=== PATIENT | female | born 1955 | race Caucasian/White ===

== ENCOUNTER 2016-11-27 13:08 | Inpatient (IN) | payer OTHER, MEDICARE ==
[2016-11-27] VITALS (11 sets, daily range): BP systolic 141–197; BP diastolic 67–125; PULSE 57–77; RESP 18–24; TEMP 97.9–98.7; O2SAT 95–98
[~2016-11-27 13:08] MED LIST: AMLO10TA2 PO; GABA300C5 PO; HUMU70IN IJ; HYDR25TA5 PO; IBUP800T23 PO; LISI40TA PO; MELO-1 PO; METF850T PO; METO25TA3 PO; OMEP20CA2 PO; PRAV20TA2 PO; TRIA.1%T TOPICAL
--- NOTE | 2016-11-27 13:31 | PD ---
Physical Exam Time Seen by Provider: 13:29 Narrative 61 y/o with one week chest pain. Seen by dr. Norton and sent here because of an abnormal ekg according to the patient. Vital signs reviewed. Seen at triage desk. Awaiting bed placement. Data Data Last Documented VS Vital Signs Date Time Temp Pulse Resp B/P Pulse Ox O2 Delivery O2 Flow Rate FiO2 11/27/16 13:12 98.4 70 24 197/125 98 Room Air [facility] Medical Record Reviewed: Yes Supervised Visit with LUKASZ: No Jordin Campbell Nov 27, 2016 13:31
[2016-11-27] MEDS ORDERED: ASPIRIN 81 MG CHEW TAB PO STA (14:12)
--- NOTE | 2016-11-27 14:23 | PD ---
HPI Chief Complaint: Chest Pain Time Seen by Provider: 14:05 Travel History International Travel<30 days: No Contact w/Intl Traveler<30days: No Traveled to known affect area: No History of Present Illness HPI 61yo F with PMH of DM, HTN, GERD was sent by her PMD for abnormal EKG today. Pt states she had pressure like chest pain on 11/16, 11/17 and 11/18/16 and that it had resolved but decided to go to her PMD today to follow up on it. Pt was found to have abnormal EKG there and sent here for evaluation. States that it was constant, pressure like and associated with SOB, nausea and diaphoresis. Pt currently denies any chest pain. Denies any fever, n/v, abdominal pain, focal weakness or numbness. PFSH Past Medical History Blood Disorders: No Heart Rhythm Problems: No Cancer: No Cardiovascular Problems: No High Cholesterol: Yes Chest Pain: Yes Congestive Heart Failure: No Diabetes: Yes Patient Takes Glucophage: No Endocrine: Yes Gastrointestinal Disorders: Yes (GERD,REFLUX) Genitourinary: No Hepatitis: No Hiatal Hernia: No Hypertension: Yes Immune Disorder: No Musculoskeletal: No Neurologic: Yes (INVOLUNTARY MUSCLE MOVEMENT) Psychiatric: No Reproductive: No Respiratory: No Myocardial Infarction: No Thyroid Disease: No Tetanus Vaccination: Unknown Influenza Vaccination: No ?: Not Menopausal: Yes Past Surgical History AICD: No Joint Replacement: No Pacemaker: No Social History Alcohol Use: No Tobacco Use: No (QUIT NOVEMBER 2016) Substance Use: No Allergies-Medications (Allergen,Severity, Reaction): Coded Allergies: Keflex (Verified Allergy, Severe, RASH, 08/07/16) Reported Meds & Prescriptions Reported Meds & Active Scripts Active Humulin 70-30 Inj (Insulin NPH Isophane-Reg (Human) 70-30 Inj) 1,000 Unit/10 Ml Vial 60 Units IJ BID PRN 30 Days Amlodipine (Amlodipine Besylate) 10 Mg Tab 10 Mg PO DAILY Ibuprofen 800 Mg Tab 800 Mg PO TID Lisinopril 40 Mg Tab 40 Mg PO DAILY Triamcinolone Topical (Triamcinolone Acetonide) 0.1% Cream 1 Applic TOPICAL BID Reported Gabapentin 300 Mg Cap 300 Mg PO TID Hydrochlorothiazide 25 Mg Tab 25 Mg PO DAILY Metformin (Metformin HCl) 850 Mg Tab 850 Mg PO BIDPC With meals Metoprolol Tartrate 25 Mg Tab 25 Mg PO BID Omeprazole 20 Mg Cap 20 Mg PO DAILY Review of Systems Except as stated in HPI: all other systems reviewed are Neg Physical Exam Narrative GENERAL: 61yo F not in distress. SKIN: Focused skin assessment warm/dry. HEAD: Atraumatic. Normocephalic. EYES: Pupils equal and round. No scleral icterus. No injection or drainage. ENT: No nasal bleeding or discharge. Mucous membranes pink and moist. NECK: Trachea midline. No JVD. CARDIOVASCULAR: Regular rate and rhythm. No murmur appreciated. RESPIRATORY: No accessory muscle use. Clear to auscultation. Breath sounds equal bilaterally. GASTROINTESTINAL: Abdomen soft, non-tender, nondistended. No rebound tenderness or guarding. MUSCULOSKELETAL: No obvious deformities. No clubbing. No cyanosis. No edema. NEUROLOGICAL: Awake and alert. No obvious cranial nerve deficits. Motor grossly within normal limits. Normal speech. PSYCHIATRIC: Appropriate mood and affect; insight and judgment normal. Data Data Last Documented VS Vital Signs Date Time Temp Pulse Resp B/P Pulse Ox O2 Delivery O2 Flow Rate FiO2 11/27/16 14:03 59 21 169/79 98 Room Air 11/27/16 13:12 98.4 Orders Electrocardiogram (11/27/16 ) Troponin I (11/27/16 14:12) Ckmb (Isoenzyme) Profile (11/27/16 14:12) Complete Blood Count With Diff (11/27/16 14:12) Magnesium (Mg) (11/27/16 14:12) Prothrombin Time / Inr (Pt) (11/27/16 14:12) Act Partial Throm Time (Ptt) (11/27/16 14:12) Chest, Single Ap (11/27/16 14:12) Aspirin Chew (Aspirin Chew) (11/27/16 14:12) Basic Metabolic Panel (Bmp) (11/27/16 14:19) Cardiac Catheterization (11/27/16 ) Heparin-Ns/Pf Inj (Heparin-Ns/Pf Inj) (11/27/16 15:09) Midazolam Inj (Versed Inj) (11/27/16 15:09) Fentanyl Inj (Fentanyl Inj) (11/27/16 15:09) Heparin Inj (Heparin Inj) (11/27/16 15:10) Dextrose 50% In Ted (Syr) Inj (D50w (Syr (11/27/16 15:19) Vital Signs (Adult) Q4H (11/27/16 15:19) Crozer / Telemetry .CONTINUOUS (11/27/16 15:19) Sodium Chloride 0.9% Flush (Ns Flush) (11/27/16 15:30) Sodium Chloride 0.9% Flush (Ns Flush) (11/27/16 21:00) Acetaminophen (Tylenol) (11/27/16 15:30) Ondansetron Inj (Zofran Inj) (11/27/16 15:30) Naloxone Inj (Narcan Inj) (11/27/16 15:30) Docusate Sodium-Senna (Jennifer-Colace) (11/27/16 21:00) Magnesium Hydroxide Liq (Milk Of Magnesi (11/27/16 15:30) Sennosides (Senokot) (11/27/16 15:30) Bisacodyl Supp (Dulcolax Supp) (11/27/16 15:30) Lactulose Liq (Lactulose Liq) (11/27/16 15:30) Consult Cardiology (11/27/16 ) Admit Order (Ed Use Only) (11/27/16 15:19) Labs Laboratory Tests Test 11/27/16 14:15 White Blood Count 10.1 TH/MM3 Red Blood Count 4.33 MIL/MM3 Hemoglobin 13.1 GM/DL Hematocrit 38.8 % Mean Corpuscular Volume 89.8 FL Mean Corpuscular Hemoglobin 30.2 PG Mean Corpuscular Hemoglobin 33.7 % Concent Red Cell Distribution Width 13.1 % Platelet Count 420 TH/MM3 Mean Platelet Volume 8.7 FL Neutrophils (%) (Auto) 61.5 % Lymphocytes (%) (Auto) 28.5 % Monocytes (%) (Auto) 8.1 % Eosinophils (%) (Auto) 1.4 % Basophils (%) (Auto) 0.5 % Neutrophils # (Auto) 6.2 TH/MM3 Lymphocytes # (Auto) 2.9 TH/MM3 Monocytes # (Auto) 0.8 TH/MM3 Eosinophils # (Auto) 0.1 TH/MM3 Basophils # (Auto) 0.0 TH/MM3 CBC Comment DIFF FINAL Differential Comment Prothrombin Time 11.5 SEC Prothromb Time International 1.0 RATIO Ratio Activated Partial 30.3 SEC Thromboplast Time Sodium Level 138 MEQ/L Potassium Level 4.0 MEQ/L Chloride Level 103 MEQ/L Carbon Dioxide Level 26.0 MEQ/L Anion Gap 9 MEQ/L Blood Urea Nitrogen 19 MG/DL Creatinine 0.88 MG/DL Estimat Glomerular Filtration 66 ML/MIN Rate Random Glucose 70 MG/DL Calcium Level 9.3 MG/DL Magnesium Level 1.8 MG/DL Total Creatine Kinase 93 U/L Troponin I 0.96 NG/ML [facility] Medical Decision Making Medical Screen Exam Complete: Yes Emergency Medical Condition: Yes Interpretation(s) EKG: Sinus bradycardia at 55bpm. Q wave III, aVF. 1mm ST segment elevation II , III, aVF. Differential Diagnosis ACS vs. pneumonia vs. Narrative Course 61yo F presents to the ED after abnormal EKG at her PMD's office today. States her chest pain was about a week ago from 11/16-11/18/16. Pt decides to follow up with her PMD today. EKG showed Q wave III, aVF as well as TWI inversion and 1mm ST elevation in III, aVF. Pt currently denies any chest pain. Triage wrote chest pain radiating down bilateral arms so I clarified with pt and she has intermittent heaviness in bilateral arms for 2 years. States that she was told it was probably neuropathy. States she currently does not have that. Discussed with Dr. Allan immediately after reviewing the EKG, thinks she had a recent NC. Dr. Allan came to evaluate the patient in the ED. States he will bring her to cardiac cath now but it is not a STEMI and heparin is not needed at this time. CXR negative. Labs reviewed, no leukocytosis. Troponin elevated at 0.96. Pt is already physically in the cardiac laborer tin can. Discussed with Dr. Palmira Stern and admitted to her service. Critical Care Narrative Aggregate critical care time was 35 minutes. Time to perform other separately billable procedures was not included in the critical care time. My time did not include minutes spent treating any other patients simultaneously or on activities that did not directly contribute to the patient's treatment. The services I provided to this patient were to treat and/or prevent clinically significant deterioration that could result in: cardiovascular collapse or . I provided critical care services requiring my management, as noted below: Chart data review, documentation time, medication orders and management, vital sign assessments/reviewing monitor data, ordering and reviewing lab tests, ordering and interpreting/reviewing x-rays and diagnostic studies, care of the patient and discussion of the patient with the admitting physicians. Diagnosis Primary Impression: Chest pain Qualified Code: R07.9 - Chest pain, unspecified type Admitting Information Admitting Physician Requests: Admit Bárbara Holbrook DO Nov 27, 2016 14:23 Bárbara Holbrook DO Nov 27, 2016 14:23
--- NOTE | 2016-11-27 14:52 | RADRPT ---
EXAM DATE/TIME: 11/27/2016 14:39 [place] COMPARISON: No previous studies available for comparison. INDICATIONS : Chest pain MEDICAL HISTORY : None. SURGICAL HISTORY : None. ENCOUNTER: Initial ACUITY: 1 day PAIN SCORE: 4/10 LOCATION: chest FINDINGS: A single view of the chest demonstrates the lungs to be symmetrically aerated without evidence of mas s, infiltrate or effusion. The cardiomediastinal contours are unremarkable. Osseous structures are intact. CONCLUSION: Normal examination. Lake Williamson MD on November 27, 2016 at 14:50 Board Certified Radiologist. This report was verified electronically.
[2016-11-27 15:06] LABS: AUTOMATED NEUTROPHIL # 6.2 TH/MM3 (1.8-7.7); BASOPHIL % 0.5 % (0.0-2.0); EOSINOPHIL # 0.1 TH/MM3 (0-0.4); EOSINOPHIL % 1.4 % (0.0-4.0); HEMATOCRIT 38.8 % (35.0-46.0); HEMO FLAGS DIFF FINAL; LYMPH % 28.5 % (9.0-44.0); LYMPHOCYTE # 2.9 TH/MM3 (1.0-4.8); MEAN CELL VOLUME 89.8 FL (80.0-100.0); MEAN CORPUSCULAR HEMOGLOBIN 30.2 PG (27.0-34.0); MEAN CORPUSCULAR HGB CONC 33.7 % (32.0-36.0); MONO % 8.1 % (0.0-8.0); NEUT % 61.5 % (16.0-70.0); PLATELET COUNT 420 TH/MM3 (150-450); RED BLOOD COUNT 4.33 MIL/MM3 (4.00-5.30); RED CELL DISTRIBUTION WIDTH 13.1 % (11.6-17.2); WHITE BLOOD COUNT 10.1 TH/MM3 (4.0-11.0)
[2016-11-27 15:08] LABS: APTT (PATIENT) 30.3 SEC (24.3-30.1); PROTHROMBIN TIME - PATIENT 11.5 SEC (9.8-11.6)
[2016-11-27] MEDS ORDERED: IOHEXOL 350 MG/ML 100 ML BTL (for Cath Lab) OTHER ONE (15:08)
[2016-11-27] MEDS ORDERED: HEPARIN-NS/PF INJ 500 ML ONE ×2 (15:09→15:22)
[2016-11-27] MEDS ORDERED: MIDAZOLAM HCL 2 MG/2 ML VIAL ONE (15:09)
[2016-11-27] MEDS ORDERED: HEPARIN SODIUM - IV 10,000 UNITS/10 ML VIAL ONE (15:10)
[2016-11-27 15:19] LABS: MAGNESIUM 1.8 MG/DL (1.5-2.5)
[2016-11-27] MEDS ORDERED: DEXTROSE 50% IN WATER 50 ML SYRINGE ONE (15:19)
[2016-11-27] MEDS ORDERED: ONDANSETRON HCL 4 MG/2 ML VIAL IVP PRN (15:30)
[2016-11-27] MEDS ORDERED: BISACODYL 10 MG SUPP RECTAL PRN (15:30)
[2016-11-27] MEDS ORDERED: NALOXONE HCL 0.4 MG/ML AMP IV PRN (15:30)
[2016-11-27] MEDS ORDERED: SENNOSIDES 8.6 MG TAB PO PRN (15:30)
[2016-11-27] MEDS ORDERED: MAGNESIUM HYDROXIDE SUSP 30 ML CUP PO PRN (15:30)
[2016-11-27] MEDS ORDERED: ACETAMINOPHEN 325 MG TAB PO PRN (15:30)
[2016-11-27] MEDS ORDERED: SODIUM CHLORIDE 0.9% FLUSH 10 ML FLUSH IV FLUSH PRN (15:30)
[2016-11-27] MEDS ORDERED: LACTULOSE SYRUP 20 GM/30 ML CUP PO PRN (15:30)
--- NOTE | 2016-11-27 16:32 | CATHPROC ---
[facility] HIS Report Study Information Study Number Admission Scheduled Start Study Start [id number] Nov 27 2016 1:08PM 11/27/2016 Nov 27 2016 3:08PM [facility] Cardiac Catheterization Admit Source Facility Department Other [facility] - Mold Shop Supervisor Physician and Clinical Staff Initial Robert Thomas Meal Packer Willow Martin,RN Other cathlab, cathlab Recorder Curtis Salazar RCIS(BS) Scrub Jeny MccordRT(R) Procedures Performed Procedure Location (Site) Vessel Name Coronary Angiograms LCA Left Coronary L Heart Cath Equipment Time Product Manufacturing Professional Description Size Mfg Part Number Used/Scraped TRANSDUCER, TRUWAVE [id number] 15:10 PRASAD MARTIN * Used W/STOCKCOCK *[id number]- INTRODUCER SET, 15:44 [employer] FR 5 SC-NT-U-SST Used MICROPUNCTURE, STIFFENED *[id number] [id number] *[id number] [id number] *[id number] 15:10 [employer] INDUSTRIES PACK, CCL CUSTOM * Used *[id number] 15:10 Beisen WIRE, 3MMJ .035 180CM 180CM Used *[id number] 15:10 [employer] MANIFOLD, 4 PORT * Used *[id number] 15:10 [employer] BLANKET,WARM AIR CCL * Used *[id number] 15:45 TER[employer]ozun [employer] MEDICAL SHEATH, FR5 TERUMO (10CM) FR 5 Used *[id number] History: Allergies Allergy Reaction Keflex RASH History: Risk Factors Family History of Hypertension Dyslipidemia Previous TN Previous Heart Failure Premature CAD Yes Yes Yes No No Prior Valve Prior PCI Prior CABG Surgery No No No Cerebrovascular Peripheral Artery Chronic Lung On Dialysis Diabetes Diabetes Therapy Disease Disease Disease No No No No Yes Oral History: Symptoms/Diagnosis Selection Items Angina-unstable History: Stress Tests Stress or Imaging Studies Performed No History: Other Disease Selection Items HTN History: Other Current Smoker Method Packs a Day Years Used Pack Years Yes Cigarettes 1 45 45 Labs Hgb (g/dl) 11.60-17.00 Not Drawn Glucose (mg/dl) Creatinine (mg/dl) 74.00-106.00 0.50-1.30 70 Not Drawn Troponin I (ng/ml) CPK-MB (ng/ML) 0.02-0.05 0.50-3.60 0.96 Not Drawn Medication Medication Total Dose (Bolus/Oral) Medication Total Dosage/Unit 1% XYLOCAINE 20 mL FENTANYL 25 mcg VERSED 0.5 mg Medications (Bolus/Oral) Medication Time Given Dosage/Unit Administered By Reason VERSED 11/27/2016 3:37:57 PM 0.5 mg Willow Martin 0.5 mg VERSED given in lab by Willow Martin, RN in Left Antecubital via Peripheral IV. Ordered by Robert Allan. FENTANYL 11/27/2016 3:38:05 PM 25 mcg Deo Martina 25 mcg FENTANYL given in lab by Willow Martin, GIANCARLO in Left Antecubital via Peripheral IV. Ordered by Robert Allan. 1% XYLOCAINE 11/27/2016 3:39:02 PM 20 mL Robert Allan 20 mL 1% XYLOCAINE given in lab by Robert Allan in Right Groin via Subcutaneous. Medication (Drip) Medication Time Given Dosage/Unit Concentration/Unit Diluent (ml) Solutio n IV Solutions 11/27/2016 3:08:27 PM 0 mL (IV) 500 NaCl .9 Patient arrived on IV Solutions given by cathlab, cathgabriel in Left Antecubital via Peripheral IV. Pump /Drip Flow = 20 ml/hr using NaCl .9. Ordered by Robert Allan. Initial Case Assessment Cardiovascular HR Rhythm NIBP Chest Pain 58 sinus 153/64 0 Edema Present Skin color Skin None Normal Warm Dry Circulatory - Right Pulses Dorsalis Pedis Femoral 3 3 Scale (0,1,2,3,4,d) Circulatory - Left Pulses Dorsalis Pedis Femoral 3 3 Scale (0,1,2,3,4,d) Neurological State Oriented to time-place- Alert Moves all extremities person Respiration - General Respiration Rate SpO2 (%) (B/min) 15 98 Final Case Assessment Cardiovascular HR Rhythm NIBP Chest Pain 64 sinus 146/79 0 Edema Present Skin color Skin None Normal Warm Dry Circulatory - Right Pulses Dorsalis Pedis Femoral 3 3 Scale (0,1,2,3,4,d) Circulatory - Left Pulses Dorsalis Pedis Femoral 3 3 Scale (0,1,2,3,4,d) Neurological State Oriented to time-place- Alert Moves all extremities person Respiration - General Respiration Rate SpO2 (%) (B/min) 15 98 Chronological Log Time Study Chronological Log 15:08:15 Patient arrived via Bed. Labs are pending- MD aware. 15:08:16 Patient Name, D.O.B, / Armband Verified By R.N. 15:08:17 Consent signed by the physician and the patient and verified by the Mold Shop Supervisor staff. 15:08:17 Pre-op and post- op instructions given; patient acknowledges understanding of instructions. 15:08:18 Verbal Stimulation=2 Physical Stimulation=2 Airway=2 Respiration=2 TOTAL=8. (0=absent, 1=li mited, 2=present) 15:08:18 Presedation assessment performed by Mold Shop Supervisor RN. 15:08:19 Immediate Presedation assesment performed by physician. 15:08:20 Patient has been NPO for More than 6Hrs. 15:08:22 Skin Breakdown- none per patient 15:08:25 Patient Warmer Placed on the Table. 15:08:26 Catie Prominences Protected 15:08:27 A # 20 IV was noted in the Antecubital (left). Grade = 0 Patient arrived on IV Solutions given by cathlab, cathlab in Left Antecubital via Peripheral IV . Pump/Drip Flow = 20 15:08:27 ml/hr using NaCl .9. Ordered by Robert Allan. 15:08:28 History and physical on the chart or being dictated. Vitals capture started with the following parameters, Patient=Adult, Interval=5 min, Initial Pr ygjldm=339 mmHg, 15:11:06 Deflation Rate=5 mmHg 15:12:23 Reference ECG taken 15:13:34 HR=60 bpm, RGGX=082/64 mmhg, SpO2=96.0 %, Resp=12 B/min, Pain=0, Peggy=10, Casas=2 Assessment: Initial Case, HR=58 BPM, Rhythm=sinus, XRTH=770/64 mmhg, Chest Pain=0, Edema=None, Color=Normal, Skin = Warm, Dry Right Pulses: Braden Ped=3, Femoral=3 15:16:09 Left Pulses: Braden Ped=3, Femoral=3 Neurological: State=Alert, Ox3, FAGAN Respiration: Resp=15 B/min, SpO2=98 % 15:16:50 HR=57 bpm, FERP=868/71 mmhg, SpO2=96.0 %, Resp=15 B/min, Pain=0, Peggy=10, Casas=2 15:18:35 MD arrived. 15:21:51 HR=61 bpm, QBLJ=672/68 mmhg, SpO2=93.0 %, Resp=18 B/min, Pain=0, Peggy=10, Casas=2 15:26:50 HR=60 bpm, ZPCI=879/69 mmhg, SpO2=94.0 %, Resp=13 B/min, Pain=0, Peggy=10, Casas=2 15:28:14 Bilateral groins prepped with 2% chlorhexidine, and with a 3 min. waiting time. 15:28:20 Contrast Scanned 15:28:21 Immediate Presedation assesment performed by physician. 15:31:49 HR=70 bpm, IYIL=519/74 mmhg, SpO2=92.0 %, Resp=15 B/min, Pain=0, Peggy=10, Casas=2 15:35:32 Pressure channel 1 zeroed. 15:36:49 HR=61 bpm, AOOX=709/74 mmhg, SpO2=91.0 %, Resp=12 B/min, Pain=0, Peggy=10, Casas=2 Time Out. Correct patient, correct procedure,correct physician, ,power injector not loaded with contrast with surgical 15:37:36 team present. Time Out Concurred by MD, individual staff in procedure 15:37:49 Case Start 15:37:50 Verbal Stimulation=2 Physical Stimulation=2 Airway=2 Respiration=2 TOTAL=8. (0=absent, 1=li mited, 2=present) 0.5 mg VERSED given in lab by Willow Martin, RN in Left Antecubital via Peripheral IV. Orde red by Jerrell, 15:37:57 Robert. 25 mcg FENTANYL given in lab by Willow Martin, GIANCARLO in Left Antecubital via Peripheral IV. Or dered by Jerrell, 15:38:05 Robert. 15:39:02 20 mL 1% XYLOCAINE given in lab by Robert Allan in Right Groin via Subcutaneous. 15:41:48 HR=63 bpm, GJNV=147/79 mmhg, SpO2=94.0 %, Resp=15 B/min, Pain=0, Peggy=10, Casas=2 15:43:52 Access site was Right Femoral Artery. 15:44:04 A SHEATH, FR5 TERUMO (10CM) FR 5 was advanced into the Fem Art (right) using the Percutaneo us technique. 15:46:13 An injection in the Fem Art (right) was made through the SHEATH, FR5 TERUMO (10CM) FR 5. 15:46:21 A JR 4.0 INFINITI CATHETER FR 5 was advanced over a wire. contrast was used for injections. 15:46:55 HR=59 bpm, MSAK=212/73 mmhg, SpO2=94.0 %, Resp=14 B/min, Pain=0, Peggy=10, Casas=2 Recorded Pressure: LV, HR=57, Condition=Condition 1 15:48:54 (Left Ventricle) LV 143/-3/16 Recorded Pressure: LV, Ao, HR=61, Condition=Condition 1 15:49:13 (Left Ventricle) LV 154/-3/16, (Aorta) Ao 154/63/97 Recorded Pressure: Ao, HR=60, Condition=Condition 1 15:49:32 (Aorta) Ao 151/61/94 15:51:54 HR=59 bpm, CNEE=995/75 mmhg, SpO2=95.0 %, Resp=11 B/min, Pain=0, Peggy=10, Casas=2 15:56:51 HR=62 bpm, PYFZ=774/75 mmhg, SpO2=92.0 %, Resp=19 B/min, Pain=0, Peggy=10, Casas=2 After removing the current catheter a JL 4.0 INFINITI CATHETER FR 5 was advanced over a WIRE, 3 MMJ .035 180CM 15:57:25 180CM. 16:00:34 The LCA was injected and visualized at various angles. contrast used. 16:01:50 HR=67 bpm, AMWZ=950/79 mmhg, SpO2=93.0 %, Resp=16 B/min, Pain=0, Peggy=10, Casas=2 16:04:53 Catheter was removed 16:05:23 Case End Assessment: Final Case, HR=64 BPM, Rhythm=sinus, HIZM=759/79 mmhg, Chest Pain=0, Edema=None, Color=Normal, Skin = Warm, Dry Right Pulses: Braden Ped=3, Femoral=3 16:06:00 Left Pulses: Braden Ped=3, Femoral=3 Neurological: State=Alert, Ox3, FAGAN Respiration: Resp=15 B/min, SpO2=98 % 16:06:51 HR=63 bpm, WNVD=059/79 mmhg, SpO2=96.0 %, Resp=17 B/min, Pain=0, Peggy=10, Casas=2 16:08:25 Cine recording checked. 16:09:28 Catheter(s) removed without difficulty 16:11:54 HR=63 bpm, DAOE=678/80 mmhg, SpO2=95.0 %, Resp=14 B/min, Pain=0, Peggy=10, Casas=2 16:16:57 HR=60 bpm, DDMW=850/78 mmhg, SpO2=96.0 %, Resp=12 B/min, Pain=0, Peggy=10, Casas=2 16:21:58 HR=60 bpm, NFXQ=618/73 mmhg, SpO2=97.0 %, Resp=16 B/min, Pain=0, Peggy=10, Casas=2 16:26:53 HR=70 bpm, HFSU=186/88 mmhg, SpO2=97.0 %, Resp=19 B/min, Pain=0, Peggy=10, Casas=2 16:28:36 Sterile dressing applied to site 16:28:41 Bedside Report will be given. 16:28:43 Contrast Scanned 16:28:45 Verbal Stimulation=2 Physical Stimulation=2 Airway=2 Respiration=2 TOTAL=8. (0=absent, 1=l imited, 2=present) 16:28:52 A Left Heart Cath was performed. 16:28:59 Vitals capture stopped. 16:29:00 Patient moved to [facility] End Study - Contrast Media Used In Study Contrast Total Opened (mL) Total Used (mL) Total Wasted (mL) Omnipaque 80 80 0 End Study - Radiation Exposure Fluoro Time (minutes) 7.3 End Study - Sheaths Sheaths Pulled By Sheath Hold Time (min) Jeny Mccord 20 End Study - Patient Disposition Complications Transferred To Interventional Outcome No Mold Shop Supervisor Holding No attempt made
[2016-11-27] MEDS ORDERED: hydrALAZINE HCL 20 MG/ML VIAL IV PUSH PRN (16:45)
[2016-11-27] MEDS ORDERED: CLOPIDOGREL 300 MG TAB PO ONE (16:45)
[2016-11-27] MEDS ORDERED: oxyCODONE/ACETAMINOPHEN 5 MG/325 MG TAB PO PRN ×2 (16:45)
--- NOTE | 2016-11-27 16:58 | HHI.HP ---
[facility] Sven Valera MD Admission Diagnosis Recent [place] Diagnoses: Chief Complaint: abdnomal EKG Travel History International Travel<30 Days: No Contact w/Intl Traveler <30 Da: No Traveled to Known Affected Are: No History of Present Illness 61 y/o F with PMHx of HTN, T2DM insulin dependent, peripheral neuropathy, and tobacco dependence stopped November 16, 2016 who presented with abnormal EKG. Patient stated that one week ago she had chest pain described as a tightness with severe nausea vomiting from 11/16-11/18. She stated that she did not seek medical attention because she thought was a new medication that she was on. Patient stated on that day she also stop smoking. She smoked a half to 1 pack per day for 45 years. Patient saw her primary care physician today in regards to that episode. She stated that he did EKG and sent her to the emergency department. On the EKG she was found to have Q wave III, aVF as well as TWI inversion and 1mm ST elevation in III, aVF. Licensed Optical Dispenser Dr. Allan consulted and patient was taken to the [facility]. Patient was found to have a 99 % occlusion RCA. Review of Systems Constitutional: DENIES: Diaphoretic episodes, Fatigue, Fever, Weight gain, Weight loss, Chills, Dizziness, Change in appetite, Night Sweats Endocrine: DENIES: Abnorml menstrual pattern, Heat/cold intolerance, Polydipsia , Polyuria, Polyphagia Eyes: DENIES: Blurred vision, Diplopia, Eye inflammation, Eye pain, Vision loss , Photosensitivity, Double Vision Ears, nose, mouth, throat: DENIES: Tinnitus, Hearing loss, Vertigo, Nasal discharge, Oral lesions, Throat pain, Hoarseness, Ear Pain, Running Nose, Epistaxis, Sinus Pain, Toothache, Odynophagia Respiratory: DENIES: Apneas, Cough, Snoring, Wheezing, Hemoptysis, Sputum production, Shortness of breath Cardiovascular: DENIES: Chest pain, Palpitations, Syncope, Dyspnea on Exertion , PND, Lower Extremity Edema, Orthopnea, Claudication Gastrointestinal: DENIES: Abdominal pain, Black stools, Bloody stools, Constipation, Diarrhea, Nausea, Vomiting, Difficulty Swallowing, Anorexia Genitourinary: DENIES: Abnormal vaginal bleeding, Dysmenorrhea, Dyspareunia, Sexual dysfunction, Urinary frequency, Urinary incontinence, Urgency, Hematuria , Dysuria, Nocturia, Vaginal discharge Musculoskeletal: DENIES: Joint pain, Muscle aches, Stiffness, Joint Swelling, Back pain, Neck pain Integumentary: DENIES: Abnormal pigmentation, Pruritus, Rash, Nail changes, Breast masses, Breast skin changes, Nipple discharge Hematologic/lymphatic: DENIES: Bruising, Lymphadenopathy Immunologic/allergic: DENIES: Eczema, Urticaria Neurologic: DENIES: Abnormal gait, Headache, Localized weakness, Paresthesias, Seizures, Speech Problems, Tremor, Poor Balance Psychiatric: DENIES: Anxiety, Confusion, Mood changes, Depression, Hallucinations, Agitation, Suicidal Ideation, Homicidal Ideation, Delusions Past Family Social History Past Medical History Hypertension, type 2 diabetes insulin-dependent, peripheral neuropathy, anxiety , cerebritis, history of back spasms, GERD Past Surgical History Wrist surgery Reported Medications Humulin 70-30 Inj (Insulin NPH Isophane-Reg (Human) 70-30 Inj) 1,000 Unit/10 Ml Vial 60 Units IJ BID PRN 30 Days Amlodipine (Amlodipine Besylate) 10 Mg Tab 10 Mg PO DAILY Ibuprofen 800 Mg Tab 800 Mg PO TID Lisinopril 40 Mg Tab 40 Mg PO DAILY Triamcinolone Topical (Triamcinolone Acetonide) 0.1% Cream 1 Applic TOPICAL BID Gabapentin 300 Mg Cap 300 Mg PO TID Hydrochlorothiazide 25 Mg Tab 25 Mg PO DAILY Metformin (Metformin HCl) 850 Mg Tab 850 Mg PO BIDPC With meals Metoprolol Tartrate 25 Mg Tab 25 Mg PO BID Omeprazole 20 Mg Cap 20 Mg PO DAILY Allergies: Coded Allergies: Keflex (Verified Allergy, Severe, RASH, 08/07/16) Active Ordered Medications Current Medications Aspirin 324 mg 324 mg NOW STAT PO Last administered on 11/27/16 14:30; Start 11/27/16 at 14:12; Stop 11/27/16 at 14:14; Status DC Heparin Sodium/ Sodium Chloride (Heparin-NS/Pf Inj) 500 ml @ As Directed STK- MED ONCE .ROUTE Last administered on 11/27/16 15:09; Start 11/27/16 at 15:09; Stop 11/27/16 at 15:10; Status DC Midazolam HCl (Versed Inj) 2 mg STK-MED ONCE .ROUTE Last administered on 15:09; Start 11/27/16 at 15:09; Stop 11/27/16 at 15:10; Status DC Fentanyl Citrate (fentaNYL INJ) 100 mcg STK-MED ONCE .ROUTE Last administered on 11/27/16 15:09; Start 11/27/16 at 15:09; Stop 11/27/16 at 15:10; Status DC Heparin Sodium (Porcine) (Heparin Inj) 10,000 units STK-MED ONCE .ROUTE ; Start 11/27/16 at 15:10; Stop 11/27/16 at 15:11; Status DC Dextrose (D50w (Syr) Inj) 50 ml STK-MED ONCE .ROUTE Last administered on 15:19; Start 11/27/16 at 15:19; Stop 11/27/16 at 15:20; Status DC Sodium Chloride (NS Flush) 2 ml UNSCH PRN IV FLUSH FLUSH AFTER USING IV ACCESS ; Start 11/27/16 at 15:30; Status UNV Sodium Chloride (NS Flush) 2 ml BID IV FLUSH ; Start 11/27/16 at 21:00; Status UNV Acetaminophen (Tylenol) 650 mg Q4H PRN PO TEMP > 100.4; Start 11/27/16 at 15:30 Ondansetron HCl (Zofran Inj) 4 mg Q6H PRN IVP NAUSEA OR VOMITING; Start at 15:30; Status UNV Naloxone HCl (Narcan Inj) 0.4 mg UNSCH PRN IV SEE LABEL COMMENTS; Start at 15:30; Status UNV Senna/Docusate Sodium (Jennifer-Colace) 1 tab BID PO ; Start 11/27/16 at 21:00 Magnesium Hydroxide (Milk Of Magnesia Liq) 30 ml Q12H PRN PO MILD - MODERATE CONSTIPATION; Start 11/27/16 at 15:30; Status UNV Sennosides (Senokot) 17.2 mg Q12H PRN PO MODERATE - SEVERE CONSTIPATION; Start 11/27/16 at 15:30; Status UNV Bisacodyl (Dulcolax Supp) 10 mg DAILY PRN RECTAL SEVERE CONSITIPATION; Start at 15:30 Lactulose 30 ml 30 ml DAILY PRN PO SEVERE CONSITIPATION; Start 11/27/16 at 15: 30 Heparin Sodium/ Sodium Chloride (Heparin-NS/Pf Inj) 500 ml @ As Directed STK- MED ONCE .ROUTE Last administered on 11/27/16t 15:22; Start 11/27/16 at 15:22; Stop 11/27/16 at 15:23; Status DC Oxycodone/ Acetaminophen (Percocet 5-325 Mg) 1 tab Q4H PRN PO PAIN SCALE 1 TO 4; Start 11/27/16 at 16:45; Status UNV Oxycodone/ Acetaminophen (Percocet 5-325 Mg) 2 tab Q4H PRN PO PAIN SCALE 5 TO 10; Start 11/27/16 at 16:45; Status UNV Aspirin (Aspirin Chew) 81 mg DAILY CHEW ; Start 11/28/16 at 09:00 Clopidogrel Bisulfate (Plavix) 600 mg ONCE ONCE PO ; Start 11/27/16 at 16:45; Stop 11/27/16 at 16:52; Status DC Clopidogrel Bisulfate (Plavix) 75 mg DAILY PO ; Start 11/28/16 at 09:00 Atorvastatin Calcium (Lipitor) 80 mg HS PO ; Start 11/27/16 at 21:00 Hydralazine HCl (Apresoline Inj) 10 mg Q4H PRN IV PUSH SBP>160, DBP>90; Start 11/27/16 at 16:45 Family History Brother had a history of WI, sister history of cardiovascular disease, mother has history of WI, father had history of WI at age of 48. Social History Patient was at home with her . She smoked tobacco half a pack per day to 1 pack per day for 45 years stopped on 11/16/16. Occasionally smokes marijuana. Denies any alcohol use. Physical Exam Vital Signs Vital Signs Date Time Temp Pulse Resp B/P Pulse Ox O2 Delivery O2 Flow Rate FiO2 11/27/16 14:03 59 21 169/79 98 Room Air 11/27/16 13:12 98.4 70 24 197/125 98 Room Air Physical Exam GENERAL: This is a well-nourished, well-developed patient, in no apparent distress. SKIN: No rashes, ecchymoses or lesions. Cool and dry. HEAD: Atraumatic. Normocephalic. No temporal or scalp tenderness. EYES: Pupils equal round and reactive. Extraocular motions intact. No scleral icterus. No injection or drainage. ENT: Nose without bleeding, purulent drainage or septal hematoma. Throat without erythema, tonsillar hypertrophy or exudate. Uvula midline. Airway patent. NECK: Trachea midline. No JVD or lymphadenopathy. Supple, nontender, no meningeal signs. CARDIOVASCULAR: Regular rate and rhythm without murmurs, gallops, or rubs. RESPIRATORY: Clear to auscultation. Breath sounds equal bilaterally. No wheezes , rales, or rhonchi. GASTROINTESTINAL: Abdomen soft, non-tender, nondistended. No hepato-splenomegaly , or palpable masses. No guarding. MUSCULOSKELETAL: Extremities without clubbing, cyanosis, or edema. No joint tenderness, effusion, or edema noted. No calf tenderness. Negative Homans sign bilaterally. NEUROLOGICAL: Awake and alert. Cranial nerves II through XII intact. Motor and sensory grossly within normal limits. Five out of 5 muscle strength in all muscle groups. Normal speech. Laboratory Laboratory Tests Test 11/27/16 14:15 White Blood Count 10.1 Red Blood Count 4.33 Hemoglobin 13.1 Hematocrit 38.8 Mean Corpuscular Volume 89.8 Mean Corpuscular Hemoglobin 30.2 Mean Corpuscular Hemoglobin 33.7 Concent Red Cell Distribution Width 13.1 Platelet Count 420 Mean Platelet Volume 8.7 Neutrophils (%) (Auto) 61.5 Lymphocytes (%) (Auto) 28.5 Monocytes (%) (Auto) 8.1 Eosinophils (%) (Auto) 1.4 Basophils (%) (Auto) 0.5 Neutrophils # (Auto) 6.2 Lymphocytes # (Auto) 2.9 Monocytes # (Auto) 0.8 Eosinophils # (Auto) 0.1 Basophils # (Auto) 0.0 CBC Comment DIFF FINAL Differential Comment Prothrombin Time 11.5 Prothromb Time International 1.0 Ratio Activated Partial 30.3 Thromboplast Time Sodium Level 138 Potassium Level 4.0 Chloride Level 103 Carbon Dioxide Level 26.0 Anion Gap 9 Blood Urea Nitrogen 19 Creatinine 0.88 Estimat Glomerular Filtration 66 Rate Random Glucose 70 Calcium Level 9.3 Magnesium Level 1.8 Total Creatine Kinase 93 Troponin I 0.96 Result Diagram: 11/27/16 1415 11/27/16 1415 Imaging Last Impressions Chest X-Ray 11/27/16 1412 Signed Impressions: Service Date/Time: November 14:39 - CONCLUSION: Normal examination. Lake Williamson MD Assessment and Plan Assessment and Plan 61-year-old female with past medical history hypertension, type 2 diabetes insulin-dependent, peripheral neuropathy who presented with chest pain 1 week ago and found to have an abnormal EKG NSTEMI -Troponin elevated at 0.96 EKG showing Q wave III, aVF as well as TWI inversion and 1mm ST elevation in III, aVF -Status post cardiac catheterization done today showing 99% included RCA. -Per Dr. Allan recommend medical management. -Patient was put on aspirin, Plavix, statin. Patient is bradycardia so metoprolol was held. -Continue to monitor over telemetry. Type 2 diabetes insulin dependent with peripheral neuropathy -Blood sugar on admission was 70 and she was given D50. Now 120s and went back to 70. -Patient takes Humulin 70/30 60 units in the morning at night she stated that it is very well controlled. -Due to low blood sugars will hold home dosage of Novolin. -Put patient on D5 half-normal saline at a low rate. -Will also put patient on hypoglycemic protocol and insulin sliding scale. -Continue gabapentin. Hypertension -Will hold ROSY and metoprolol as above. Resume amlodipine. GERD -Continue home medication. Tobacco dependence -Patient quit on 11/16/16. -Encouragement to continue smoking cessation given. DVT prophylaxis -Patient given multiple blood thinners during cardiac catheterization. SCDs. Discussed Condition With patient and Physician Certification 2 Midnight Certification Type: Admission for Inpatient Services Order for Inpatient Services The services are ordered in accordance with Medicare regulations or non- Medicare payer requirements, as applicable. In the case of services not specified as inpatient-only, they are appropriately provided as inpatient services in accordance with the 2-midnight benchmark. Estimated LOS (days): 2 2 days is the estimated time the patient will need to remain in the hospital, assuming treatment plan goals are met and no additional complications. Post-Hospital Plan: Home Palmira Stern MD Nov 27, 2016 16:58
[2016-11-27] MEDS ORDERED: DEXTROSE 50% IN WATER 50 ML VIAL(D50) IV PRN (17:00)
[2016-11-27] MEDS ORDERED: GLUCAGON 1 MG/ML VIAL OTHER PRN (17:00)
[2016-11-27] MEDS ORDERED: DEXT 5%-NACL 0.45% 1000 ML INJ 1,000 ML IV SCH (17:00)
[2016-11-27] MEDS: GABAPENTIN 300 MG CAP PO SCH (18:27)
[2016-11-27] MEDS: SODIUM CHLORIDE 0.9% FLUSH 10 ML FLUSH IV FLUSH SCH (20:37)
[2016-11-27] MEDS: TRIAMCINOLONE ACETONIDE 0.1% CREAM 15 GM TOPICAL SCH (20:37)
[2016-11-27] MEDS: ATORVASTATIN 80 MG TAB PO SCH (20:38)
[2016-11-27] MEDS: DOCUSATE SODIUM 50 MG/SENNA 8.6 MG TAB PO SCH (20:38)
[2016-11-27] MEDS: INSULIN ASPART SUPPLEMENTAL SCALE SQ SCH (21:28)
[2016-11-28] VITALS (28 sets, daily range): BP systolic 125–161; BP diastolic 67–76; PULSE 47–71; RESP 16–18; TEMP 97.8–98.6; O2SAT 95–99
[2016-11-28 05:51] LABS: BASOPHIL # 0.1 TH/MM3 (0-0.2); BASOPHIL % 0.7 % (0.0-2.0); EOSINOPHIL # 0.1 TH/MM3 (0-0.4); HEMATOCRIT 35.9 % (35.0-46.0); HEMO FLAGS DIFF FINAL; LYMPH % 25.3 % (9.0-44.0); LYMPHOCYTE # 2.3 TH/MM3 (1.0-4.8); MEAN CELL VOLUME 88.6 FL (80.0-100.0); MEAN CORPUSCULAR HEMOGLOBIN 30.7 PG (27.0-34.0); MEAN CORPUSCULAR HGB CONC 34.6 % (32.0-36.0); MONO % 7.1 % (0.0-8.0); NEUT % 65.9 % (16.0-70.0); PLATELET COUNT 373 TH/MM3 (150-450); RED BLOOD COUNT 4.06 MIL/MM3 (4.00-5.30); RED CELL DISTRIBUTION WIDTH 12.9 % (11.6-17.2); WHITE BLOOD COUNT 9.1 TH/MM3 (4.0-11.0)
[2016-11-28 06:16] LABS: BICARBONATE 27.4 MEQ/L (21.0-32.0); POTASSIUM 3.8 MEQ/L (3.5-5.1)
[2016-11-28 06:19] LABS: HDL CHOLESTEROL 37.1 MG/DL (40.0-60.0)
[2016-11-28] MEDS: INSULIN ASPART SUPPLEMENTAL SCALE SQ SCH ×4 (06:21→21:00)
--- NOTE | 2016-11-28 07:52 | MB ---
cc: ROBERT MACK DO DATE OF CONSULTATION: 11/27/[address] elevations on EKG. HISTORY OF PRESENT ILLNESS Susana Shields is a pleasant 61-year-old female who presented to [facility] Emergency Room on December 05, 2016 at the recommendation of her primary care physician. She states that on November 16, 2016 she was started on gemfibrozil and started noticing chest pain. Chest pain lasted from November 16 through November 18 and she felt it was a side effect from the medication. She did not seek medical attention for her chest pain. Since November 18 she has had no further chest pain. She saw her primary care physician today for what I believe was a normal visit and they did an EKG and because of the ST elevation she was sent to the emergency department. On arrival EKG was done and it shows Q-waves in the inferior leads with mild ST elevation and T-wave inversions consistent with a recent myocardial infarction. In speaking to her she states that she has no chest pain or shortness of breath and feels fine overall. PAST MEDICAL HISTORY 1. Hypertension. 2. Diabetes mellitus. 3. Peripheral neuropathy. 4. Anxiety. 5. History of back spasms. 6. GERD. 7. Tobacco abuse. PAST SURGICAL HISTORY Wrist surgery. ALLERGIES KEFLEX. MEDICATIONS 1. Lisinopril 40 mg daily. 2. Gabapentin 300 mg t.i.d. 3. Metoprolol tartrate 25 mg b.i.d. 4. Metformin 850 mg t.i.d. 5. Norvasc 10 mg daily. 6. Humulin 70/30, 60 units b.i.d. 7. Ibuprofen 800 mg t.i.d. 8. Omeprazole 20 mg daily. 9. Hydrochlorothiazide 25 mg daily. FAMILY HISTORY Brother had a history of myocardial infarction. Sister had a history of cardiovascular disease. Mother had a history of myocardial infarction. Father had a history of myocardial infarction at the age of 48. SOCIAL HISTORY The patient lives at home with her significant other. She smokes half-a-pack to a pack a day, recently stopping. She occasionally smokes marijuana. Denies alcohol or drug abuse. REVIEW OF SYSTEMS 14 systems were reviewed including osteopathic with pertinent positives and negatives as above, otherwise negative. PHYSICAL EXAMINATION VITAL SIGNS: Temperature 98.4, heart rate 70, blood pressure 169/79, respirations 20, pulse ox 98% on room air. GENERAL: In general the patient appears well in no acute distress, alert, awake and oriented x3. Extraocular muscles intact. Mucous membranes moist. NECK: Supple. No JVD at 45 degrees. No carotid bruits heard bilaterally. Carotid upstroke is brisk in nature. HEART: Regular rate and rhythm. Positive first and second heart sounds with no murmurs, gallops or rubs. PMI is nondisplaced. LUNGS: Clear have decreased breath sounds bilaterally with no overt wheezes, rales or rhonchi. ABDOMEN: Soft, nontender, nondistended. No organomegaly noted. EXTREMITIES: No clubbing, cyanosis or edema. Femoral and distal pulses are intact bilaterally. NEUROLOGIC: No focal deficits. SKIN: Warm, dry and intact. MUSCULOSKELETAL: Osteopathically with no kyphoscoliosis, lordosis or paraspinal tender points. LABORATORY Hemoglobin 13.1, hematocrit 38.8, platelets 420. Potassium 4.0, BUN 19, creatinine 0.88. Troponin 0.96. Electrocardiogram (November 27, 2016 at 1354): Sinus bradycardia at 55 beats per minute, inferior Q-waves with ST elevation and T-wave inversion consistent with recent myocardial infarction. IMPRESSION 1. Recent myocardial infarction, most likely November 16, 2016, with no further chest pain. 2. Presumed coronary artery disease. 3. Elevated troponin, most likely due to her recent myocardial infarction. 4. Hypertension. 5. Diabetes mellitus. 6. Tobacco abuse. RECOMMENDATIONS 1. Ms. Shields appears to have had her myocardial infarction around a week and a half ago and has since not had any chest pain. Because of her recent myocardial infarction she should undergo cardiac catheterization for definition of her coronary anatomy. As she is currently hemodynamically and electrically stable, not having chest pain and not in heart failure, she has most likely infarcted this part of her heart. 2. Will check a 2-D echo to look at her overall left ventricular function, cardiac structure and possible valulopathies. 3. She will be started on medications for her presumed coronary artery disease including aspirin and Plavix. No heparin is needed at this time as she is most likely infarcted this portion of her heart. 4. Further recommendations will be made after coronary visualization. Thank you for allowing me to see Susana Shields. If there are any questions, please do not hesitate to call. Robert MONIQUE/ERIN /9:00 PM /7:33 AM
--- NOTE | 2016-11-28 08:16 | MA ---
cc: ROBERT MACK DO DATE: 11/27/2016 PROCEDURE Left heart catheterization, coronary angiogram, moderate sedation 30 minutes. PREPROCEDURE DIAGNOSIS Recent NM by EKG; previously with chest pain but not having chest pain for the past 8 days POSTPROCEDURE DIAGNOSIS Recent myocardial infarction with significant disease in her RCA, currently hemodynamically and electrically stable with no chest pain or congestive heart failure for medical management. MEDICATIONS 1. Fentanyl 25 mcg. 2. Versed 0.5 mg CONTRAST 80 cc. FLUOROSCOPY 7.3 minutes. SEDATION Moderate sedation, 30 minutes. PROCEDURAL SUMMARY Susana Shields is a pleasant 61-year-old female who originally had chest pain in November 16, 2016 that lasted until November 18, 2016. Since that time she has had no further chest pain. She presented to [facility] Emergency Room on November 27, 2016 due to an abnormal EKG in her primary care physician's office. On arrival she was found to have ST elevations in the inferior leads with Q-waves and T-wave inversions consistent with recent myocardial infarction. Because of this it was felt that her coronary anatomy needed to be defined but she had most likely already infarcted the inferior portion of her heart as she no longer had chest pain. The risks, benefits and alternatives were explained to her and she consented as such. She was brought to the lab and prepped in the usual sterile fashion. The right femoral artery was accessed using a modified Seldinger technique and placement of a 5-Chinese sheath. This was easily aspirated and flushed. A JR4 was advanced over a J-wire to the ascending aorta and across the aortic valve into the left ventricle for measurement of left ventricular pressure. This was pulled back across the aortic valve showing no significant gradient of aortic stenosis. The JR4 was then used for selective angiography of the right coronary system. The JR4 was exchanged out for a JL4 which was used for selective angiography of the left coronary system. The JL4 was then removed over a J-wire. The femoral sheath was removed and pressure was held for hemostasis. 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 FINDINGS The left main is overall a short vessel with adequate reflux and no significant disease. It bifurcates into an LAD and circumflex. The LAD is a normal size vessel with proximal disease of 40-50% and mid to distal disease of 40%. It gives off two small diagonals which are overall small with diffuse disease. The left circumflex is a normal size vessel with diffuse 20% disease throughout. It gives off three obtuse marginals with diffuse 30% disease. The RCA overall is a small to moderate size vessel with mild luminal irregularities throughout the proximal and midportion with a 99% lesion in the distal portion and a 90% lesion in the ostial PDA which is overall a small vessel. There are some notable [id number]-hdpuh collaterals, although minimal in nature. The left ventricular end-diastolic pressure is 16. IMPRESSIONS 1. Recent myocardial infarction, most likely happening on November 16, 2016, with EKG changes showing recent infarction. 2. Coronary artery disease as above with probable infarction of her inferior wall. 3. Currently no chest pain for the last eight days. RECOMMENDATIONS 1. Ms. Shields appears to have had her myocardial infarction on November 16, 2016 when her chest pain started. On arrival she was asymptomatic for the past nine days. During cardiac catheterization she was found to have a 99% lesion in the distal RCA and distal to this is most likely infarcted territory. She has been chest pain free, not in heart failure, hemodynamically and electrically stable at this time. Intervention was felt to be inappropriate as it has been greater than [address]-elevation myocardial infarction and she is currently stable. 2. Will continue medical management for coronary artery disease, although she does have moderate disease of her LAD. 3. She will be watched in the hospital for 48 hours. 4. Will obtain a 2-D echo to look at her overall left ventricular function, cardiac structure and possible valvulopathies. 5. She was placed on aspirin, Plavix and statin therapy. Beta frida has been held as her heart rates were in the upper 50s, low 60s, but this can be reviewed throughout the hospital course. 6. Upon discharge she will follow-up with me in the office and consideration could be made for stress testing at that time to look for possible ischemia of the LAD region as this is moderate disease. Thank you for allowing me to see Susana Shields. If there are any questions, please do not hesitate to call. Robert Mack DO VGP/BT /9:50 PM /8:05 AM
[2016-11-28] MEDS: DOCUSATE SODIUM 50 MG/SENNA 8.6 MG TAB PO SCH ×2 (08:31→21:00)
[2016-11-28] MEDS: GABAPENTIN 300 MG CAP PO SCH ×3 (08:31→16:58)
[2016-11-28] MEDS: ASPIRIN 81 MG CHEW TAB CHEW SCH (08:32)
[2016-11-28] MEDS: CLOPIDOGREL 75 MG TAB PO SCH (08:32)
[2016-11-28] MEDS: PANTOPRAZOLE SOD 20 MG DELAYED RELEASE TAB PO SCH (08:32)
[2016-11-28] MEDS: TRIAMCINOLONE ACETONIDE 0.1% CREAM 15 GM TOPICAL SCH ×2 (08:32→21:00)
[2016-11-28] MEDS: SODIUM CHLORIDE 0.9% FLUSH 10 ML FLUSH IV FLUSH SCH ×2 (08:33→21:22)
--- NOTE | 2016-11-28 08:50 | HHI.PR ---
Subjective Remarks Follow-up for recent AL status post cardiac catheterization Patient denies any chest pain, shortness of breathing, palpitation, lightheadedness or dizziness. She stated she is doing well. Her nurse is at the bedside during the interview. Objective Vitals Vital Signs Date Time Temp Pulse Resp B/P Pulse Ox O2 Delivery O2 Flow Rate FiO2 11/28/16 07:28 98.1 50 18 125/72 99 11/28/16 06:00 49 11/28/16 05:00 47 11/28/16 04:00 50 11/28/16 03:00 98.4 54 18 143/70 96 11/28/16 03:00 52 11/28/16 02:00 52 11/28/16 01:00 51 11/28/16 00:00 55 11/27/16 23:00 60 11/27/16 23:00 98.7 57 18 165/74 97 11/27/16 22:00 59 11/27/16 21:00 64 11/27/16 20:00 68 11/27/16 19:33 98.4 61 18 141/74 95 11/27/16 19:00 65 11/27/16 18:09 66 11/27/16 17:00 72 11/27/16 16:45 97.9 77 18 162/67 96 11/27/16 14:03 59 21 169/79 98 Room Air 11/27/16 13:12 98.4 70 24 197/125 98 Room Air I/O 11/27/16 11/27/16 11/27/16 11/28/16 11/28/16 11/28/16 07:00 15:00 23:00 07:00 15:00 23:00 Intake Total 480 ml Output Total 300 ml Balance 180 ml Intake Oral 480 ml Output Urine Total 300 ml # Voids 1 # Bowel Movements 1 Result Diagram: 11/28/16 0459 11/28/16 0459 Objective Remarks GENERAL: in NAD SKIN: right groin wound dry clean intact HEAD: Normocephalic. EYES: No scleral icterus. No injection or drainage. NECK: Supple, trachea midline. No JVD or lymphadenopathy. CARDIOVASCULAR: Regular rate and rhythm without murmurs, gallops, or rubs. RESPIRATORY: Breath sounds equal bilaterally. No accessory muscle use. Medications and IVs Current Medications Aspirin 324 mg 324 mg NOW STAT PO Last administered on 11/27/16 14:30; Start 11/27/16 at 14:12; Stop 11/27/16 at 14:14; Status DC Heparin Sodium/ Sodium Chloride (Heparin-NS/Pf Inj) 500 ml @ As Directed STK- MED ONCE .ROUTE Last administered on 11/27/16 15:09; Start 11/27/16 at 15:09; Stop 11/27/16 at 15:10; Status DC Midazolam HCl (Versed Inj) 2 mg STK-MED ONCE .ROUTE Last administered on 15:09; Start 11/27/16 at 15:09; Stop 11/27/16 at 15:10; Status DC Fentanyl Citrate (fentaNYL INJ) 100 mcg STK-MED ONCE .ROUTE Last administered on 11/27/16 15:09; Start 11/27/16 at 15:09; Stop 11/27/16 at 15:10; Status DC Heparin Sodium (Porcine) (Heparin Inj) 10,000 units STK-MED ONCE .ROUTE ; Start 11/27/16 at 15:10; Stop 11/27/16 at 15:11; Status DC Dextrose (D50w (Syr) Inj) 50 ml STK-MED ONCE .ROUTE Last administered on 15:19; Start 11/27/16 at 15:19; Stop 11/27/16 at 15:20; Status DC Sodium Chloride (NS Flush) 2 ml UNSCH PRN IV FLUSH FLUSH AFTER USING IV ACCESS Last administered on 11/27/16 18:27; Start 11/27/16 at 15:30 Sodium Chloride (NS Flush) 2 ml BID IV FLUSH Last administered on 11/28/16 08: 33; Start 11/27/16 at 21:00 Acetaminophen (Tylenol) 650 mg Q4H PRN PO TEMP > 100.4 Last administered on 20:37; Start 11/27/16 at 15:30 Ondansetron HCl (Zofran Inj) 4 mg Q6H PRN IVP NAUSEA OR VOMITING; Start at 15:30 Naloxone HCl (Narcan Inj) 0.4 mg UNSCH PRN IV SEE LABEL COMMENTS; Start at 15:30 Senna/Docusate Sodium (Jennifer-Colace) 1 tab BID PO ; Start 11/27/16 at 21:00 Magnesium Hydroxide (Milk Of Magnesia Liq) 30 ml Q12H PRN PO MILD - MODERATE CONSTIPATION; Start 11/27/16 at 15:30 Sennosides (Senokot) 17.2 mg Q12H PRN PO MODERATE - SEVERE CONSTIPATION; Start 11/27/16 at 15:30 Bisacodyl (Dulcolax Supp) 10 mg DAILY PRN RECTAL SEVERE CONSITIPATION; Start at 15:30 Lactulose 30 ml 30 ml DAILY PRN PO SEVERE CONSITIPATION; Start 11/27/16 at 15: 30 Heparin Sodium/ Sodium Chloride (Heparin-NS/Pf Inj) 500 ml @ As Directed STK- MED ONCE .ROUTE Last administered on 11/27/16 15:22; Start 11/27/16 at 15:22; Stop 11/27/16 at 15:23; Status DC Oxycodone/ Acetaminophen (Percocet 5-325 Mg) 1 tab Q4H PRN PO PAIN SCALE 1 TO 4; Start 11/27/16 at 16:45 Oxycodone/ Acetaminophen (Percocet 5-325 Mg) 2 tab Q4H PRN PO PAIN SCALE 5 TO 10; Start 11/27/16 at 16:45 Aspirin (Aspirin Chew) 81 mg DAILY CHEW Last administered on 11/28/16 08:32; Start 11/28/16 at 09:00 Clopidogrel Bisulfate (Plavix) 600 mg ONCE ONCE PO Last administered on 17:39; Start 11/27/16 at 16:45; Stop 11/27/16 at 16:52; Status DC Clopidogrel Bisulfate (Plavix) 75 mg DAILY PO Last administered on 11/28/16 08 :32; Start 11/28/16 at 09:00 Atorvastatin Calcium (Lipitor) 80 mg HS PO Last administered on 11/27/16 20:38 ; Start 11/27/16 at 21:00 Hydralazine HCl (Apresoline Inj) 10 mg Q4H PRN IV PUSH SBP>160, DBP>90; Start 11/27/16 at 16:45 Dextrose (D50w (Vial) Inj) 50 ml UNSCH PRN IV HYPOGLYCEMIA-SEE COMMENTS; Start 11/27/16 at 17:00 Glucagon (Glucagon Inj) 1 mg UNSCH PRN OTHER HYPOGLYCEMIA-SEE COMMENTS; Start 11/27/16 at 17:00 Insulin Aspart 1 1 ACHS SLIDING SCALE SQ Last administered on 11/27/16 21:28 ; Start 11/27/16 at 21:00 Dextrose/Sodium Chloride (D5W-1/2 NS 1000 ml Inj) 1,000 ml @ 60 mls/hr [id number] IV Last administered on 11/27/16 18:28; Start 11/27/16 at 17:00 Amlodipine Besylate (Norvasc) 10 mg DAILY PO Last administered on 11/28/16 08: 32; Start 11/28/16 at 09:00 Gabapentin (Neurontin) 300 mg TID PO Last administered on 11/28/16 08:31; Start 11/27/16 at 18:00 Triamcinolone Acetonide (Aristocort 0.1% Cream) 1 applic BID TOPICAL Last administered on 11/28/16 08:32; Start 11/27/16 at 21:00 Pantoprazole Sodium (Protonix) 20 mg DAILY PO Last administered on 11/28/16 08 :32; Start 11/28/16 at 09:00 A/P Assessment and Plan 61-year-old female with past medical history hypertension, type 2 diabetes insulin-dependent, peripheral neuropathy who presented with chest pain 1 week ago and found to have an abnormal EKG Recent AL/STEMI on 11/16/2016 -Troponin elevated at 0.96 EKG showing Q wave III, aVF as well as TWI inversion and 1mm ST elevation in III, aVF -Status post cardiac catheterization done today showing 99% included RCA. -[employer] Dr. Allan is following and recommended medical management. -Continue with aspirin, Plavix, statin. Patient continues to be bradycardia so will continue to hold metoprolol. -Continue to monitor over telemetry. Type 2 diabetes insulin dependent with peripheral neuropathy -Blood sugar on admission was 70 and she was given D50. Now 120s and went back to 70. -Patient takes Humulin 70/30 60 units BID, she stated that it is very well controlled. -Due to low blood sugars Humulin held. -Today blood sugars and 130s to 160. We will discontinue D5 half-normal saline. -Continue with insulin sliding scale. -Continue gabapentin. Hypertension -Will hold ROSY and metoprolol as above. On amlodipine. GERD -Continue home medication. Tobacco dependence -Patient quit on 11/16/16. -Encouragement given to continue smoking cessation. DVT prophylaxis -Patient given multiple blood thinners during cardiac catheterization. SCDs. Discharge Planning Possible discharge tomorrow if cleared by [employer]. Palmira Stern MD Nov 28, 2016 08:50
--- NOTE | 2016-11-28 11:30 | PD.CARD.PN ---
Subjective Subjective Remarks No chest pain, no shortness of breath Doing well overall Objective Medications Current Medications Medications (Trade) Dose Ordered Sig/Paula Route Start Time Stop Time Status Last Admin (NS Flush) 2 ml UNSCH PRN IV FLUSH 11/27/16 15:30 11/27/16 18:27 (NS Flush) 2 ml BID IV FLUSH 11/27/16 21:00 11/28/16 08:33 (Tylenol) 650 mg Q4H PRN PO 11/27/16 15:30 11/27/16 20:37 (Zofran Inj) 4 mg Q6H PRN IVP 11/27/16 15:30 (Narcan Inj) 0.4 mg UNSCH PRN IV 11/27/16 15:30 (Jennifer-Colace) 1 tab BID PO 11/27/16 21:00 (Milk Of Magnesia Liq) 30 ml Q12H PRN PO 11/27/16 15:30 (Senokot) 17.2 mg Q12H PRN PO 11/27/16 15:30 (Dulcolax Supp) 10 mg DAILY PRN RECTAL 11/27/16 15:30 (Lactulose Liq) 30 ml DAILY PRN PO 11/27/16 15:30 (Percocet 5-325 Mg) 1 tab Q4H PRN PO 11/27/16 16:45 (Percocet 5-325 Mg) 2 tab Q4H PRN PO 11/27/16 16:45 (Aspirin Chew) 81 mg DAILY CHEW 11/28/16 09:00 11/28/16 08:32 (Plavix) 75 mg DAILY PO 11/28/16 09:00 11/28/16 08:32 (Lipitor) 80 mg HS PO 11/27/16 21:00 11/27/16 20:38 (Apresoline Inj) 10 mg Q4H PRN IV PUSH 11/27/16 16:45 (D50w (Vial) Inj) 50 ml UNSCH PRN IV 11/27/16 17:00 (Glucagon Inj) 1 mg UNSCH PRN OTHER 11/27/16 17:00 (Norvasc) 10 mg DAILY PO 11/28/16 09:00 11/28/16 08:32 (Neurontin) 300 mg TID PO 11/27/16 18:00 11/28/16 08:31 (Aristocort 0.1% Cream) 1 applic BID TOPICAL 11/27/16 21:00 11/28/16 08:32 (Protonix) 20 mg DAILY PO 11/28/16 09:00 11/28/16 08:32 Vital Signs / I&O Vital Signs Date Time Temp Pulse Resp B/P Pulse Ox O2 Delivery O2 Flow Rate FiO2 11/28/16 07:28 98.1 50 18 125/72 99 11/28/16 06:00 49 11/28/16 05:00 47 11/28/16 04:00 50 11/28/16 03:00 98.4 54 18 143/70 96 11/28/16 03:00 52 11/28/16 02:00 52 11/28/16 01:00 51 11/28/16 00:00 55 11/27/16 23:00 60 11/27/16 23:00 98.7 57 18 165/74 97 11/27/16 22:00 59 11/27/16 21:00 64 11/27/16 20:00 68 11/27/16 19:33 98.4 61 18 141/74 95 11/27/16 19:00 65 11/27/16 18:09 66 11/27/16 17:00 72 11/27/16 16:45 97.9 77 18 162/67 96 11/27/16 14:03 59 21 169/79 98 Room Air 11/27/16 13:12 98.4 70 24 197/125 98 Room Air I/O 11/27/16 11/27/16 11/27/16 11/28/16 11/28/16 11/28/16 07:00 15:00 23:00 07:00 15:00 23:00 Intake Total 480 ml Output Total 300 ml Balance 180 ml Intake Oral 480 ml Output Urine Total 300 ml # Voids 1 # Bowel Movements 1 Physical Exam GENERAL: NAD, AAOx3 SKIN: Warm and dry. HEAD: Atraumatic. Normocephalic. EYES: Pupils equal and round. No scleral icterus. No injection or drainage. ENT: No nasal bleeding or discharge. Mucous membranes pink and moist. NECK: Trachea midline. No JVD. CARDIOVASCULAR: Regular but bradycardic RESPIRATORY: No accessory muscle use. Clear to auscultation. Breath sounds equal bilaterally. GASTROINTESTINAL: Abdomen soft, non-tender, nondistended. Hepatic and splenic margins not palpable. MUSCULOSKELETAL: Extremities without clubbing, cyanosis, or edema. No obvious deformities. Right femoral no hematoma/bruit, neurovascularly intact distally NEUROLOGICAL: Awake and alert. No obvious cranial nerve deficits. Motor grossly within normal limits. Five out of 5 muscle strength in the arms and legs. Normal speech. PSYCHIATRIC: Appropriate mood and affect; insight and judgment normal. Laboratory Laboratory Tests Test 11/27/16 11/28/16 14:15 04:59 White Blood Count 10.1 TH/MM3 9.1 TH/MM3 Red Blood Count 4.33 MIL/MM3 4.06 MIL/MM3 Hemoglobin 13.1 GM/DL 12.4 GM/DL Hematocrit 38.8 % 35.9 % Mean Corpuscular Volume 89.8 FL 88.6 FL Mean Corpuscular Hemoglobin 30.2 PG 30.7 PG Mean Corpuscular Hemoglobin 33.7 % 34.6 % Concent Red Cell Distribution Width 13.1 % 12.9 % Platelet Count 420 TH/MM3 373 TH/MM3 Mean Platelet Volume 8.7 FL 8.7 FL Neutrophils (%) (Auto) 61.5 % 65.9 % Lymphocytes (%) (Auto) 28.5 % 25.3 % Monocytes (%) (Auto) 8.1 % 7.1 % Eosinophils (%) (Auto) 1.4 % 1.0 % Basophils (%) (Auto) 0.5 % 0.7 % Neutrophils # (Auto) 6.2 TH/MM3 6.0 TH/MM3 Lymphocytes # (Auto) 2.9 TH/MM3 2.3 TH/MM3 Monocytes # (Auto) 0.8 TH/MM3 0.6 TH/MM3 Eosinophils # (Auto) 0.1 TH/MM3 0.1 TH/MM3 Basophils # (Auto) 0.0 TH/MM3 0.1 TH/MM3 CBC Comment DIFF FINAL DIFF FINAL Differential Comment Prothrombin Time 11.5 SEC Prothromb Time International 1.0 RATIO Ratio Activated Partial 30.3 SEC Thromboplast Time Sodium Level 138 MEQ/L 137 MEQ/L Potassium Level 4.0 MEQ/L 3.8 MEQ/L Chloride Level 103 MEQ/L 101 MEQ/L Carbon Dioxide Level 26.0 MEQ/L 27.4 MEQ/L Anion Gap 9 MEQ/L 9 MEQ/L Blood Urea Nitrogen 19 MG/DL 13 MG/DL Creatinine 0.88 MG/DL 0.85 MG/DL Estimat Glomerular Filtration 66 ML/MIN 68 ML/MIN Rate Random Glucose 70 MG/DL 132 MG/DL Calcium Level 9.3 MG/DL 9.0 MG/DL Magnesium Level 1.8 MG/DL Total Creatine Kinase 93 U/L Troponin I 0.96 NG/ML Triglycerides Level 183 MG/DL Cholesterol Level 208 MG/DL LDL Cholesterol 134 MG/DL HDL Cholesterol 37.1 MG/DL Cholesterol/HDL Ratio 5.60 RATIO Assessment and Plan Problem List: (1) STEMI (ST elevation myocardial infarction) Assessment and Plan: Presenting 11 days after chest pain. EKG with ST elevation minimal, Q waves with inverted T waves consistent with recent myocardial infarction (2) CAD (coronary artery disease) (3) Diabetes (4) Hypertension (5) Tobacco abuse (6) Hyperlipidemia Assessment and Plan 1) Presenting 11 days after initial chest pain with no chest pain for the past 9 days 2) 99% Distal RCA, most likely infarcted distally No chest pain, no heart failure, hemodynamically and electrically stable so no intervention done Con't medical management 3) Does have other disease including LAD moderate disease Plan stress testing in the office on discharge 4) ASA/Plavix/Statin/Norvasc No BB due to baseline bradycardia 5) If stable in the morning, patient can be discharged from a cardiovascular standpoint for follow up with me in the office If any questions over the weekend, please call my group for covering physician Problem Qualifiers (1) STEMI (ST elevation myocardial infarction): Qualified Code: I21.11 - ST elevation myocardial infarction involving right coronary artery Robert Allan DO Nov 28, 2016 11:30
--- NOTE | 2016-11-28 14:57 | EKG ---
Date Performed: 11/27/2016 Time Performed: 13:54:53 PTAGE: 61 years EKG: SINUS BRADYCARDIA INFERIOR MYOCARDIAL INFARCTION ACUTE NE PREVIOUS TRACING : 04/20/2015 07.03 Compared to the previous tracing ACUTE INFERIOR WALL MYOCARDIAL INFARCTION IS NEW DOCTOR: Lamin Salmon Interpretating Date/Time 11/28/2016 14:54:05
--- NOTE | 2016-11-28 16:26 | ECHRPT ---
Indication: Atherosclerotic heart disease of [place] coronary artery with unspecified angina pector is CONCLUSIONS Normal left ventricular size. Wall thickness is normal. The left ventricular systolic function is normal with an estimated ejection fraction in the range of 55-60%. Trace mitral valve regurgitation. Aortic valve sclerosis is present. Trivial pulmonary valve regurgitation. BP: 125 / 72 HR: 50 Rhythm: Sinus MEASUREMENTS (Male / Female) Normal Values Technical Quality:Good 2D ECHO LV Diastolic Diameter PLAX 5.2 cm 4.2 - 5.9 / 3.9 - 5.3 cm LV Systolic Diameter PLAX 3.8 cm IVS Diastolic Thickness 1.0 cm 0.6 - 1.0 / 0.6 - 0.9 cm LVPW Diastolic Thickness 0.8 cm 0.6 - 1.0 / 0.6 - 0.9 cm LV Relative Wall Thickness 0.3 RV Internal Dim ED PLAX 2.2 cm LA Systolic Diameter LX 4.0 cm 3.0 - 4.0 / 2.7 - 3.8 cm M-MODE Aortic Root Diameter MM 3.0 cm AV Cusp Separation MM 2.0 cm DOPPLER AV Peak Velocity 251.0 cm/s AV Peak Gradient 25.2 mmHg AV Mean Gradient 13.0 mmHg AV Velocity Time Integral 59.7 cm LVOT Peak Velocity 124.0 cm/s LVOT Peak Gradient 6.2 mmHg LVOT Velocity Time Integral 28.4 cm Mitral E Point Velocity 66.0 cm/s Mitral A Point Velocity 107.0 cm/s Mitral E to A Ratio 0.6 LV E' Lateral Velocity 6.4 cm/s Mitral E to LV E' Lateral Ratio 10.3 LV E' Septal Velocity 7.1 cm/s Mitral E to LV E' Septal Ratio 9.3 TR Peak Velocity 228.0 cm/s TR Peak Gradient 20.8 mmHg FINDINGS LEFT VENTRICLE Normal left ventricular size. Wall thickness is normal. The left ventricular systolic function is normal with an estimated ejection fraction in the range of 55-60%. RIGHT VENTRICLE Normal right ventricular size and systolic function. LEFT ATRIUM The left atrial size is normal. RIGHT ATRIUM The right atrial size is normal. ATRIAL SEPTUM Normal atrial septal thickness without atrial level shunting by limited color doppler interrogation. AORTA The aortic root and proximal ascending aorta are normal in size on limited imaging. MITRAL VALVE Trace mitral valve regurgitation. AORTIC VALVE Aortic valve sclerosis is present. TRICUSPID VALVE Structurally normal tricuspid valve. No tricuspid valve stenosis or regurgitation. PULMONARY VALVE Trivial pulmonary valve regurgitation. VESSELS The inferior vena cava is normal in size. PERICARDIUM No pericardial effusion. Roe Camargo MD, FACC, [facility] [place] (Electronically Signed) Final Date:28 November 2016 16:25
[2016-11-28] MEDS: ATORVASTATIN 80 MG TAB PO SCH (21:22)
[2016-11-29] VITALS (16 sets, daily range): BP systolic 139–150; BP diastolic 70–83; PULSE 47–60; RESP 18–20; TEMP 97.8–98.4; O2SAT 95–96
[2016-11-29] MEDS: INSULIN ASPART SUPPLEMENTAL SCALE SQ SCH ×2 (06:29→12:02)
[2016-11-29] MEDS: DOCUSATE SODIUM 50 MG/SENNA 8.6 MG TAB PO SCH (09:00)
[2016-11-29] MEDS: SODIUM CHLORIDE 0.9% FLUSH 10 ML FLUSH IV FLUSH SCH (09:17)
[2016-11-29] MEDS: PANTOPRAZOLE SOD 20 MG DELAYED RELEASE TAB PO SCH (09:18)
[2016-11-29] MEDS: CLOPIDOGREL 75 MG TAB PO SCH (09:18)
[2016-11-29] MEDS: ASPIRIN 81 MG CHEW TAB CHEW SCH (09:18)
[2016-11-29] MEDS: GABAPENTIN 300 MG CAP PO SCH ×2 (09:18→12:03)
[2016-11-29] MEDS: TRIAMCINOLONE ACETONIDE 0.1% CREAM 15 GM TOPICAL SCH (09:59)
[2016-11-29] MEDS ORDERED: ATOR1TAB18 PO (10:44)
[2016-11-29] MEDS ORDERED: ASPI81CH25 CHEW (10:44)
[2016-11-29] MEDS ORDERED: AMLO10TA2 PO (10:44)
[2016-11-29] MEDS ORDERED: PLAV75TA29 PO (10:44)
--- NOTE | 2016-11-29 10:53 | HHI.PR ---
Subjective Remarks Patient feels well, denies any chest pain, shortness of breath, nausea or vomiting. She is eager to go home. She tells that she was a little sweaty last night however denied any dizziness or lightheadedness or nausea or vomiting at that time. This has resolved per patient. Discussed with RN and no concern at this time. Objective Vitals Vital Signs Date Time Temp Pulse Resp B/P Pulse Ox O2 Delivery O2 Flow Rate FiO2 11/29/16 10:00 56 11/29/16 09:00 52 11/29/16 08:09 48 11/29/16 08:09 98.4 52 20 139/83 96 11/29/16 08:00 50 11/29/16 07:00 48 11/29/16 07:00 51 11/29/16 06:00 48 11/29/16 05:00 49 11/29/16 04:00 47 11/29/16 03:05 98.2 60 18 142/70 95 11/29/16 03:00 54 11/29/16 02:00 50 11/29/16 01:00 48 11/29/16 00:00 54 11/28/16 23:00 98.3 59 18 141/67 95 11/28/16 23:00 54 11/28/16 22:00 50 11/28/16 21:00 51 11/28/16 20:00 64 11/28/16 19:42 98.3 71 18 161/76 97 11/28/16 19:00 49 11/28/16 18:06 59 11/28/16 17:00 54 11/28/16 16:17 51 11/28/16 15:05 98.6 53 16 142/73 95 11/28/16 15:00 59 11/28/16 14:03 48 11/28/16 13:00 52 11/28/16 12:00 52 11/28/16 11:05 97.8 59 16 144/68 98 11/28/16 11:00 53 I/O 11/28/16 11/28/16 11/28/16 11/29/16 11/29/16 11/29/16 07:00 15:00 23:00 07:00 15:00 23:00 Intake Total 480 ml 1100 ml 720 ml Output Total 300 ml 1350 ml 700 ml Balance 180 ml -250 ml 20 ml Intake Oral 480 ml 1100 ml 720 ml Output Urine Total 300 ml 1350 ml 700 ml # Bowel Movements 1 1 Result Diagram: 11/28/16 0459 11/28/16 0459 Imaging Last Impressions Chest X-Ray 11/27/16 1412 Signed Impressions: Service Date/Time: , November 27, 2016 14:39 - CONCLUSION: Normal examination. Lake Williamson MD Objective Remarks GENERAL: Ambulating in room. SKIN: Cool and dry. HEAD: Normocephalic. EYES: Extraocular motion intact NECK: Supple, trachea midline. CARDIOVASCULAR: Regular rate and rhythm without murmurs RESPIRATORY: Breath sounds equal bilaterally. No accessory muscle use. EXT: Moves extremities well. A/P Assessment and Plan 61-year-old female with past medical history hypertension, type 2 diabetes insulin-dependent, peripheral neuropathy who presented with chest pain 1 week ago and found to have an abnormal EKG Recent TX/STEMI on 11/16/2016 -Troponin elevated at 0.96 EKG showing Q wave III, aVF as well as TWI inversion and 1mm ST elevation in III, aVF -Status post cardiac catheterization, showing 99% included RCA. -[employer] Dr. Allan is following has cleared patient for discharge today. Follow up with him as an outpatient for stress test -Continue with aspirin, Plavix, statin. Patient continues to be bradycardia so will continue to hold metoprolol. She has been notified of this. -Reviewed telemetry which showed sinus bradycardia. Type 2 diabetes insulin dependent with peripheral neuropathy -Blood sugar on admission was 70 and she was given D50. Now 120s and went back to 70. -Patient takes Humulin 70/30 60 units BID, she stated that it is very well controlled at home with current regimen. We will resume. Hold metformin but can resume it in a week. -Continue gabapentin. Hypertension -Will hold ROSY and metoprolol as above. On amlodipine. 2 continue. Patient to follow-up with PCP and cardiology as an outpatient GERD -Continue home medication. Tobacco dependence -Patient quit on 11/16/16. -Encouragement given to continue smoking cessation. Discharge Planning Okay to discharge this morning. Follow-up with cardiology in a week Follow-up with primary care physician in a week Scripts in chart Patient to be on a Heart healthy/diabetic diet Activity ad nikhil. Condition: stable Lorraine Santos MD Nov 29, 2016 10:53
--- NOTE | 2016-11-29 12:11 | PD.CARD.PN ---
Subjective Subjective Remarks Pt without CV complaints- no CP Objective Medications Current Medications Medications (Trade) Dose Ordered Sig/Paula Route Start Time Stop Time Status Last Admin (NS Flush) 2 ml UNSCH PRN IV FLUSH 11/27/16 15:30 11/27/16 18:27 (NS Flush) 2 ml BID IV FLUSH 11/27/16 21:00 11/29/16 09:17 (Tylenol) 650 mg Q4H PRN PO 11/27/16 15:30 11/27/16 20:37 (Zofran Inj) 4 mg Q6H PRN IVP 11/27/16 15:30 (Narcan Inj) 0.4 mg UNSCH PRN IV 11/27/16 15:30 (Jennifer-Colace) 1 tab BID PO 11/27/16 21:00 (Milk Of Magnesia Liq) 30 ml Q12H PRN PO 11/27/16 15:30 (Senokot) 17.2 mg Q12H PRN PO 11/27/16 15:30 (Dulcolax Supp) 10 mg DAILY PRN RECTAL 11/27/16 15:30 (Lactulose Liq) 30 ml DAILY PRN PO 11/27/16 15:30 (Percocet 5-325 Mg) 1 tab Q4H PRN PO 11/27/16 16:45 (Percocet 5-325 Mg) 2 tab Q4H PRN PO 11/27/16 16:45 (Aspirin Chew) 81 mg DAILY CHEW 11/28/16 09:00 11/29/16 09:18 (Plavix) 75 mg DAILY PO 11/28/16 09:00 11/29/16 09:18 (Lipitor) 80 mg HS PO 11/27/16 21:00 11/28/16 21:22 (Apresoline Inj) 10 mg Q4H PRN IV PUSH 11/27/16 16:45 (D50w (Vial) Inj) 50 ml UNSCH PRN IV 11/27/16 17:00 (Glucagon Inj) 1 mg UNSCH PRN OTHER 11/27/16 17:00 (Norvasc) 10 mg DAILY PO 11/28/16 09:00 11/29/16 09:18 (Neurontin) 300 mg TID PO 11/27/16 18:00 11/29/16 12:03 (Aristocort 0.1% Cream) 1 applic BID TOPICAL 11/27/16 21:00 11/29/16 09:59 (Protonix) 20 mg DAILY PO 11/28/16 09:00 11/29/16 09:18 Vital Signs / I&O Vital Signs Date Time Temp Pulse Resp B/P Pulse Ox O2 Delivery O2 Flow Rate FiO2 11/29/16 12:05 54 11/29/16 11:51 97.8 54 18 150/74 96 11/29/16 11:00 50 11/29/16 10:00 56 11/29/16 09:00 52 11/29/16 08:09 48 11/29/16 08:09 98.4 52 20 139/83 96 11/29/16 08:00 50 11/29/16 07:00 48 11/29/16 07:00 51 11/29/16 06:00 48 11/29/16 05:00 49 11/29/16 04:00 47 11/29/16 03:05 98.2 60 18 142/70 95 11/29/16 03:00 54 11/29/16 02:00 50 11/29/16 01:00 48 11/29/16 00:00 54 11/28/16 23:00 98.3 59 18 141/67 95 11/28/16 23:00 54 11/28/16 22:00 50 11/28/16 21:00 51 11/28/16 20:00 64 11/28/16 19:42 98.3 71 18 161/76 97 11/28/16 19:00 49 11/28/16 18:06 59 11/28/16 17:00 54 11/28/16 16:17 51 11/28/16 15:05 98.6 53 16 142/73 95 11/28/16 15:00 59 11/28/16 14:03 48 11/28/16 13:00 52 I/O 11/28/16 11/28/16 11/28/16 11/29/16 11/29/16 11/29/16 06:59 14:59 22:59 06:59 14:59 22:59 Intake Total 480 ml 1100 ml 720 ml Output Total 300 ml 1350 ml 700 ml Balance 180 ml -250 ml 20 ml Intake Oral 480 ml 1100 ml 720 ml Output Urine Total 300 ml 1350 ml 700 ml # Bowel Movements 1 1 Physical Exam GENERAL: Well developed, well nourished. No acute distress. HEENT: Jugular venous pressure is normal. CHEST: Lungs clear to auscultation bilaterally. Unlabored respiratory effort. CARDIAC: Regular rate and rhythm without S3, S4, or murmur. ABDOMEN: Soft, nontender, no hepatosplenomegaly. Bowel sounds present. EXTREMITIES: No clubbing, cyanosis, or edema. Imaging Last 72 hours Impressions Chest X-Ray 11/27/16 1412 Signed Impressions: Service Date/Time: , November 27, 2016 14:39 - CONCLUSION: Normal examination. Lake Williamson MD Assessment and Plan Problem List: (1) STEMI (ST elevation myocardial infarction) Assessment and Plan: Presenting 11 days after chest pain. EKG with ST elevation minimal, Q waves with inverted T waves consistent with recent myocardial infarction -stable and asymptomatic with medical management -ok for d/c (2) CAD (coronary artery disease) (3) Diabetes (4) Hypertension (5) Tobacco abuse (6) Hyperlipidemia Problem Qualifiers (1) STEMI (ST elevation myocardial infarction): Qualified Code: I21.11 - ST elevation myocardial infarction involving right coronary artery Geri Darby MD Nov 29, 2016 12:11
== END 2016-11-29 14:02 | disposition home or self-care (01) | DRG 282 ==
LOC: NEPC 13:08 → NEDA 15:21 → HCIN 16:50
PROVIDERS: ADMIT Hospitalist; ATTEND Hospitalist
PROC: 4A023N7 Measurement of Cardiac Sampling and Pressure, Left Heart, Percutaneous Approach (ICD-10-PCS; 2016-11-27)
PROC: B2111ZZ Fluoroscopy of Multiple Coronary Arteries using Low Osmolar Contrast (ICD-10-PCS; principal; 2016-11-27 14:00)
DX: I21.19 ST elevation (STEMI) myocardial infarction involving other coronary artery of inferior wall (principal); E11.42 Type 2 diabetes mellitus with diabetic polyneuropathy; Z79.4 Long term (current) use of insulin; Z79.84 Long term (current) use of oral hypoglycemic drugs; I25.10 Atherosclerotic heart disease of native coronary artery without angina pectoris; K21.9 Gastro-esophageal reflux disease without esophagitis; I10 Essential (primary) hypertension; Z87.891 Personal history of nicotine dependence; F12.90 Cannabis use, unspecified, uncomplicated; Z82.49 Family history of ischemic heart disease and other diseases of the circulatory system
CPT/HCPCS: 71010; 80048; 80061; 82550; 82948; 83735; 84484; 85025; 85610; 85730; 93005; 93306; 93454; 99291; C1769; C1893; J1644; J1815; J2250; J3010; Q9967

== ENCOUNTER 2016-12-30 07:42 | Day surgery (SDC) | payer OTHER ==
[~2016-12-30] VITALS: Ht 172.7 cm; Wt 74.1 kg
[2016-12-30] VITALS (8 sets, daily range): BP systolic 142–157; BP diastolic 70–80; PULSE 50–60; RESP 16–18; TEMP 98.1–98.6; O2SAT 94–98
[~2016-12-30 07:42] MED LIST changes: +ASPI81CH25 CHEW; +ATOR1TAB18 PO; -HYDR25TA5 PO; -IBUP800T23 PO; -LISI40TA PO; -MELO-1 PO; -METF850T PO; -METO25TA3 PO; +PLAV75TA29 PO; -PRAV20TA2 PO
[2016-12-30] MEDS ORDERED: IOHEXOL 350 MG/ML 100 ML BTL (for Cath Lab) OTHER ONE (07:43)
[2016-12-30] MEDS ORDERED: IOHEXOL 350 MG/ML 50 ML BTL (for Cath Lab) OTHER ONE (07:43)
[2016-12-30] MEDS ORDERED: SODIUM CHLOR 0.9% 1000 ML INJ 1,000 ML IV SCH ×2 (08:15→11:54)
[2016-12-30] MEDS ORDERED: LISI40TA PO (08:43)
[2016-12-30] MEDS ORDERED: HYDR-3133 PO (08:43)
[2016-12-30] MEDS ORDERED: METF500T PO (08:43)
[2016-12-30] MEDS ORDERED: HYDR25TA5 PO (08:43)
[2016-12-30] MEDS ORDERED: ASPIRIN 81 MG CHEW TAB PO ONE (08:52)
[2016-12-30] MEDS ORDERED: ASPIRIN 81 MG CHEW TAB ONE (08:52)
[2016-12-30 08:57] LABS: AUTOMATED NEUTROPHIL # 4.3 TH/MM3 (1.8-7.7); BASOPHIL % 0.6 % (0.0-2.0); EOSINOPHIL # 0.2 TH/MM3 (0-0.4); EOSINOPHIL % 2.2 % (0.0-4.0); HEMATOCRIT 39.8 % (35.0-46.0); HEMO FLAGS DIFF FINAL; LYMPH % 27.3 % (9.0-44.0); LYMPHOCYTE # 1.9 TH/MM3 (1.0-4.8); MEAN CELL VOLUME 89.1 FL (80.0-100.0); MEAN CORPUSCULAR HEMOGLOBIN 29.7 PG (27.0-34.0); MEAN CORPUSCULAR HGB CONC 33.3 % (32.0-36.0); NEUT % 60.9 % (16.0-70.0); PLATELET COUNT 254 TH/MM3 (150-450); RED BLOOD COUNT 4.46 MIL/MM3 (4.00-5.30); RED CELL DISTRIBUTION WIDTH 13.3 % (11.6-17.2)
[2016-12-30 09:07] LABS: APTT (PATIENT) 28.1 SEC (24.3-30.1); INTERNATIONAL NORMALIZED RATIO 1.1 RATIO; PROTHROMBIN TIME - PATIENT 11.7 SEC (9.8-11.6)
[2016-12-30 09:11] LABS: BICARBONATE 28.3 MEQ/L (21.0-32.0); POTASSIUM 3.6 MEQ/L (3.5-5.1)
[2016-12-30] MEDS ORDERED: HEPARIN-NS/PF INJ 1,000 ML ONE (09:31)
[2016-12-30] MEDS ORDERED: MIDAZOLAM HCL 2 MG/2 ML VIAL ONE (09:32)
[2016-12-30] MEDS ORDERED: HEPARIN SODIUM - IV 10,000 UNITS/10 ML VIAL ONE (09:56)
--- NOTE | 2016-12-30 11:53 | CATHPROC ---
[place] [employer] HIS Report Study Information Study Number Admission Scheduled Start Study Start [id number] Dec 30 2016 7:42AM 12/30/2016 Dec 30 2016 9:08AM [place] [facility] Cardiac Catheterization Admit Source Facility Department Other [facility] Physician and Clinical Staff Initial Robert Thomas Animal Pathology Teacher Rip Herr,GIANCARLO Recorder Rochelle Kan,(R) (BS) Scrub Curtis Salazar RCIS(BS) Procedures Performed Procedure Location (Site) Vessel Name Drug Eluting Inflatio RCA Dist Right Coronary L Heart Cath PTCA RCA Dist Right Coronary Wire insertion Fem Art (right) Femoral Art Equipment Time Solutions Manager Description Size Mfg Part Number Used/Scraped [id number] 10:35 GUERRERO [employer] WIRE, ASAHI FIELDER XT 190CM 180CM Used *[id number] 10:38 [employer]ERRERO [employer] WIRE, ASAHI FIELDER XT 190CM 180CM Used *[id number] 61046-00 10:54 [employer] WIRE, ASAHI GRANDSLAM 300CM 300CM Used *[id number] WIRE, BALANCE MIDDLEWEIGHT [id number] 10:24 [employer]ERRERO [employer]ARE 300CM Used 300CM *[id number] 10:43 [employer] WIRE, [employer] 200 300CM 300CM Used *[id number] TRANSDUCER, TRUWAVE [id number] 09:14 PRASAD MEDINA * Used W/STOCKCOCK *[id number] 11:04 [employer] SCI[employer]IFIC BALLOON, 2.0 8MM EMERGE MR 2.0 8MM Used *[id number] INTRODUCER SET, [id number] 09:54 [employer]. FR 5 Used MICROPUNCTURE *[id number] [id number] *[id number] *[id number] [phone] *[id number] 09:14 MEDLINE INDUSTRIES PACK, CCL CUSTOM * Used *[id number] 10:31 MEDTRONIC BALLOON, 1.5 X 6MM SPRINTER 6MM Used *[id number] BALLOON, 2.25 X 8MM NC [id number] 11:21 MEDTRONIC 8MM Used EUPHORA *[id number] STENT, 2.25 14 RESOLUTE [id number] 11:09 MEDTRONIC 2.25 14 Used INTEGRITY RX *[id number] [id number] 11:00 [employer] 30 YAHIR INDEFLATOR Used *[id number] 09:14 JumpIn MEDICAL SHEATH, FR5.5 PRELUDE 11CM FR 5 [id number] Used [id number] 09:51 MERIT MEDICAL SHEATH, FR6.5 PRELUDE 11CM FR 6.5 038ACT Used *[id number] 09:14 JumpIn MEDICAL WIRE, 3MMJ .035 180CM 180CM Used *1093877 [id number] 09:14 NAMIC MANIFOLD, 4 PORT * Used *[id number] 09:14 NYCOMED OMNIPAQUE, 350 MG, 150ML 150ML [id number] Used [id number] 09:14 KEARNEY MEDICAL BLANKET,WARM AIR CCL * Used *[id number] [id number] 09:55 TERUMO MEDICAL SHEATH, FR6 TERUMO (10CM) FR 6 Used *[id number] Equipment Model, Serial, Lot Number and Expiration Data Description Model Number Serial Number Lot Number Expiration Date BALLOON, 2.25 X 8MM NC [id number] 11-19-2018 EUPHORA STENT, 2.25 14 RESOLUTE [id number] 06-14-2018 INTEGRITY RX History: Current Medications Medication Dosage/Unit Route Frequency Last Date/Time Taken ASA PLAVIX History: Allergies Allergy Reaction Keflex RASH cephalexin RASH History: Risk Factors Family History of Hypertension Dyslipidemia Previous VT Previous Heart Failure Premature CAD Yes Yes Yes No No Prior Valve Prior PCI Prior CABG Surgery No No No Cerebrovascular Peripheral Artery Chronic Lung On Dialysis Diabetes Diabetes Therapy Disease Disease Disease No No No No Yes Oral History: Stress Tests Stress or Imaging Studies Performed Yes Standard Exercise Stress Test No Stress Echo No Stress Test SPECT Yes Stress Test CMR No Cardiac CTA Coronary Calcium Score No No History: Other Disease Selection Items HTN History: Other Current Smoker Method Packs a Day Years Used Pack Years Yes Cigarettes 1 45 45 Labs Hgb (g/dl) Hct (%) RBC (MIL/MM3) WBC (l/cumm) Platelets (thousands) 11.60-17.00 35.00-51.00 4.00-5.90 4.00-11.00 150.00-450.00 13.2 39.8 4.4 7 254 Glucose (mg/dl) BUN (mg/dl) Creatinine (mg/dl) BUN:Creatinine (1:x) 74.00-106.00 7.00-18.00 0.50-1.30 10.00-20.00 134 12 0.7 17.1 Na (meq/l) K (meq/l) Cl (meq/l) CO2 (mmol/L) 136.00-145.00 3.50-5.10 98.00-107.00 21.00-32.00 137 3.6 102 28.3 PT (sec) INR (PTT:PT) 9.80-11.60 0.90-1.10 11.7 1.1 CPK-MB (ng/ML) 0.50-3.60 Not Drawn Medication Medication Total Dose (Bolus/Oral) Medication Total Dosage/Unit 1% XYLOCAINE 20 mL FENTANYL 50 mcg HEPARIN 37823 units NTG (IC) 200 mcg VERSED 1.5 mg Medications (Bolus/Oral) Medication Time Given Dosage/Unit Administered By Reason VERSED 12/30/2016 9:49:29 AM 1 mg Rip Herr 1 mg VERSED given in lab by Rip Herr RN in Right Forearm via Peripheral IV. FENTANYL 12/30/2016 9:50:36 AM 50 mcg Rip Herr 50 mcg FENTANYL given in lab by Rip Herr RN in Right Forearm via Peripheral IV. 1% XYLOCAINE 12/30/2016 9:50:51 AM 20 mL Robert Allan 20 mL 1% XYLOCAINE given in lab by Robert Allan in Right Groin via Subcutaneous. HEPARIN 12/30/2016 9:57:36 AM 6400 units Robert Allan 6400 units HEPARIN given in lab by Robert Allan in Right Forearm via Peripheral IV. HEPARIN 12/30/2016 10:26:52 AM 2000 units Robert Allan 2000 units HEPARIN given in lab by Robert Allan in Right Forearm via Peripheral IV. HEPARIN 12/30/2016 10:36:29 AM 2000 units Robert Allan 2000 units HEPARIN given in lab by Robert Allan in Right Forearm via Peripheral IV. VERSED 12/30/2016 10:37:18 AM 0.5 mg Rip Herr 0.5 mg VERSED given in lab by Rip Herr RN in Right Forearm via Peripheral IV. HEPARIN 12/30/2016 11:15:44 AM 2000 units Rip Herr 2000 units HEPARIN given in lab by Rip Herr, GIANCARLO in Right Forearm via Peripheral IV. NTG (IC) 12/30/2016 11:27:26 AM 200 mcg Robert Allan 200 mcg NTG (IC) given in lab by Robert Allan via Intra-coronary. Medication (Drip) Medication Time Given Dosage/Unit Concentration/Unit Diluent (ml) Solution IV Solutions 12/30/2016 9:21:43 AM 0 mL (IV) 500 NaCl .9 IV Solutions given in lab by Rip Herr, GIANCARLO in Right Forearm via Peripheral IV. Pump/Drip Flow = 100 ml/hr using NaCl .9. Initial Case Assessment Cardiovascular HR Rhythm NIBP Chest Pain 62 reg 152/79 0 Edema Present Skin color Skin None Normal Warm Dry Circulatory - Right Pulses Dorsalis Pedis Femoral 2 2 Scale (0,1,2,3,4,d) Circulatory - Left Pulses Dorsalis Pedis Femoral 2 2 Scale (0,1,2,3,4,d) Circulatory - Lower Extremities Color Lower Right Color Lower Left Normal Normal Neurological State Oriented to time-place- Alert Moves all extremities person Respiration - General Respiration Rate SpO2 (%) (B/min) 11 96 Chronological Log Time Study Chronological Log 9:21:28 Patient arrived via Bed. 9:21:28 Patient Name, D.O.B, / Armband Verified By R.N. 9:21:29 Consent signed by the physician and the patient and verified by the [facility] staff. 9:21:30 Pre-op and post- op instructions given; patient acknowledges understanding of instructions. 9:21:33 Verbal Stimulation=2 Physical Stimulation=2 Airway=2 Respiration=2 TOTAL=8. (0=absent, 1=li mited, 2=present) 9:21:36 Patient has been NPO for More than 6Hrs. 9:21:37 Skin Breakdown none per pt 9:21:38 Patient Warmer Placed on the Table. 9:21:40 Catie Prominences Protected 9:21:42 A # 20 IV was noted in the Forearm (right). Grade = 0 IV Solutions given in lab by Rip Herr, GIANCARLO in Right Forearm via Peripheral IV. Pump/Drip F low = 100 ml/hr using :43 NaCl .9. 9:21:43 History and physical on the chart or being dictated. Assessment: Initial Case, HR=62 BPM, Rhythm=reg, JOYU=968/79 mmhg, Chest Pain=0, Edema=None, [place]=Normal, Skin = Warm, Dry Right Pulses: Braden Ped=2, Femoral=2 Left Pulses: Braden Ped=2, Femoral=2 9:21:45 Lower Right Extremities: Color=Normal Lower Left Extremities: Color=Normal Neurological: State=Alert, Ox3, FAGAN Respiration: Resp=11 B/min, SpO2=96 % Vitals capture started with the following parameters, Patient=Adult, Interval=5 min, Initial Pr sqqaan=443 mmHg, 9:31:11 Deflation Rate=5 mmHg, Cuff placed on Right Arm 9:31:50 HR=59 bpm, OCXL=539/79 mmhg, SpO2=94.0 %, Resp=15 B/min, Pain=0, Peggy=10, Casas=2 9:34:21 HR=61 bpm, QXMR=216/83 mmhg, SpO2=94.0 %, Resp=16 B/min, Pain=0, Peggy=10, Casas=2 9:36:33 HR=66 bpm, MJXX=306/84 mmhg, SpO2=95.0 %, Resp=7 B/min, Pain=0, Peggy=10, Casas=2 9:37:37 Bilateral groins prepped with 2% chlorhexidine, and with a 3 min. waiting time. 9:37:50 HR=65 bpm, ETMG=071/84 mmhg, SpO2=96.0 %, Resp=0 B/min, Pain=0, Peggy=10, Casas=2 9:39:53 HR=61 bpm, CDZA=764/79 mmhg, SpO2=95.0 %, Resp=12 B/min, Pain=0, Peggy=10, Casas=2 9:41:43 Reference ECG taken 9:41:47 Pressure channel 1 zeroed. 9:41:52 HR=61 bpm, HEVD=854/80 mmhg, SpO2=94.0 %, Resp=15 B/min, Pain=0, Peggy=10, Casas=2 9:43:51 HR=62 bpm, AQMT=712/78 mmhg, SpO2=95.0 %, Resp=17 B/min, Pain=0, Peggy=10, Casas=2 9:45:50 HR=57 bpm, KHEQ=622/77 mmhg, SpO2=97.0 %, Resp=14 B/min, Pain=0, Peggy=10, Casas=2 9:47:44 HR=62 bpm, DEGK=576/79 mmhg, SpO2=95.0 %, Resp=18 B/min, Pain=0, Peggy=10, Casas=2 Time Out. Correct patient, correct procedure,correct physician, power injector not loaded with contrast with surgical 9:49:03 team present. Time Out Concurred by , individual staff in procedure 9:49:23 Case Start 9:49:29 1 mg VERSED given in lab by Rip Herr, GIANCARLO in Right Forearm via Peripheral IV. 9:50:30 HR=59 bpm, MGBA=509/79 mmhg, SpO2=96.0 %, Resp=16 B/min, Pain=0, Peggy=10, Casas=2 9:50:36 50 mcg FENTANYL given in lab by Rip Herr, GIANCARLO in Right Forearm via Peripheral IV. 9:50:51 20 mL 1% XYLOCAINE given in lab by Robert Allan in Right Groin via Subcutaneous. 9:51:50 HR=58 bpm, TMKX=859/78 mmhg, SpO2=93.0 %, Resp=10 B/min, Pain=0, Peggy=10, Casas=2 9:53:25 Access site was Right Femoral Artery. 9:53:32 A INTRODUCER SET, MICROPUNCTURE FR 5 was advanced into the Fem Art (right) using the Percuta neous technique. 9:53:49 HR=50 bpm, NPZZ=409/75 mmhg, SpO2=93.0 %, Resp=13 B/min, Pain=0, Peggy=10, Casas=2 9:53:56 A sheath was exchanged in the Fem Art (right). This was necessary in order to accomodate a l arger catheter. 9:55:50 HR=51 bpm, BFVK=325/74 mmhg, SpO2=94.0 %, Resp=11 B/min, Pain=0, Peggy=10, Casas=2 9:57:20 An injection in the Fem Art (right) was made through the SHEATH, FR6 TERUMO (10CM) FR 6. 9:57:36 6400 units HEPARIN given in lab by Robert Allan in Right Forearm via Peripheral IV. 9:57:49 HR=54 bpm, SOJS=401/75 mmhg, SpO2=93.0 %, Resp=9 B/min, Pain=0, Peggy=10, Casas=2 9:57:50 A AR 2 GUIDE CATHETER FR 6 was advanced over a wire. OMNIPAQUE, 350 MG, 150ML 150ML was used for injections. Recorded Pressure: Ao, HR=54, Condition=Condition 1 9:59:10 (Aorta) Ao 140/58/88 9:59:49 HR=54 bpm, KLSK=217/73 mmhg, SpO2=92.0 %, Resp=14 B/min, Pain=0, Peggy=10, Casas=2 Recorded Pressure: LV, HR=56, Condition=Condition 1 10:00:08 (Left Ventricle) LV 141/6/15 Recorded Pressure: LV, Ao, HR=55, Condition=Condition 1 10:00:17 (Left Ventricle) LV 145/8/18, (Aorta) Ao 142/59/89 10:01:48 HR=56 bpm, QOQK=207/68 mmhg, SpO2=93.0 %, Resp=19 B/min, Pain=0, Peggy=10, Casas=2 After removing the current catheter a JR 4.0 GUIDE CATHETER FR 6 was advanced over a WIRE, 3MMJ .035 180CM 10:02:04 180CM. 10:03:49 HR=55 bpm, GIHP=468/73 mmhg, SpO2=90.0 %, Resp=11 B/min, Pain=0, Peggy=10, Casas=2 10:05:50 HR=55 bpm, UEEC=361/73 mmhg, SpO2=90.0 %, Resp=12 B/min, Pain=0, Peggy=10, Casas=2 10:07:49 HR=58 bpm, GTWZ=004/76 mmhg, SpO2=93.0 %, Resp=9 B/min, Pain=0, Peggy=10, Casas=2 After removing the current catheter a JL 4.0 INFINITI CATHETER FR 6 was advanced over a WIRE, 3 MMJ .035 180CM 10:09:18 180CM. 10:10:24 HR=59 bpm, CBRJ=629/75 mmhg, SpO2=96.0 %, Resp=12 B/min, Pain=0, Peggy=10, Casas=2 10:11:54 HR=61 bpm, AUBV=983/78 mmhg, SpO2=93.0 %, Resp=16 B/min, Pain=0, Peggy=10, Casas=2 10:14:36 HR=62 bpm, XFYL=028/84 mmhg, SpO2=94.0 %, Resp=17 B/min, Pain=0, Peggy=10, Casas=2 10:15:56 HR=63 bpm, IERM=496/75 mmhg, SpO2=94.0 %, Resp=9 B/min, Pain=0, Peggy=10, Casas=2 10:17:55 HR=56 bpm, ALNR=369/77 mmhg, SpO2=95.0 %, Resp=6 B/min, Pain=0, Peggy=10, Casas=2 10:20:39 HR=63 bpm, IOAJ=739/82 mmhg, SpO2=94.0 %, Resp=11 B/min, Pain=0, Peggy=10, Casas=2 After removing the current catheter a JR 4.0 GUIDE CATHETER FR 6 was advanced over a WIRE, 3MMJ .035 180CM 10:21:05 180CM. 10:21:35 Activated Clotting Time Drawn 10:21:52 HR=60 bpm, ZRJA=558/81 mmhg, SpO2=95.0 %, Resp=9 B/min, Pain=0, Peggy=10, Casas=2 10:23:55 HR=62 bpm, WYPU=339/77 mmhg, SpO2=95.0 %, Resp=15 B/min, Pain=0, Peggy=10, Casas=2 10:24:43 A WIRE, BALANCE MIDDLEWEIGHT 300CM 300CM was inserted via Fem Art (right). 10:25:56 HR=61 bpm, UCVM=689/79 mmhg, SpO2=93.0 %, Resp=14 B/min, Pain=0, Peggy=10, Casas=2 10:26:03 ACT (Normal Range 90-180) = 235 10:26:52 2000 units HEPARIN given in lab by Robert Allan in Right Forearm via Peripheral IV. 10:27:57 HR=63 bpm, ICDD=629/75 mmhg, SpO2=90.0 %, Resp=12 B/min, Pain=0, Peggy=10, Casas=2 10:29:58 HR=63 bpm, HTCN=824/77 mmhg, SpO2=91.0 %, Resp=9 B/min, Pain=0, Peggy=10, Casas=2 A BALLOON, 1.5 X 6MM SPRINTER 6MM was inserted over WIRE, BALANCE MIDDLEWEIGHT 300CM 300CM via the Fem 10:30:09 Art (right). 10:31:57 HR=67 bpm, FVVI=148/81 mmhg, SpO2=92.0 %, Resp=9 B/min, Pain=0, Peggy=10, Casas=2 10:33:57 HR=63 bpm, ZSRG=328/79 mmhg, SpO2=94.0 %, Resp=22 B/min, Pain=0, Peggy=10, Casas=2 10:34:43 Balloon Removed. 10:34:50 Wire removed 10:34:55 A WIRE, ASAEthos [employer] FIELDER XT 300CM was inserted via Fem Art (right). 10:35:54 HR=67 bpm, EQLJ=958/81 mmhg, SpO2=93.0 %, Resp=12 B/min, Pain=0, Peggy=10, Casas=2 10:36:23 A BALLOON, 1.5 X 6MM SPRINTER 6MM was inserted over WIRE, ASAHI FIELDER XT 300CM via the Fe m Art (right). 10:36:29 2000 units HEPARIN given in lab by Robert Allan in Right Forearm via Peripheral IV. 10:37:18 0.5 mg VERSED given in lab by Rip Herr RN in Right Forearm via Peripheral IV. 10:37:57 HR=68 bpm, KLJN=648/80 mmhg, SpO2=97.0 %, Resp=19 B/min, Pain=0, Peggy=10, Casas=2 10:40:00 HR=66 bpm, BVLW=757/81 mmhg, SpO2=89.0 %, Resp=9 B/min, Pain=0, Peggy=10, Casas=2 10:42:01 HR=71 bpm, KGWW=465/80 mmhg, SpO2=94.0 %, Resp=17 B/min, Pain=0, Peggy=10, Casas=2 10:42:36 Wire removed 10:42:47 A WIRE, [employer] 200 300CM 300CM was inserted via Fem Art (right). 10:44:00 HR=67 bpm, HNWM=127/81 mmhg, SpO2=93.0 %, Resp=11 B/min, Pain=0, Peggy=10, Casas=2 10:46:00 HR=69 bpm, MHKC=427/83 mmhg, SpO2=95.0 %, Resp=14 B/min, Pain=0, Peggy=10, Casas=2 10:47:57 HR=69 bpm, GFBU=909/97 mmhg, SpO2=95.0 %, Resp=14 B/min, Casas=2 10:50:47 HR=68 bpm, ATDB=228/90 mmhg, SpO2=94.0 %, Resp=24 B/min, Casas=2 10:52:03 HR=75 bpm, GZZH=661/105 mmhg, SpO2=94.0 %, Resp=18 B/min, Casas=2 10:54:10 HR=60 bpm, UUJX=092/78 mmhg, SpO2=91.0 %, Resp=16 B/min, Casas=2 10:56:07 HR=62 bpm, LRJZ=373/79 mmhg, SpO2=90.0 %, Resp=14 B/min, Casas=2 10:56:17 The previous wire was exchanged for a WIRE, ASAHI GRANDSLAM 300CM 300CM. 10:58:03 HR=61 bpm, PMUM=336/79 mmhg, SpO2=95.0 %, Resp=13 B/min, Casas=2 A BALLOON, 1.5 X 6MM SPRINTER 6MM over a WIRE, ASAHI GRANDSLAM 300CM 300CM in the RCA Dist was inflated 10:59:56 using a 30 YAHIR INDEFLATOR at 12 yahir for 30 sec. 10:59:58 HR=61 bpm, THFB=256/79 mmhg, SpO2=91.0 %, Resp=12 B/min, Casas=2 11:01:17 Balloon Removed. 11:01:19 ACT (Normal Range 90-180) = 378 11:01:59 HR=63 bpm, JQAM=792/81 mmhg, SpO2=92.0 %, Resp=14 B/min, Casas=2 A BALLOON, 2.0 8MM EMERGE MR 2.0 8MM was inserted over WIRE, ASAHI GRANDSLAM 300CM 300CM via th e RCA 11:03:51 Dist. A BALLOON, 2.0 8MM EMERGE MR 2.0 8MM over a WIRE, ASAHI GRANDSLAM 300CM 300CM in the RCA Dist w as 11:04:13 inflated using a 30 YAHIR INDEFLATOR at ~YAHIR~ yahir for ~SECONDS~ sec. 11:04:41 HR=60 bpm, GIQN=704/77 mmhg, SpO2=95.0 %, Resp=15 B/min, Casas=2 11:06:01 HR=62 bpm, YYGD=843/77 mmhg, SpO2=94.0 %, Resp=11 B/min, Casas=2 A BALLOON, 2.0 8MM EMERGE MR 2.0 8MM over a WIRE, ASAHI GRANDSLAM 300CM 300CM in the RCA Dist w as 11:06:42 inflated using a 30 YAHIR INDEFLATOR at 12 yahir for 30 sec. 11:08:01 HR=63 bpm, CAMU=087/74 mmhg, SpO2=93.0 %, Resp=15 B/min, Casas=2 A BALLOON, 2.0 8MM EMERGE MR 2.0 8MM over a WIRE, ASAHI GRANDSLAM 300CM 300CM in the RCA Dist w as 11:08:07 inflated using a 30 YAHIR INDEFLATOR at 12 yahir for 30 sec. A BALLOON, 2.0 8MM EMERGE MR 2.0 8MM over a WIRE, ASAHI GRANDSLAM 300CM 300CM in the RCA Dist w as :08:17 inflated using a 30 YAHIR INDEFLATOR at 12 yahir for 30 sec. 11:08:24 Balloon Removed. A STENT, 2.25 14 RESOLUTE INTEGRITY RX 2.25 14 was advanced through a JR 4.0 GUIDE CATHETER FR 6 over a 11:09:56 WIRE, ASAHI GRANDSLAM 300CM 300CM. 11:10:02 HR=63 bpm, GIWH=692/78 mmhg, SpO2=91.0 %, Resp=12 B/min, Casas=2 11:10:10 Activated Clotting Time Drawn 11:12:01 HR=61 bpm, XUAV=399/78 mmhg, SpO2=94.0 %, Resp=13 B/min, Casas=2 11:14:00 HR=60 bpm, ONUL=156/81 mmhg, SpO2=92.0 %, Resp=19 B/min, Casas=2 11:15:00 ACT (Normal Range 90-180) = 270 11:15:44 2000 units HEPARIN given in lab by Rip Herr RN in Right Forearm via Peripheral IV. 11:16:03 HR=59 bpm, XQJC=690/76 mmhg, SpO2=94.0 %, Resp=24 B/min, Casas=2 A STENT, 2.25 14 RESOLUTE INTEGRITY RX 2.25 14 was deployed using a 30 YAHIR INDEFLATOR at 5 atmo spheres for 11:17:11 30 seconds in the RCA Dist. 11:18:02 HR=64 bpm, JPRI=967/81 mmhg, SpO2=90.0 %, Resp=14 B/min, Pain=0, Peggy=10, Casas=2 11:19:16 Delivery device removed 11:20:04 HR=68 bpm, MKVW=463/77 mmhg, SpO2=92.0 %, Resp=19 B/min, Pain=0, Peggy=10, Casas=2 11:22:01 HR=72 bpm, MGCG=427/87 mmhg, SpO2=95.0 %, Resp=12 B/min, Pain=0, Peggy=10, Casas=2 A BALLOON, 2.25 X 8MM NC EUPHORA 8MM was inserted over WIRE, ASAHI GRANDSLAM 300CM 300CM via th e Fem 11:23:53 Art (right). 11:24:12 HR=69 bpm, KXYB=485/57 mmhg, SpO2=93.0 %, Resp=19 B/min, Pain=0, Peggy=10, Casas=2 A BALLOON, 2.25 X 8MM NC EUPHORA 8MM over a WIRE, ASAHI GRANDSLAM 300CM 300CM in the RCA Dist w as 11:24:52 inflated using a 30 YAHIR INDEFLATOR at 12 yahir for 20 sec. A BALLOON, 2.25 X 8MM NC EUPHORA 8MM over a WIRE, ASAHI GRANDSLAM 300CM 300CM in the RCA Dist w as 11:26:00 inflated using a 30 YAHIR INDEFLATOR at 16 yahir for 25 sec. 11:26:12 Balloon Removed 11:26:36 HR=71 bpm, OWRZ=796/83 mmhg, SpO2=94.0 %, Resp=11 B/min, Pain=0, Peggy=10, Casas=2 11:27:26 200 mcg NTG (IC) given in lab by Robert Allan via Intra-coronary. 11:28:06 HR=72 bpm, WCXT=511/68 mmhg, SpO2=95.0 %, Resp=7 B/min, Pain=0, Peggy=10, Casas=2 11:30:07 HR=67 bpm, ADZO=876/80 mmhg, SpO2=93.0 %, Resp=9 B/min, Pain=0, Peggy=10, Casas=2 11:31:26 Wire removed 11:31:35 Catheter was removed 11:31:59 HR=70 bpm, RZKP=049/78 mmhg, SpO2=94.0 %, Resp=19 B/min, Pain=0, Peggy=10, Casas=2 11:32:33 Catheter(s) removed without difficulty 11:32:40 Case End 11:32:44 No case complications noted. 11:32:45 Cine recording checked. 11:32:51 Bedside Report will be given. 11:32:53 Implantable Device card placed in patient's chart. 11:32:56 Contrast Scanned 11:33:18 A Left Heart Cath was performed. 11:33:26 DOCU called. Spoke to Jonah. Advised a-line needed. 11:33:53 In the Fem Art (right) the SHEATH, FR6 TERUMO (10CM) FR [address] by Rod Salazar RCIS(BS). 11:34:45 HR=69 bpm, KFGB=257/88 mmhg, SpO2=96.0 %, Resp=39 B/min, Pain=0, Peggy=10, Casas=2 11:36:01 HR=68 bpm, YWMQ=799/78 mmhg, SpO2=90.0 %, Resp=16 B/min, Pain=0, Peggy=10, Casas=2 11:36:12 Sterile dressing applied to site 11:38:04 HR=63 bpm, VVLY=386/80 mmhg, SpO2=93.0 %, Resp=9 B/min, Pain=0, Peggy=10, Casas=2 11:40:03 HR=61 bpm, CESE=231/77 mmhg, SpO2=96.0 %, Resp=22 B/min, Pain=0, Peggy=10, Casas=2 11:40:58 Vitals capture stopped. 11:43:38 Patient moved to stretcher End Study - Contrast Media Used In Study Contrast Total Opened (mL) Total Used (mL) Total Wasted (mL) Omnipaque 150 150 0 End Study - Maximum Contrast Load Max Contrast Load (mL) 654.2 End Study - Radiation Exposure Fluoro Time (minutes) 29.3 End Study - Patient Disposition Complications Transferred To Interventional Outcome No [facility] Holding successful
[2016-12-30] MEDS ORDERED: ATROPINE SULFATE 1 MG/ML VIAL IV PRN (12:00)
[2016-12-30] MEDS ORDERED: ONDANSETRON HCL 4 MG/2 ML VIAL IV PRN (12:00)
[2016-12-30] MEDS ORDERED: ACETAMINOPHEN 325 MG TAB PO PRN (12:00)
[2016-12-30] MEDS ORDERED: MORPHINE SULFATE 4 MG/ML INJ IV PUSH PRN (12:00)
[2016-12-30] MEDS ORDERED: SODIUM CHLOR 0.9% 250 ML INJ 250 ML IV PRN (12:00)
[2016-12-30] MEDS ORDERED: MISC INFORMATION XX ONE (12:00)
[2016-12-30] MEDS ORDERED: oxyCODONE/ACETAMINOPHEN 5 MG/325 MG TAB PO PRN (12:00)
[2016-12-30] MEDS ORDERED: oxyCODONE/ACETAMINOPHEN 10 MG/325 MG TAB PO PRN (12:00)
[2016-12-30] MEDS: hydrOXYzine HCL 25 MG TAB PO SCH ×3 (16:13→21:00)
[2016-12-30] MEDS: GABAPENTIN 300 MG CAP PO SCH ×2 (16:13→19:07)
--- NOTE | 2016-12-30 20:42 | MH ---
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 HISTORY OF PRESENT ILLNESS Susana Hernandez is a pleasant 61-year-old female whom I see in the office who originally presented to the hospital last month 14 days after having chest pain and was found to have a recent STEMI. Because she was hemodynamically and clinically stable at that time it was felt that we would attempt to treat this medically. I saw her in the office after this and she was noted to have chest pain and shortness of breath with minimal activity such as vacuuming. Because of this she was recommended a pharmacologic nuclear stress test which showed inferior infarction with linh-infarct ischemia. She underwent a cardiac catheterization (December 30, 2016) which showed a subtotal/MULTI NEEDLE MACHINE OPERATOR of her RCA for which she had placement of a Resolute drug-eluting stent (2.25 x 14). Postprocedure she is currently hemodynamically stable without chest pain or shortness of breath. PAST MEDICAL HISTORY 1. Coronary artery disease with recent delayed presentation after a STEMI (November 27, 2016). 2. Diabetes. 3. Hypertension. PAST SURGICAL HISTORY 4. Cardiac catheterization (December 30, 2016) left main 10% disease, LAD multiple lesions of moderate 30-40% disease, left circumflex 20% disease, RCA 99% subtotally occluded distally status post Resolute drug-eluting stent (2.25 x 14). 5. Carpal tunnel surgery. 6. Hemorrhoidectomy surgery. ALLERGIES CEPHALEXIN. MEDICATIONS 1. Aspirin 81 milligrams daily. 2. Plavix 75 milligrams daily. 3. Norvasc 10 milligrams daily. 4. Gabapentin 300 milligrams twice a day. 5. Hydrochlorothiazide 25 milligrams daily. 6. Hydroxyzine 25 milligrams four times a day. 7. Lipitor 80 milligrams at bedtime. 8. Lisinopril 40 milligrams daily. 9. Metformin 850 milligrams twice a day. 10. Novolin 70/30 b.i.d. 11. Omeprazole 20 milligrams daily. FAMILY HISTORY Positive for coronary artery disease. Denies sudden cardiac within the family. SOCIAL HISTORY The patient previously smoked up until October 17, 2016. REVIEW OF SYSTEMS 14-systems were reviewed including osteopathic, pertinent positives and negatives above otherwise negative. PHYSICAL EXAMINATION VITAL SIGNS: Temperature 98.4, heart rate 53, blood pressure 157/73, respirations 18, pulse ox 98% on room air. GENERAL: In general, the patient appears well in no acute distress, alert, awake and oriented x3. HEENT: Extraocular muscles intact. Mucous membranes moist. NECK: Neck is supple. No JVD at 45 degrees. No carotid bruits heard bilaterally. Carotid upstroke is brisk in nature. HEART: Regular rate and rhythm. Positive first and second heart sounds with a 1/6 holosystolic murmur noted at the apex. LUNGS: Clear to auscultation bilaterally. No wheezes, rales or rhonchi. ABDOMEN: Soft, nontender, nondistended. No organomegaly noted. EXTREMITIES: Show no clubbing, cyanosis or edema. Femoral and distal pulses intact bilaterally. NEUROLOGICALLY: No focal deficits. SKIN: Warm, dry and intact. OSTEOPATHIC: No kyphoscoliosis, lordosis or paraspinal tender points. LABORATORY FINDINGS Hemoglobin 13.2, hematocrit 39.8, platelets 254. Potassium 3.6, BUN 12, creatinine 0.76. CARDIOLOGY STUDIES Electrocardiogram (December 30, 2016 at 09:05) sinus bradycardia, inferior infarction age indeterminate. IMPRESSION 1. Delayed presentation of inferior STEMI (November 27, 2016). 2. Significant chest pain and shortness of breath, [place] anginal score 3. 3. 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 4. Diabetes mellitus. 5. Hypertension. RECOMMENDATIONS 1. Ms. Cornelius grajead will be watched overnight and if stable in the morning discharged home. 2. We will attempt to treat her ostial PDA as best as we can medically as this would be a very complex intervention as it is subtotally occluded. 3. She will continue on aspirin and Plavix as well as statins and ROSY inhibitor therapy. 4. Beta blockers will be held as her heart rates run in the 50s. 5. Further recommendations will be made based on the hospital course. Thank you for allowing me to see Susana Shields. If there are any questions please do not hesitate to call. Robert MONIQUE/ITZEL /8:13 PM /8:26 PM
--- NOTE | 2016-12-30 20:48 | MA ---
cc: ROBERT MACK DO DATE: 12/30/2016 PROCEDURE Left heart catheterization, coronary angiogram, SPRING MANUFACTURING SET UP TECHNICIAN of the RCA status post Resolute drug-eluting stent (2.25 x 14), complex case, moderate sedation, 145 minutes. PREPROCEDURE DIAGNOSIS Recent inferior STEMI, chest pain, shortness of breath with minimal activity (Nash anginal score 3), abnormal stress test showing inferior infarction with linh-infarct ischemia (intermediate risk). POSTPROCEDURE DIAGNOSIS Chest pain, shortness of breath with minimal activity (Nash anginal score 3), abnormal stress test (intermediate risk), SPRING MANUFACTURING SET UP TECHNICIAN of RCA status post Resolute drug-eluting stent (2.25 x 14). MEDICATIONS: 1. Versed 1.5 milligrams. 2. Fentanyl 50 micrograms. 3. Heparin 10,400 units. 4. Nitro 200 micrograms, intracoronary. CONTRAST USED 150 cc FLUOROSCOPY 29.3 minutes. MODERATE SEDATION 145 minutes. ESTIMATED BLOOD LOSS: 20 cc PROCEDURAL SUMMARY Susana Shields is a pleasant 61 year-old female whom I see in the office. She originally presented 14 days after STEMI on her last hospital visit. At that time intervention of her RCA was not done as she appeared clinically stable. She was started on antianginal medications and seen in the office. She states she has had significant chest pain and shortness of breath with minimal activity around the house such as vacuuming. She underwent a pharmacological nuclear stress test which showed inferior infarction with a moderate area of ischemia (intermediate risk). Because of this, she was recommended cardiac catheterization with a plan for intervention on her RCA. The risks, benefits and alternatives were explained to her and she consented as such. DETAILS OF PROCEDURE: She was brought to the lab and prepped in the usual sterile fashion. The right femoral artery was accessed using a modified Seldinger technique and placement of a 6 Dominican sheath. The patient was given heparin as an anticoagulant. An AR2 guide was advanced over the J-wire to the ascending aorta and engaged into the right coronary artery. During this, the guide was set too deep into the RCA with dampening pressure. AR2 was then exchanged for a JR4 guide. Angiogram shows overall small vessel distally with some competitive flow noted in the PDA. Because of this, the JR4 guide was exchanged for a JL4 diagnostic catheter for angiogram of the left coronary artery which shows minimal at best collaterals to the PDA. Because of her significant chest pain and shortness of breath, it was felt reasonable to attempt the SPRING MANUFACTURING SET UP TECHNICIAN of the RCA. The JR4 guide was then engaged into the right coronary artery. A BMW wire was attempted to advance but was unable to cross the lesion. An over the wire balloon (1.5 x 6) was then advanced down towards the lesion for better support. The BMW wire was then removed and an XT wire was attempted to cross the lesion which was unsuccessful. A assistant finance director 200 was then used and crossed the lesion freely. When it was felt that the wire was definitely intraluminal the balloon was taken distally and the wire was removed. Contrast mixed with saline was used through the over the wire balloon to make sure that we were intraluminal. A long [place] wire was then placed distally. The over the wire balloon (1.5 x 6) was then inflated over the lesion. This was exchanged out for a compliant balloon (2 x 8) which was then inflated over the lesion. A Resolute drug-eluting stent (2.25 x 8) was then placed and inflated over the lesion at nominal pressure. A noncompliant balloon (2.25 x 8) was then used to post dilate the stent. The patient was given intracoronary nitroglycerin and post angiography shots show a well opposed stent with no dissection or preparation. Of note distally the vessel had plumped up and shows that it is a larger size. There is an ostial PDA lesion which overall appears to be subtotally occluded also. It was felt at this time that we will attempt to treat this medically as best as possible as overall there is KEANU-3 flow and PCI would be complex again in an overall small vessel. BMW wire was removed. The JR4 guide was removed over a J-wire. Femoral line was sutured in place with a plan to remove ACTs were appropriate. The patient left the prosthetic lab technician cardiovascularly stable with no chest pain. FINDINGS Left main: normal size vessel with 10% disease. It bifurcates into an LAD and circumflex. LAD: small to moderate size vessel with multiple lesions of 30%. Left circumflex: moderate size vessel with no significant disease. RCA: moderate size vessel with multiple moderate lesions throughout. Distal portion has a subtotal occlusion SPRING MANUFACTURING SET UP TECHNICIAN. Status post Resolute drug-eluting stent (2.25 x 14). Post stenting PDA is noted to have an ostial subtotal occlusion which we will try to treat medically. IMPRESSION 1. Recent inferior STEMI. 2. Continual chest pain and shortness of breath with minimal activity (Nash anginal score 3) 3. Abnormal pharmacologic nuclear stress test showing inferior infarction with a moderate area of ischemia (intermediate risk) 4. Status post Resolute drug-eluting stent (2.25 x 14) to the CT of the distal RCA. RECOMMENDATIONS 1. Ms. Shields underwent PCI of her distal RCA and we will attempt to treat her PDA medically as overall the intervention would be difficult and it is a small vessel. 2. She will continue on aspirin and Plavix. 3. She will get gentle hydration overnight as she received 150 cc of contrast. 4. She will be observed overnight and if stable in the morning discharged home for followup with myself. 5. She will not be placed on a beta frida as her heart rates have consistently been in the 50s outpatient. 6. If further chest pain, consideration could be made for intervention on her PDA although overall this is a relatively small vessel and appears subtotally occluded. Thank you for allowing me to see Susana Shields. For any questions, please to not hesitate to call. Robert Mack DO AKIN/ANALIA /7:43 PM /8:13 PM
[2016-12-30] MEDS ORDERED: ATORVASTATIN 80 MG TAB PO SCH (21:00)
[2016-12-30] MEDS: INSULIN HUMAN NPH/R 70/30 1,000 UNITS/10 ML VIAL SQ SCH (21:21)
[2016-12-31] VITALS (13 sets, daily range): BP systolic 130–161; BP diastolic 66–79; PULSE 45–61; RESP 16–18; TEMP 97–98.1; O2SAT 96–99
[2016-12-31 06:41] LABS: BASOPHIL # 0.1 TH/MM3 (0-0.2); BASOPHIL % 0.6 % (0.0-2.0); EOSINOPHIL # 0.1 TH/MM3 (0-0.4); EOSINOPHIL % 1.7 % (0.0-4.0); HEMATOCRIT 39.3 % (35.0-46.0); HEMO FLAGS DIFF FINAL; LYMPH % 21.7 % (9.0-44.0); LYMPHOCYTE # 1.9 TH/MM3 (1.0-4.8); MEAN CELL VOLUME 89.6 FL (80.0-100.0); MEAN CORPUSCULAR HEMOGLOBIN 30.3 PG (27.0-34.0); MEAN CORPUSCULAR HGB CONC 33.8 % (32.0-36.0); PLATELET COUNT 245 TH/MM3 (150-450); RED BLOOD COUNT 4.38 MIL/MM3 (4.00-5.30); RED CELL DISTRIBUTION WIDTH 12.9 % (11.6-17.2); WHITE BLOOD COUNT 8.9 TH/MM3 (4.0-11.0)
[2016-12-31 07:00] LABS: POTASSIUM 3.8 MEQ/L (3.5-5.1)
[2016-12-31] MEDS: GABAPENTIN 300 MG CAP PO SCH (08:23)
[2016-12-31] MEDS: hydrOXYzine HCL 25 MG TAB PO SCH (08:24)
[2016-12-31] MEDS: INSULIN HUMAN NPH/R 70/30 1,000 UNITS/10 ML VIAL SQ SCH (08:29)
[2016-12-31] MEDS ORDERED: LISINOPRIL 20 MG TAB PO SCH (09:00)
[2016-12-31] MEDS ORDERED: ASPIRIN 81 MG CHEW TAB CHEW SCH (09:00)
[2016-12-31] MEDS ORDERED: CLOPIDOGREL 75 MG TAB PO SCH (09:00)
[2016-12-31] MEDS ORDERED: PANTOPRAZOLE SOD 20 MG DELAYED RELEASE TAB PO SCH (09:00)
[2016-12-31] MEDS ORDERED: METF500T PO (11:31)
--- NOTE | 2016-12-31 11:33 | HHI.DS ---
Discharge Summary Admission Date 12/30/16 Discharge Date: Dec 31, 2016 Admitting Diagnosis CP/SOB (FERNIE III) s/p MEDIA SERVICES COORDINATOR RCA with Resolute CELSO (1) Hypertension Diagnosis: Secondary ICD Codes: I10 - Essential (primary) hypertension Status: Acute (2) CAD (coronary artery disease) Diagnosis: Principal ICD Codes: I25.10 - Atherosclerotic heart disease of [place] coronary artery without angina pectoris Status: Acute (3) Chest pain Diagnosis: Principal ICD Codes: R07.9 - Chest pain, unspecified Status: Acute (4) Diabetes Diagnosis: Secondary ICD Codes: E11.9 - Diabetes mellitus Status: Chronic (5) Hyperlipidemia Diagnosis: Secondary ICD Codes: E78.5 - Hyperlipidemia, unspecified Status: Acute Brief History Post-cath MEDIA SERVICES COORDINATOR of RCA s/p Resolute CELSO CBC/BMP: 12/31/16 0618 12/31/16 0618 Significant Findings Laboratory Tests Test 12/30/16 08:25 12/31/16 06:18 Monocytes (%) (Auto) 9.0 % (0.0-8.0) 9.0 % (0.0-8.0) Prothrombin Time 11.7 SEC (9.8-11.6) Random Glucose 143 MG/DL (74-106) 112 MG/DL (74-106) Estimat Glomerular Filtration Rate 78 ML/MIN (>89) 77 ML/MIN (>89) Pt Condition on Discharge: Good Discharge Disposition: Discharge Home Discharge Instructions DIET: Follow Instructions for: Heart Healthy Diet Activities you can perform: See Additionl Instruction Additional Activity Instructio: No lifting more than 10 lbs for 3 days Robert Allan DO Dec 31, 2016 11:33
--- NOTE | 2016-12-31 17:13 | PD.CARD.PN ---
Subjective Subjective Remarks Patient seen this morning Doing well Up and ambulating without complaints No chest pain/SOB Objective Medications Current Medications Sodium Chloride 1,000 ml @ 0 mls/hr Q0M IV ; Start 12/30/16 at 08:15; Stop at 12:44; Status DC Aspirin (Aspirin Chew) 81 mg STK-MED ONCE .ROUTE ; Start 12/30/16 at 08:52; Stop 12/30/16 at 08:53; Status DC Aspirin (Aspirin Chew) 81 mg ONCE ONCE PO Last administered on 12/30/16 08:52 ; Start 12/30/16 at 08:52; Stop 12/30/16 at 09:05; Status DC Heparin Sodium/ Sodium Chloride 1,000 ml @ As Directed STK-MED ONCE .ROUTE Last administered on 12/30/16 09:31; Start 12/30/16 at 09:31; Stop 12/30/16 at 09:32; Status DC Midazolam HCl (Versed Inj) 2 mg STK-MED ONCE .ROUTE Last administered on 09:32; Start 12/30/16 at 09:32; Stop 12/30/16 at 09:33; Status DC Fentanyl Citrate (fentaNYL INJ) 100 mcg STK-MED ONCE .ROUTE Last administered on 12/30/16 09:32; Start 12/30/16 at 09:32; Stop 12/30/16 at 09:33; Status DC Heparin Sodium (Porcine) (Heparin Inj) 10,000 units STK-MED ONCE .ROUTE Last administered on 12/30/16 09:56; Start 12/30/16 at 09:56; Stop 12/30/16 at 09:57 ; Status DC Amlodipine Besylate (Norvasc) 10 mg DAILY PO Last administered on 12/31/16 08: 23; Start 12/31/16 at 09:00; Stop 12/31/16 at 12:55; Status DC Aspirin (Aspirin Chew) 81 mg DAILY CHEW Last administered on 12/31/16 08:23; Start 12/31/16 at 09:00; Stop 12/31/16 at 12:55; Status DC Atorvastatin Calcium (Lipitor) 80 mg HS PO Last administered on 12/30/16 21:18 ; Start 12/30/16 at 21:00; Stop 12/31/16 at 12:55; Status DC Clopidogrel Bisulfate (Plavix) 75 mg DAILY PO Last administered on 12/31/16 08 :23; Start 12/31/16 at 09:00; Stop 12/31/16 at 12:55; Status DC Gabapentin (Neurontin) 300 mg TID PO Last administered on 12/31/16 08:23; Start 12/30/16 at 13:00; Stop 12/31/16 at 12:55; Status DC Hydroxyzine HCl (Atarax) 25 mg QID PO Last administered on 12/30/16 16:13; Start 12/30/16 at 13:00; Stop 12/31/16 at 12:55; Status DC Insulin Human Isoph/Insulin Regular (NovoLIN 70/30 INJ) 60 units BID@0800,2000 SQ Last administered on 12/31/16 08:29; Start 12/30/16 at 20:00; Stop at 12:55; Status DC Lisinopril (Prinivil) 40 mg DAILY PO Last administered on 12/31/16 08:23; Start 12/31/16 at 09:00; Stop 12/31/16 at 12:55; Status DC Pantoprazole Sodium (Protonix) 20 mg DAILY PO Last administered on 12/31/16 08 :23; Start 12/31/16 at 09:00; Stop 12/31/16 at 12:55; Status DC Sodium Chloride 1,000 ml @ 60 mls/hr [id number] IV Last administered on 20:07; Start 12/30/16 at 11:54; Stop 12/30/16 at 23:53; Status DC Acetaminophen (Tylenol) 325 mg Q4H PRN PO PAIN SCALE 1 TO 2; Start 12/30/16 at 12:00; Stop 12/31/16 at 12:55; Status DC Oxycodone/ Acetaminophen (Percocet 5-325 Mg) 1 tab Q4H PRN PO PAIN SCALE 3 TO 5; Start 12/30/16 at 12:00; Stop 12/31/16 at 12:55; Status DC Oxycodone/ Acetaminophen (Percocet 10-325 Mg) 1 tab Q4H PRN PO PAIN SCALE 6 TO 10; Start 12/30/16 at 12:00; Stop 12/31/16 at 12:55; Status DC Morphine Sulfate (Morphine Inj) 2 mg Q30M PRN IV PUSH BREAKTHROUGH PAIN; Start 12/30/16 at 12:00; Stop 12/31/16 at 12:55; Status DC Miscellaneous Information 1 ONCE ONCE XX ; Start 12/30/16 at 12:00; Stop at 12:41; Status DC Atropine Sulfate (Atropine Inj) 0.5 mg UNSCH PRN IV VAGAL REPONSE; Start at 12:00; Stop 12/31/16 at 12:55; Status DC Sodium Chloride 250 ml @ 500 mls/hr UNSCH X1 PRN IV VAGAL REPONSE; Start 12/30 at 12:00; Stop 12/31/16 at 11:59; Status DC Ondansetron HCl (Zofran Inj) 4 mg Q4H PRN IV NAUSEA; Start 12/30/16 at 12:00; Stop 12/31/16 at 12:55; Status DC Iohexol (OMNIPAQUE 350 INJ (Protective Signal Operations Supervisor)) 100 ml STK-MED ONCE OTHER ; Start at 07:43; Stop 12/30/16 at 15:12; Status DC Iohexol (OMNIPAQUE 350 INJ (Protective Signal Operations Supervisor)) 50 ml STK-MED ONCE OTHER ; Start at 07:43; Stop 12/30/16 at 15:12; Status DC Vital Signs / I&O Vital Signs Date Time Temp Pulse Resp B/P (MAP) Pulse Ox O2 Delivery O2 Flow Rate FiO2 12/31/16 11:31 98.0 60 18 161/79 (106) 96 12/31/16 11:00 48 12/31/16 10:08 54 12/31/16 09:00 61 12/31/16 08:00 49 12/31/16 08:00 97.0 49 18 143/73 (96) 99 12/31/16 07:00 45 12/31/16 06:00 49 12/31/16 05:00 48 12/31/16 04:00 48 12/31/16 04:00 98.1 47 16 130/66 (87) 98 12/31/16 03:00 54 12/31/16 02:00 54 12/31/16 01:00 53 12/31/16 00:00 52 12/30/16 23:00 52 12/30/16 23:00 98.1 52 16 142/80 (100) 94 12/30/16 22:00 54 12/30/16 21:00 52 12/30/16 20:00 56 12/30/16 20:00 98.6 54 16 147/70 (95) 94 12/30/16 19:00 60 12/30/16 18:00 50 I/O 12/30/16 12/30/16 12/30/16 12/31/16 12/31/16 12/31/16 07:00 15:00 23:00 07:00 15:00 23:00 Intake Total 461 ml Output Total 2200 ml Balance -1739 ml Intake Oral 461 ml Output Urine Total 2200 ml # Bowel Movements 0 Physical Exam GENERAL: NAD, AAOx3 SKIN: Warm and dry. HEAD: Atraumatic. Normocephalic. EYES: Pupils equal and round. No scleral icterus. No injection or drainage. ENT: No nasal bleeding or discharge. Mucous membranes pink and moist. NECK: Trachea midline. No JVD. CARDIOVASCULAR: Regular rate and rhythm. RESPIRATORY: No accessory muscle use. Clear to auscultation. Breath sounds equal bilaterally. GASTROINTESTINAL: Abdomen soft, non-tender, nondistended. Hepatic and splenic margins not palpable. MUSCULOSKELETAL: Extremities without clubbing, cyanosis, or edema. No obvious deformities. Right femoral no hematoma/bruit, pulses intact distally NEUROLOGICAL: Awake and alert. No obvious cranial nerve deficits. Motor grossly within normal limits. Five out of 5 muscle strength in the arms and legs. Normal speech. PSYCHIATRIC: Appropriate mood and affect; insight and judgment normal. Laboratory Laboratory Tests Test 12/31/16 06:18 White Blood Count 8.9 TH/MM3 Red Blood Count 4.38 MIL/MM3 Hemoglobin 13.3 GM/DL Hematocrit 39.3 % Mean Corpuscular Volume 89.6 FL Mean Corpuscular Hemoglobin 30.3 PG Mean Corpuscular Hemoglobin Concent 33.8 % Red Cell Distribution Width 12.9 % Platelet Count 245 TH/MM3 Mean Platelet Volume 8.7 FL Neutrophils (%) (Auto) 67.0 % Lymphocytes (%) (Auto) 21.7 % Monocytes (%) (Auto) 9.0 % Eosinophils (%) (Auto) 1.7 % Basophils (%) (Auto) 0.6 % Neutrophils # (Auto) 6.0 TH/MM3 Lymphocytes # (Auto) 1.9 TH/MM3 Monocytes # (Auto) 0.8 TH/MM3 Eosinophils # (Auto) 0.1 TH/MM3 Basophils # (Auto) 0.1 TH/MM3 CBC Comment DIFF FINAL Differential Comment Blood Urea Nitrogen 10 MG/DL Creatinine 0.77 MG/DL Random Glucose 112 MG/DL Calcium Level 8.9 MG/DL Sodium Level 139 MEQ/L Potassium Level 3.8 MEQ/L Chloride Level 105 MEQ/L Carbon Dioxide Level 27.0 MEQ/L Anion Gap 7 MEQ/L Estimat Glomerular Filtration Rate 77 ML/MIN Assessment and Plan Problem List: (1) CAD (coronary artery disease) ICD Codes: I25.10 - Atherosclerotic heart disease of [place] coronary artery without angina pectoris Status: Acute (2) Chest pain ICD Codes: R07.9 - Chest pain, unspecified Status: Acute (3) Hyperlipidemia ICD Codes: E78.5 - Hyperlipidemia, unspecified Status: Acute (4) Hypertension ICD Codes: I10 - Essential (primary) hypertension Status: Acute (5) Diabetes ICD Codes: E11.9 - Diabetes mellitus Status: Chronic Assessment and Plan 1) Doing well, plan discharge today 2) Con't ASA/Plavix 3) No BB secondary to low baseline heart rates 4) Follow up in the office 5) >30 mins on discharge 6) Medical management, if further symptoms, consider INSIDE SALES ACCOUNT REPRESENTATIVE of PDA, but difficult intervention Robert Allan DO Dec 31, 2016 17:13
--- NOTE | 2016-12-31 20:18 | EKG ---
Date Performed: 12/30/2016 Time Performed: 09:05:04 PTAGE: 61 years EKG: Sinus bradycardia Inferior infarct - age undetermined Abnormal ECG PREVIOUS TRACING : 11/27/2016 13.54 Compared to prior tracing no significant change DOCTOR: Easton Reyes Interpretating Date/Time 12/31/2016 20:17:58
== END 2016-12-31 12:55 | disposition home or self-care (01) ==
LOC: HCAT 07:42 → HDIC 07:44 → HCIN 17:11 → HCAT 12-31 12:55
PROVIDERS: ATTEND Nuclear Medicine Nuclear Cardiology
DX: I25.119 Atherosclerotic heart disease of native coronary artery with unspecified angina pectoris (principal); I25.82 Chronic total occlusion of coronary artery; I25.2 Old myocardial infarction; E11.9 Type 2 diabetes mellitus without complications; I10 Essential (primary) hypertension; R06.02 Shortness of breath; R94.39 Abnormal result of other cardiovascular function study; Z87.891 Personal history of nicotine dependence; Z79.82 Long term (current) use of aspirin; Z79.84 Long term (current) use of oral hypoglycemic drugs; Z79.4 Long term (current) use of insulin; Z79.01 Long term (current) use of anticoagulants; Z79.899 Other long term (current) drug therapy
CPT/HCPCS: 80048; 82948; 85002; 85025; 85347; 85610; 85730; 92943; 93005; 93454; C1725; C1769; C1874; C1887; C1893; J1644; J1815; J2250; J3010; J7030; Q9967

== ENCOUNTER 2017-05-28 14:39 | Inpatient (IN) | payer OTHER, MEDICARE ==
[2017-05-28] VITALS (7 sets, daily range): BP systolic 165–188; BP diastolic 77–86; PULSE 56–76; RESP 16–18; TEMP 97.8–98.2; O2SAT 97–99
[~2017-05-28] VITALS: Ht 172.7 cm; Wt 96.1 kg
[~2017-05-28 14:39] MED LIST changes: -ATOR1TAB18 PO; +ATOR80TA45 PO; +HYDR-3133 PO; +LISI40TA PO; +METF500T PO
[2017-05-28] MEDS ORDERED: SODIUM CHLORIDE 0.9% FLUSH 10 ML FLUSH IVF PRN (15:15)
--- NOTE | 2017-05-28 15:32 | RADRPT ---
EXAM DATE/TIME: 05/28/2017 15:20 [facility] COMPARISON: CHEST SINGLE AP, November 27, 2016, 14:39. INDICATIONS : Evaluate for palpitations. MEDICAL HISTORY : None. SURGICAL HISTORY : None. ENCOUNTER: Initial ACUITY: 1 day PAIN SCORE: 0/10 LOCATION: Bilateral chest FINDINGS: A single view of the chest demonstrates the lungs to be symmetrically aerated without evidence of mas s, infiltrate or effusion. The cardiomediastinal contours are unremarkable. Osseous structures are intact. CONCLUSION: Normal examination. Lake Williamson MD on May 28, 2017 at 15:30 Board Certified Radiologist. This report was verified electronically.
[2017-05-28 15:54] LABS: AUTOMATED NEUTROPHIL # 5.8 TH/MM3 (1.8-7.7); BASOPHIL % 0.5 % (0.0-2.0); EOSINOPHIL # 0.2 TH/MM3 (0-0.4); EOSINOPHIL % 1.9 % (0.0-4.0); HEMATOCRIT 40.2 % (35.0-46.0); HEMOGLOBIN 13.7 GM/DL (11.6-15.3); LYMPH % 27.1 % (9.0-44.0); LYMPHOCYTE # 2.5 TH/MM3 (1.0-4.8); MEAN CELL VOLUME 87.9 FL (80.0-100.0); MEAN CORPUSCULAR HGB CONC 34.1 % (32.0-36.0); MEAN PLATELET VOLUME 8.7 FL (7.0-11.0); MONO % 8.5 % (0.0-8.0); MONOCYTE # 0.8 TH/MM3 (0-0.9); PLATELET COUNT 314 TH/MM3 (150-450); RED BLOOD COUNT 4.57 MIL/MM3 (4.00-5.30); RED CELL DISTRIBUTION WIDTH 13.2 % (11.6-17.2); WHITE BLOOD COUNT 9.3 TH/MM3 (4.0-11.0)
[2017-05-28 15:58] LABS: INTERNATIONAL NORMALIZED RATIO 1.1 RATIO; PROTHROMBIN TIME - PATIENT 11.1 SEC (9.8-11.6)
--- NOTE | 2017-05-28 15:58 | PD ---
HPI Chief Complaint: Cardiac Complaint Time Seen by Provider: 15:37 Travel History International Travel<30 days: No Contact w/Intl Traveler<30days: No Traveled to known affect area: No History of Present Illness HPI 62yo F presented to the ED from her GP for an abnormal EKG. She states that for the last week every time she walks outside she started having palpitations and chest discomfort that only last for several minutes, with her last episode taking place in her GP office. She reports they are not associated with any other symptoms, but had 4-5 episodes of R low lateral chest pain but she does not know if there is any relation. A previous physician told her that she was just passing kidney stones. She does have a cardiac history of 2 previous MIs in November 2016 with atypical presentations followed by a stent placement in her RCA in [place] [address] Allan in [place]. She also has type 2 diabetes, HTN, and a history of tobacco use with cessation in November 2016. Pt denies any SOB, chest pains, nausea, vomiting, lightheadedness or dizziness. Modifying Factors: None Associated Signs & Symptoms: Palpitations, chest discomfort Risk Factors: Previous MIs PFSH Past Medical History Hx Anticoagulant Therapy: Yes (PLAVIX ) Arthritis: Yes Blood Disorders: No Anxiety: Yes Depression: Yes Heart Rhythm Problems: No Cancer: No Cardiovascular Problems: Yes High Cholesterol: Yes Chest Pain: Yes Congestive Heart Failure: No Diabetes: Yes Patient Takes Glucophage: Yes Diminished Hearing: No Endocrine: Yes Gastrointestinal Disorders: Yes (GERD,REFLUX) GERD: Yes Genitourinary: Yes Hepatitis: No Hiatal Hernia: No Hypertension: Yes Immune Disorder: No Kidney Stones: Yes Musculoskeletal: Yes Neurologic: Yes (INVOLUNTARY MUSCLE MOVEMENT) Psychiatric: Yes Reproductive: No Respiratory: Yes Myocardial Infarction: No Thyroid Disease: No Tetanus Vaccination: > 5 Years Influenza Vaccination: No ?: Not Menopausal: Yes : 0 Para: 0 Past Surgical History AICD: No Genitourinary Surgery: Yes (hemorrhoidectomy) Joint Replacement: No Oral Surgery: Yes (upper teeth extracted) Pacemaker: No Other Surgery: Yes Social History Alcohol Use: No Tobacco Use: No (QUIT NOVEMBER 2016) Substance Use: Yes (marajuana light last week) Allergies-Medications (Allergen,Severity, Reaction): Coded Allergies: cephalexin (Verified Allergy, Severe, RASH, 05/28/17) Reported Meds & Prescriptions Reported Meds & Active Scripts Active Metformin (Metformin HCl) 500 Mg Tab 500 Mg PO BIDPC With meals Do not take until 01/01/17 Plavix (Clopidogrel Bisulfate) 75 Mg Tab 75 Mg PO DAILY 30 Days Atorvastatin (Atorvastatin Calcium) 80 Mg Tab 80 Mg PO HS 30 Days Aspirin Low Strength (Aspirin) 81 Mg Chew 81 Mg CHEW DAILY 30 Days Amlodipine (Amlodipine Besylate) 10 Mg Tab 10 Mg PO DAILY Humulin 70-30 Inj (Insulin NPH Isophane-Reg (Human) 70-30 Inj) 1,000 Unit/10 Ml Vial 60 Units IJ BID PRN 30 Days Reported Lisinopril 40 Mg Tab 40 Mg PO DAILY Hydroxyzine HCl 25 Mg Tab 25 Mg PO QID Gabapentin 300 Mg Cap 300 Mg PO TID Omeprazole 20 Mg Cap 20 Mg PO DAILY Review of Systems Except as stated in HPI: all other systems reviewed are Neg Physical Exam Narrative GENERAL: 62yo F who is pleasant, well-developed and well nourished in mild distress. Alert and oriented x3. SKIN: Warm and dry. HEAD: Atraumatic. Normocephalic. NECK: Trachea midline. No JVD. Supple. CARDIOVASCULAR: Regular rate and rhythm. No murmurs or gallops. No carotid bruits. Pedal and radial pulses palpated and symmetric. RESPIRATORY: No accessory muscle use. Clear to auscultation. Breath sounds equal bilaterally. GASTROINTESTINAL: Abdomen soft, non-tender, nondistended. Hepatic and splenic margins not palpable. MUSCULOSKELETAL: Extremities without clubbing, cyanosis, or edema. No obvious deformities. NEUROLOGICAL: Awake and alert. No obvious cranial nerve deficits. Motor grossly within normal limits. Normal speech. PSYCHIATRIC: Appropriate mood and affect; insight and judgment normal. Data Data Last Documented VS Vital Signs Date Time Temp Pulse Resp B/P (MAP) Pulse Ox O2 Delivery O2 Flow Rate FiO2 05/28/17 18:00 97.8 60 16 168/86 (113) 99 Room Air Orders Orders Electrocardiogram (05/28/17 15:15) Ckmb (Isoenzyme) Profile (05/28/17 15:15) Complete Blood Count With Diff (05/28/17 15:15) Comprehensive Metabolic Panel (05/28/17 15:15) Magnesium (Mg) (05/28/17 15:15) Prothrombin Time / Inr (Pt) (05/28/17 15:15) Act Partial Throm Time (Ptt) (05/28/17 15:15) Troponin I (05/28/17 15:15) Chest, Single Ap (05/28/17 15:15) Ecg Monitoring (05/28/17 15:15) Bilateral Bp Monitoring (05/28/17 15:15) Iv Access Insert/Monitor (05/28/17 15:15) Oximetry (05/28/17 15:15) Oxygen Administration (05/28/17 15:15) Sodium Chloride 0.9% Flush (Ns Flush) (05/28/17 15:15) B-Type Natriuretic Peptide (05/28/17 15:45) CKMB (05/28/17 15:20) CKMB% (05/28/17 15:20) Ckmb (Isoenzyme) Profile (05/28/17 17:07) Troponin I (05/28/17 17:07) CKMB (05/28/17 17:30) CKMB% (05/28/17 17:30) Admit Order (Ed Use Only) (05/28/17 19:12) Activity Bed Rest With Brp (05/28/17 19:12) Vital Signs (Adult) Q4H (05/28/17 19:12) Cardiac Rhythm .As Directed (05/28/17 19:12) Notify Dr: Other .PRN (05/28/17 19:12) Notify Parameters (05/28/17 19:12) Resp Oxygen Nasal Cannula (05/28/17 ) Diet Heart Healthy (05/29/17 Breakfast) Ckmb (Isoenzyme) Profile (05/28/17 19:12) Ckmb (Isoenzyme) Profile (05/28/17 22:12) Troponin I (05/28/17 19:12) Troponin I (05/28/17 22:12) Electrocardiogram (05/28/17 19:12) Electrocardiogram (05/28/17 22:12) ^ Obtain (05/28/17 19:12) Sodium Chloride 0.9% Flush (Ns Flush) (05/28/17 19:15) Sodium Chloride 0.9% Flush (Ns Flush) (05/28/17 21:00) Construction Inspector / Telemetry [id number] (05/28/17 19:12) Labs Laboratory Tests Test 05/28/17 15:20 05/28/17 17:30 White Blood Count 9.3 TH/MM3 Red Blood Count 4.57 MIL/MM3 Hemoglobin 13.7 GM/DL Hematocrit 40.2 % Mean Corpuscular Volume 87.9 FL Mean Corpuscular Hemoglobin 30.0 PG Mean Corpuscular Hemoglobin Concent 34.1 % Red Cell Distribution Width 13.2 % Platelet Count 314 TH/MM3 Mean Platelet Volume 8.7 FL Neutrophils (%) (Auto) 62.0 % Lymphocytes (%) (Auto) 27.1 % Monocytes (%) (Auto) 8.5 % Eosinophils (%) (Auto) 1.9 % Basophils (%) (Auto) 0.5 % Neutrophils # (Auto) 5.8 TH/MM3 Lymphocytes # (Auto) 2.5 TH/MM3 Monocytes # (Auto) 0.8 TH/MM3 Eosinophils # (Auto) 0.2 TH/MM3 Basophils # (Auto) 0.0 TH/MM3 CBC Comment DIFF FINAL Differential Comment Prothrombin Time 11.1 SEC Prothromb Time International Ratio 1.1 RATIO Activated Partial Thromboplast Time 28.4 SEC Blood Urea Nitrogen 9 MG/DL Creatinine 0.85 MG/DL Random Glucose 144 MG/DL Total Protein 8.0 GM/DL Albumin 3.5 GM/DL Calcium Level 8.6 MG/DL Magnesium Level 1.9 MG/DL Alkaline Phosphatase 133 U/L Aspartate Amino Transf (AST/SGOT) 26 U/L Alanine Aminotransferase (ALT/SGPT) 46 U/L Total Bilirubin 0.2 MG/DL Sodium Level 138 MEQ/L Potassium Level 3.8 MEQ/L Chloride Level 103 MEQ/L Carbon Dioxide Level 28.2 MEQ/L Anion Gap 7 MEQ/L Estimat Glomerular Filtration Rate 68 ML/MIN Total Creatine Kinase 142 U/L 116 U/L Creatine Kinase MB 1.2 NG/ML 0.9 NG/ML Troponin I 0.02 NG/ML 0.02 NG/ML B-Type Natriuretic Peptide 38 PG/ML MDM Medical Decision Making Medical Screen Exam Complete: Yes Emergency Medical Condition: Yes Medical Record Reviewed: Yes Interpretation(s) EKG shows normal sinus rhythm with T wave inversions in V3 through V6. No acute ST elevations. Laboratory Tests Test 05/28/17 15:20 05/28/17 17:30 Monocytes (%) (Auto) 8.5 % (0.0-8.0) Random Glucose 144 MG/DL (74-106) Alkaline Phosphatase 133 U/L (45-117) Estimat Glomerular Filtration Rate 68 ML/MIN (>89) Last 24 hours Impressions Chest X-Ray 05/28/17 1511 Signed Impressions: Service Date/Time: May 15:20 - CONCLUSION: Normal examination. Lake Williamson MD Differential Diagnosis ACS versus metabolic issues versus dysrhythmias Narrative Course EKG shows T-wave changes compared to previous EKG on record. Cardiac enzymes are negative. Lab work did not show significant metabolic issues. Patient was discussed briefly with Dr. Ma who is covering for Dr. Allan, pari mutual ticket checker for the patient, and he has suggested further cardiac enzyme testing. At this point, my plan would be to admit the patient to chest pain center for further evaluation. Diagnosis Primary Impression: Chest pain Admitting Information Admitting Physician Requests: Admit Mily Abraham MD May 28, 2017 15:58
[2017-05-28 16:04] LABS: ALKALINE PHOSPHATASE 133 U/L (45-117); TOTAL BILIRUBIN ADULT 0.2 MG/DL (0.2-1.0); TROPONIN I 0.02 NG/ML (0.02-0.05)
[2017-05-28 16:05] LABS: ALBUMIN 3.5 GM/DL (3.4-5.0); ALT (GPT) 46 U/L (10-53); AST (GOT) 26 U/L (15-37); BICARBONATE 28.2 MEQ/L (21.0-32.0); BLOOD UREA NITROGEN 9 MG/DL (7-18); CALCIUM 8.6 MG/DL (8.5-10.1); CHLORIDE 103 MEQ/L (98-107); CREATININE 0.85 MG/DL (0.50-1.00); GLOMERULAR FILTRATION RATE 68 ML/MIN (>89); GLUCOSE,RANDOM 144 MG/DL (74-106); MAGNESIUM 1.9 MG/DL (1.5-2.5); SODIUM (NA) 138 MEQ/L (136-145)
[2017-05-28 18:17] LABS: TROPONIN I 0.02 NG/ML (0.02-0.05)
[2017-05-28] MEDS ORDERED: SODIUM CHLORIDE 0.9% FLUSH 10 ML FLUSH IV FLUSH PRN ×2 (19:15→22:45)
--- NOTE | 2017-05-28 19:46 | EKG ---
Date Performed: 05/28/2017 Time Performed: 15:17:04 PTAGE: 62 years EKG: Sinus rhythm PROBABLE INFERIOR MYOCARDIAL INFARCTION Nonspecific T wave changes ABNORMAL ECG Compared to prior el ectrocardiogram, Nonspecific T wave changes are now present PREVIOUS TRACING : 12/30/2016 09.05 DOCTOR: Chuy Zaman Interpretating Date/Time 05/28/2017 19:45:58
[2017-05-28 20:37] LABS: TROPONIN I LESS THAN 0.02 NG/ML (0.02-0.05)
[2017-05-28] MEDS ORDERED: SODIUM CHLORIDE 0.9% FLUSH 10 ML FLUSH IV FLUSH SCH (21:00)
--- NOTE | 2017-05-28 21:49 | EKG ---
Date Performed: 05/28/2017 Time Performed: 20:04:10 PTAGE: 62 years EKG: SINUS BRADYCARDIA Nonspecific ST and T wave abnormalities ABNORMAL ECG No significant larson e from prior electrocardiogram. PREVIOUS TRACING : 05/28/2017 15.17 DOCTOR: Chuy Zaman Interpretating Date/Time 05/28/2017 21:48:03
[2017-05-28] MEDS ORDERED: ACETAMINOPHEN 500 MG CPLT PO PRN (22:45)
[2017-05-28] MEDS ORDERED: ONDANSETRON HCL 4 MG/2 ML VIAL IV PUSH PRN (22:45)
[2017-05-28] MEDS ORDERED: GABAPENTIN 300 MG CAP PO SCH (23:00)
[2017-05-28] MEDS ORDERED: ATORVASTATIN 80 MG TAB PO SCH (23:00)
[2017-05-28] MEDS ORDERED: MORPHINE SULFATE 2 MG/ML INJ IV PRN (23:00)
[2017-05-29] VITALS (13 sets, daily range): BP systolic 129–190; BP diastolic 62–89; PULSE 53–71; RESP 16–18; TEMP 97.7–98.6; O2SAT 95–98
[2017-05-29] MEDS ORDERED: DEXTROSE 50% IN WATER 50 ML VIAL(D50) IV PUSH PRN (09:45)
[2017-05-29] MEDS ORDERED: GLUCAGON 1 MG/ML VIAL OTHER PRN (09:45)
--- NOTE | 2017-05-29 09:57 | HHI.HP ---
HPI Service [employer] Primary Care Physician Unknown Chief Complaint SOB AND PALPITATIONS History of Present Illness 62 YO lady with a known history of CAD and silent NV in past with two stents by Dr. Allan in December. She has been experiencing some vague SOB and palpitations while working out doors since the cold weather started about two weeks ago. She went to her PCP Dr. Casey (new for her) who obtained an EKG and sent her to the ED via [facility]. She has had no CP at all. With her prior NV she had one episode of sharp CP but largely asymptomatic. She is comfortable here but her EKG while showing old IWMI does show new T changes which could be ischemic. Review of Systems Morning cramping of lower extremities Past Family Social History Allergies: Coded Allergies: cephalexin (Verified Allergy, Severe, RASH, 05/28/17) Reported Medications Reported Meds & Active Scripts Active Metformin (Metformin HCl) 500 Mg Tab 500 Mg PO BIDPC With meals Do not take until 01/01/17 Plavix (Clopidogrel Bisulfate) 75 Mg Tab 75 Mg PO DAILY 30 Days Atorvastatin (Atorvastatin Calcium) 80 Mg Tab 80 Mg PO HS 30 Days Aspirin Low Strength (Aspirin) 81 Mg Chew 81 Mg CHEW DAILY 30 Days Amlodipine (Amlodipine Besylate) 10 Mg Tab 10 Mg PO DAILY Humulin 70-30 Inj (Insulin NPH Isophane-Reg (Human) 70-30 Inj) 1,000 Unit/10 Ml Vial 60 Units IJ BID PRN 30 Days Reported Lisinopril 40 Mg Tab 40 Mg PO DAILY Hydroxyzine HCl 25 Mg Tab 25 Mg PO QID Gabapentin 300 Mg Cap 300 Mg PO TID Omeprazole 20 Mg Cap 20 Mg PO DAILY Active Ordered Medications Current Medications Medications (Trade) Dose Ordered Sig/Paula Route Start Time Stop Time Status Last Admin (NS Flush) 2 ml UNSCH PRN IVF 05/28/17 15:15 05/28/17 15:22 (NS Flush) 2 ml UNSCH PRN IV FLUSH 05/28/17 19:15 (NS Flush) 2 ml BID IV FLUSH 05/28/17 21:00 05/28/17 21:00 (NS Flush) 2 ml UNSCH PRN IV FLUSH 05/28/17 22:45 (NS Flush) 2 ml UNSCH PRN IV FLUSH 05/28/17 22:45 (Tylenol) 500 mg Q4H PRN PO 05/28/17 22:45 (Morphine Inj) 2 mg Q4H PRN IV 05/28/17 23:00 (Zofran Inj) 4 mg Q6H PRN IV PUSH 05/28/17 22:45 (NovoLOG SUPPLEMENTAL SCALE) 1 ACHS SLIDING SCALE SQ 05/29/17 12:00 (D50w (Vial) Inj) 50 ml UNSCH PRN IV PUSH 05/29/17 09:45 (Glucagon Inj) 1 mg UNSCH PRN OTHER 05/29/17 09:45 Family History Mother had silent NV's Social History Quit smoking in November No alcohol Occasional marijuana Physical Exam Vital Signs Vital Signs Date Time Temp Pulse Resp B/P (MAP) Pulse Ox O2 Delivery O2 Flow Rate FiO2 05/29/17 08:13 98.6 56 18 140/65 (90) 96 05/29/17 05:22 98.6 58 17 129/62 (84) 95 05/29/17 03:58 55 05/29/17 02:55 2.00 05/29/17 00:36 97.7 55 16 158/72 (100) 96 05/29/17 00:04 55 05/28/17 20:40 56 05/28/17 20:34 98.2 59 16 169/77 (107) 97 05/28/17 19:52 60 18 165/79 (107) 97 Room Air 05/28/17 18:00 97.8 60 16 168/86 (113) 99 Room Air 05/28/17 16:38 97.9 58 16 176/84 (114) 97 Room Air 05/28/17 15:16 98 Room Air 05/28/17 15:16 97.8 67 16 176/79 (111) 98 Room Air 188/78 (114) 05/28/17 15:16 16 98 Room Air 05/28/17 14:55 64 16 98 Room Air 05/28/17 14:53 98.2 76 16 176/79 (111) 98 Physical Exam General WNWD in no distress sitting on side of bed SKN No lesions normal turgor and texture HEENT ARCHANA, EOMI MM moist, upper plate, no lesions NECK No masses nodes or JVD CHEST Clear to auscultation no RWR CV RSR without GRM ABD Soft nontender no guarding or rebound EXT No CCE NEURO Alert cranial nerves intact, motor equal Laboratory Laboratory Tests Test 05/28/17 15:20 05/28/17 17:30 05/28/17 19:52 White Blood Count 9.3 Red Blood Count 4.57 Hemoglobin 13.7 Hematocrit 40.2 Mean Corpuscular Volume 87.9 Mean Corpuscular Hemoglobin 30.0 Mean Corpuscular Hemoglobin Concent 34.1 Red Cell Distribution Width 13.2 Platelet Count 314 Mean Platelet Volume 8.7 Neutrophils (%) (Auto) 62.0 Lymphocytes (%) (Auto) 27.1 Monocytes (%) (Auto) 8.5 Eosinophils (%) (Auto) 1.9 Basophils (%) (Auto) 0.5 Neutrophils # (Auto) 5.8 Lymphocytes # (Auto) 2.5 Monocytes # (Auto) 0.8 Eosinophils # (Auto) 0.2 Basophils # (Auto) 0.0 CBC Comment DIFF FINAL Differential Comment Prothrombin Time 11.1 Prothromb Time International Ratio 1.1 Activated Partial Thromboplast Time 28.4 Blood Urea Nitrogen 9 Creatinine 0.85 Random Glucose 144 Total Protein 8.0 Albumin 3.5 Calcium Level 8.6 Magnesium Level 1.9 Alkaline Phosphatase 133 Aspartate Amino Transf (AST/SGOT) 26 Alanine Aminotransferase (ALT/SGPT) 46 Total Bilirubin 0.2 Sodium Level 138 Potassium Level 3.8 Chloride Level 103 Carbon Dioxide Level 28.2 Anion Gap 7 Estimat Glomerular Filtration Rate 68 Total Creatine Kinase 142 116 116 Creatine Kinase MB 1.2 0.9 1.0 Troponin I 0.02 0.02 LESS THAN 0.02 B-Type Natriuretic Peptide 38 Result Diagram: 05/28/17 1520 05/28/17 1520 Imaging CXR JAMILA Course Atypical presentation but known CAD and new ST T changes Will repeat a FRANCISCO and discuss with Dr. Allan if abnormal Caprini VTE Risk Assessment Caprini VTE Risk Assessment: No/Low Risk (score <= 1) Caprini Risk Assessment Model Point Value = 1 Point Value = 2 Point Value = 3 Point Value = 5 Age 41-60 Minor surgery BMI > 25 kg/m2 Swollen legs Varicose veins or History of unexplained or recurrent spontaneous Oral contraceptives or hormone replacement Sepsis (< 1 month) Serious lung disease, including pneumonia (< 1 month) Abnormal pulmonary function Acute myocardial infarction Congestive heart failure (< 1 month) History of inflammatory bowel disease Medical patient at bed rest Age 61-74 Arthroscopic surgery Major open surgery (> 45 min) Laparoscopic surgery (> 45 min) Malignancy Confined to bed (> 72 hours) Immobilizing plaster cast Central venous access Age >= 75 History of VTE Family history of VTE Factor V Leiden Prothrombin [id number] Lupus anticoagulant Anticardiolipin antibodies Elevated serum homocysteine Heparin-induced thrombocytopenia Other congenital or acquired thrombophilia Stroke (< 1 month) Elective arthroplasty Hip, pelvis, or leg fracture Acute spinal cord injury (< 1 month) Prophylaxis Regimen Total Risk Factor Score Risk Level Prophylaxis Regimen 0-1 Low Early ambulation 2 Moderate Order ONE of the following: *Sequential Compression Device (SCD) *Heparin 5000 units SQ BID 3-4 Higher Order ONE of the following medications: *Heparin 5000 units SQ TID *Enoxaparin/Lovenox 40 mg SQ daily (WT < 150 kg, CrCl > 30 mL/min) *Enoxaparin/Lovenox 30 mg SQ daily (WT < 150 kg, CrCl > 10-29 mL/min) *Enoxaparin/Lovenox 30 mg SQ BID (WT < 150 kg, CrCl > 30 mL/min) AND/OR *Sequential Compression Device (SCD) 5 or more Highest Order ONE of the following medications: *Heparin 5000 units SQ TID (Preferred with Epidurals) *Enoxaparin/Lovenox 40 mg SQ daily (WT < 150 kg, CrCl > 30 mL/min) *Enoxaparin/Lovenox 30 mg SQ daily (WT < 150 kg, CrCl > 10-29 mL/min) *Enoxaparin/Lovenox 30 mg SQ BID (WT < 150 kg, CrCl > 30 mL/min) AND *Sequential Compression Device (SCD) Assessment and Plan Problem List: (1) CAD (coronary artery disease) ICD Codes: I25.10 - Atherosclerotic heart disease of [place] coronary artery without angina pectoris Status: Acute Plan: RO with [employer] protocol and FRANCISCO (2) Hyperlipidemia ICD Codes: E78.5 - Hyperlipidemia, unspecified Status: Chronic (3) Hypertension ICD Codes: I10 - Essential (primary) hypertension Status: Chronic (4) Diabetes ICD Codes: E11.9 - Diabetes mellitus Status: Chronic (5) FH: heart disease ICD Codes: Z82.49 - Family history of ischemic heart disease and other diseases of the circulatory system Eric Chadwick MD May 29, 2017 09:57
[2017-05-29] MEDS ORDERED: REGADENOSON INJ 0.4 MG/5 ML SYR ONE (11:09)
--- NOTE | 2017-05-29 11:53 | EKG ---
Date Performed: 05/29/2017 Time Performed: 00:34:25 PTAGE: 62 years EKG: SINUS BRADYCARDIA LEFT VENTRICULAR HYPERTROPHY AND ST-T CHANGE PROBABLE INFERIOR MYOCARDIAL INFARCTION ABNORMAL ECG NO SIG CHANGE PREVIOUS TRACING : 05/28/2017 20.04 DOCTOR: Eric Chadwick Interpretating Date/Time 05/29/2017 11:52:38
--- NOTE | 2017-05-29 12:02 | TR ---
Date Performed: 05/29/2017 Time Performed: 11:09:08 DOCTOR: Eric Chadwick DRUG LIST: CLINICAL HISTORY: REASON FOR TEST: REASON FOR ENDING: OBSERVATION: CONCLUSION: Lexiscan stress test was performed under standard four minute protocol. Radionuclide was injected one minute prior to ending the test. mild ST changes were noted but No electrocardiogra phic abormalities were present to verify ischemia. Nuclear imaging and interpretation are pending. COMMENTS:
--- NOTE | 2017-05-29 12:08 | RADRPT ---
EXAM DATE/TIME: 05/29/2017 10:31 [facility] COMPARISON: CHEST SINGLE AP, May 28, 2017, 15:20. INDICATIONS : Substernal chest pain. Angina. Abnormal EKG. DOSE: 27.3 mCi Tc99m Myoview at stress. 8.8 mCi Tc99m Myoview at rest. 0.4 mg Lexiscan STRESS SYMPTOMS: Dyspnea and weird feeling. EJECTION FRACTION: 55% MEDICAL HISTORY : Hypertension. Diabetes mellitus type 2. Myocardial infarction. SURGICAL HISTORY : Coronary artery stent. ENCOUNTER: Initial ACUITY: 2 days PAIN SCALE: 4/10 LOCATION: Substernal chest TECHNIQUE: The patient underwent pharmacologic stress with infusion of prescribed dose. Continuous ECG tracing was monitored during stress. Gated SPECT imaging was performed after stress and conventional SPECT i maging was performed at rest. The examination was performed on a SPECT/CT scanner, both attenuation and non-corrected datasets were reviewed. FINDINGS: DISTRIBUTION: The maximum perfused segment at stress is in the lateral wall. PERFUSION STUDY: There is a subtle and stress score of 22. There is a large partially reversible defect involving the anterior and apical anna. There is a moderate size reversible inferior wall defect as well. GATED STUDY: There is intact wall motion and thickening without hypokinetic or dyskinetic segments. CONCLUSION: 1. Large partially reversible anterior and apical wall defects which could indicate ischemia in the l eft anterior descending artery distribution. 2. Moderate size reversible defect involving the inferior wall which could indicate ischemia in the r ight coronary artery distribution. 3. Normal wall motion and calculated ejection fraction. RISK CATEGORY: High (>3% Annual Mortality Rate) Cecilio Javed MD on May 29, 2017 at 12:01 Board Certified Radiologist. This report was verified electronically.
[2017-05-29] MEDS ORDERED: SODIUM CHLOR 0.9% 1000 ML INJ 1,000 ML IV SCH (12:46)
[2017-05-29] MEDS: LISINOPRIL 20 MG TAB PO SCH (13:31)
[2017-05-29] MEDS: PANTOPRAZOLE SOD 20 MG DELAYED RELEASE TAB PO SCH (13:31)
[2017-05-29] MEDS: GABAPENTIN 300 MG CAP PO SCH ×2 (13:32→18:37)
[2017-05-29] MEDS: CLOPIDOGREL 75 MG TAB PO SCH (13:32)
[2017-05-29] MEDS: INSULIN ASPART SUPPLEMENTAL SCALE SQ SCH ×3 (13:41→21:44)
[2017-05-29] MEDS ORDERED: ASPIRIN 325 MG TAB PO ONE (13:45)
--- NOTE | 2017-05-29 18:40 | MB ---
cc: ASHLEY CHAVIS M.D. DATE OF CONSULTATION: 05/29/2017. REASON FOR CONSULTATION: Chest pain, abnormal nuclear stress test. HISTORY OF PRESENT ILLNESS: The patient is a 62-year-old white female, followed in our office by Dr. Robert Allan, with a history of hypertension, diabetes, gastroesophageal reflux disease, coronary artery disease who presented to the hospital mainly with complaints of increasing dyspnea on exertion. She states that simply walking to the mailbox precipitates considerable dyspnea. She has no definite chest pains. Chronically and without change, she has intermittent sporadic right flank pain which lasts up to 15 minutes. She thinks she may have had a couple seconds of sharp left lower axillary pain last night. Nuclear stress testing here suggested both anterior and inferior ischemia. The patient denies any shortness of breath at rest or paroxysmal nocturnal dyspnea. In addition, she denies pedal edema, lightheadedness, syncope, near-syncope, fevers, pleurisy. With exertion, she does experience racing pounding palpitations that she feels most notably in her throat. PAST MEDICAL HISTORY: 1. Hypertension. 2. Diabetes. 3. Gastroesophageal reflux disease (GERD). 4. Peripheral neuropathy. 5. Coronary artery disease status post Resolute stenting of a chronic total occlusion of the right coronary artery 12/30/[address] Robert Allan. CARDIAC MEDICATIONS AT HOME: 1. Plavix 75 milligrams daily. 2. Atorvastatin 80 milligrams at bedtime. 3. Aspirin 81 milligrams daily. 4. Amlodipine 10 milligrams daily. 5. Lisinopril 40 milligrams daily. ALLERGIES: CEPHALEXIN. FAMILY HISTORY: Noncontributory. SOCIAL HISTORY: The patient quit smoking in November of 2016. She denies alcohol abuse. REVIEW OF SYSTEMS: Review of systems as in the history of present illness otherwise negative or noncontributory. She also denies headache, abdominal pain, melena, dyspepsia, bright red blood per rectum. PHYSICAL EXAMINATION: VITAL SIGNS: On physical examination, her blood pressure 140/70 with a pulse of 65, respirations 18. GENERAL: She is a well-developed, well-nourished white female in no acute distress. HEAD, EYES, EARS, NOSE, THROAT: On HEENT examination jugular venous pressure is normal. Carotid pulses are 2+ bilaterally and without bruits. CHEST: Examination of the chest reveals clear lung sharma. CARDIAC: On cardiac examination, she has a regular rhythm and rate with a grade 1/6 systolic ejection murmur heard at the base of the heart. The S2 heart sound is normal. No gallop is audible. ABDOMEN: On abdominal examination, she has a soft, nontender abdomen. Bowel sounds are present. There is no definite hepatosplenomegaly. EXTREMITIES: Examination of extremities reveals no clubbing, cyanosis or edema. Peripheral pulses are normal throughout. LABORATORY DATA: Laboratory data includes normal CBC, glucose 144, potassium 3.8, BUN 9, creatinine 0.85, negative cardiac enzymes. IMAGING STUDIES: Chest x-ray shows no acute disease. EKGS: EKG shows sinus bradycardia, anterior T wave abnormality, consider ischemia. IMPRESSION: Abnormal nuclear stress test, increasing dyspnea on exertion in this 62-year-old white female with a history of coronary artery disease status post stenting of a right coronary chronic total occlusion 12/30/2016, history of hypertension, diabetes. I have reviewed her nuclear stress test images. I would agree with the interpretation. Interestingly, she had no high-grade disease in the left coronary system on her heart catheterization four months ago. There was a 40-50% proximal LAD lesion and she does have anterior T-wave inversion, which is new, on her most recent EKG. The inferior ischemia on nuclear images is also noted, although there is considerable gut radiotracer uptake on the images. I do suspect her increased dyspnea on exertion is an angina equivalent. There is no other evidence for congestive heart failure. In light of the her symptoms and the high-risk nuclear stress test findings, she has been recommended cardiac catheterization with possible repeat percutaneous coronary intervention. RECOMMENDATIONS: 1. Cardiac catheterization on Thursday by Dr. Robert Allan. 2. Will start heparin drip. 3. Will hold off on beta frida therapy given her relatively low heart rates. MD DAYO Jack/KYLEE /5:52 PM /6:16 PM [place]
[2017-05-29] MEDS ORDERED: HEPARIN SODIUM - IV 10,000 UNITS/10 ML VIAL IV PUSH ONE (19:00)
[2017-05-29] MEDS: SODIUM CHLORIDE 0.9% FLUSH 10 ML FLUSH IV FLUSH PRN (21:43)
[2017-05-29] MEDS: ATORVASTATIN 80 MG TAB PO SCH (21:43)
[2017-05-30] VITALS (8 sets, daily range): BP systolic 127–185; BP diastolic 61–90; PULSE 53–109; RESP 16–20; TEMP 97–98.5; O2SAT 94–99
[2017-05-30] MEDS ORDERED: HEPARIN SODIUM - IV 10,000 UNITS/10 ML VIAL IV PUSH PRN (01:00)
[2017-05-30] MEDS: HEPARIN-D5W 25,000 U/250 ML 250 ML IV PRN (07:50)
[2017-05-30] MEDS: SODIUM CHLORIDE 0.9% FLUSH 10 ML FLUSH IV FLUSH PRN (07:54)
[2017-05-30] MEDS: CLOPIDOGREL 75 MG TAB PO SCH (07:55)
[2017-05-30] MEDS: GABAPENTIN 300 MG CAP PO SCH ×3 (07:56→16:46)
[2017-05-30] MEDS: PANTOPRAZOLE SOD 20 MG DELAYED RELEASE TAB PO SCH (07:56)
[2017-05-30] MEDS: ASPIRIN 81 MG CHEW TAB CHEW SCH (07:56)
[2017-05-30] MEDS: LISINOPRIL 20 MG TAB PO SCH (07:57)
[2017-05-30] MEDS ORDERED: INSULIN HUMAN NPH/R 70/30 1,000 UNITS/10 ML VIAL SQ SCH ×2 (08:00→17:00)
[2017-05-30] MEDS: INSULIN ASPART SUPPLEMENTAL SCALE SQ SCH ×4 (08:00→21:00)
--- NOTE | 2017-05-30 09:49 | HHI.PR ---
Subjective Remarks Patient in nad. Feels a little better. No chest pain overnight. no n/v/d/c. No n/v/d/c. Says her BS is not controlled will restart her home insulin regimen Objective Vitals Vital Signs Date Time Temp Pulse Resp B/P (MAP) Pulse Ox O2 Delivery O2 Flow Rate FiO2 05/30/17 08:00 97.5 73 20 182/90 (120) 99 05/30/17 03:58 98.5 53 17 127/61 (83) 94 05/29/17 23:47 98.2 56 17 130/69 (89) 97 05/29/17 21:49 98.2 71 16 179/80 (113) 98 05/29/17 20:31 97 05/29/17 17:28 98.0 65 18 141/71 (94) 97 05/29/17 15:30 61 05/29/17 11:58 98.0 65 18 190/89 (122) 98 05/29/17 10:50 96 21 Result Diagram: 05/28/17 1520 05/28/17 1520 Imaging Last Impressions Myocardial Perfusion Scan Nuc Med 05/29/17 0000 Signed Impressions: Service Date/Time: Monday, May 29, 2017 10:31 - CONCLUSION: 1. Large partially reversible anterior and apical wall defects which could indicate ischemia in the left anterior descending artery distribution. 2. Moderate size reversible defect involving the inferior wall which could indicate ischemia in the right coronary artery distribution. 3. Normal wall motion and calculated ejection fraction. RISK CATEGORY: High (>3%% Annual Mortality Rate) Cecilio Javed MD Chest X-Ray 05/28/17 1515 Signed Impressions: Service Date/Time: May 15:20 - CONCLUSION: Normal examination. [place] Williamson MD Objective Remarks GENERAL: In nad, well nourished well developed patient. CARDIOVASCULAR: Regular rate and rhythm. RESPIRATORY: No accessory muscle use. Clear to auscultation. Breath sounds equal bilaterally. GASTROINTESTINAL: Abdomen soft, non-tender, nondistended. Hepatic and splenic margins not palpable. MUSCULOSKELETAL: Extremities without clubbing, cyanosis, or edema. No obvious deformities. NEUROLOGICAL: Awake and alert. No obvious cranial nerve deficits. Motor grossly within normal limits. Five out of 5 muscle strength in the arms and legs. Normal speech. PSYCHIATRIC: Appropriate mood and affect; insight and judgment normal. 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
--- NOTE | 2017-05-30 11:12 | PD.CARD.PN ---
Subjective Subjective Remarks Brief left axillary pain this morning. Continued dyspnea on exertion. No CP, dizziness, palpitations. Slept well. Objective Medications Item Value Date Time Aspirin 81 mg 05/30/17 0900 (Aspirin Chew) DAILY/CHEW 05/30/17 0756 Atorvastatin 80 mg 05/29/17 2100 Calcium HS/PO 05/29/17 2143 (Lipitor) Heparin Sodium/ 250 ml @ 10 mls/hr 05/29/17 1900 Dextrose TITRATE PRN/IV 05/30/17 0750 Lisinopril 40 mg 05/29/17 1300 (Prinivil) DAILY/PO 05/30/17 0757 Amlodipine 10 mg 05/29/17 1245 Besylate DAILY/PO 05/30/17 0757 (Norvasc) Clopidogrel 75 mg 05/29/17 1245 Bisulfate DAILY/PO 05/30/17 0755 (Plavix) Current Medications Medications (Trade) Dose Ordered Sig/Paula Route Start Time Stop Time Status Last Admin (NS Flush) 2 ml UNSCH PRN IV FLUSH 05/28/17 22:45 05/30/17 07:54 (NS Flush) 2 ml UNSCH PRN IV FLUSH 05/28/17 22:45 (Tylenol) 500 mg Q4H PRN PO 05/28/17 22:45 (Morphine Inj) 2 mg Q4H PRN IV 05/28/17 23:00 (Zofran Inj) 4 mg Q6H PRN IV PUSH 05/28/17 22:45 (NovoLOG SUPPLEMENTAL SCALE) 1 ACHS SLIDING SCALE SQ 05/29/17 12:00 05/30/17 08:00 (D50w (Vial) Inj) 50 ml UNSCH PRN IV PUSH 05/29/17 09:45 (Glucagon Inj) 1 mg UNSCH PRN OTHER 05/29/17 09:45 (Norvasc) 10 mg DAILY PO 05/29/17 12:45 05/30/17 07:57 (Aspirin Chew) 81 mg DAILY CHEW 05/30/17 09:00 05/30/17 07:56 (Lipitor) 80 mg HS PO 05/29/17 21:00 05/29/17 21:43 (Plavix) 75 mg DAILY PO 05/29/17 12:45 05/30/17 07:55 (Neurontin) 300 mg TID PO 05/29/17 13:00 05/30/17 07:56 (Prinivil) 40 mg DAILY PO 05/29/17 13:00 05/30/17 07:57 (Protonix) 20 mg DAILY PO 05/29/17 13:00 05/30/17 07:56 (Heparin Inj) 5,000 units UNSCH PRN IV PUSH 05/30/17 01:00 (Heparin Inj) 2,500 units UNSCH PRN IV PUSH 05/30/17 01:00 Heparin Sodium/ Dextrose 250 ml @ 10 mls/hr TITRATE PRN IV 05/29/17 19:00 05/30/17 07:50 (NovoLIN 70/30 INJ) 30 units BID@08,17 SQ 05/30/17 08:00 05/30/17 08:00 Vital Signs / I&O Vital Signs Date Time Temp Pulse Resp B/P (MAP) Pulse Ox O2 Delivery O2 Flow Rate FiO2 05/30/17 08:00 78 05/30/17 08:00 97.5 73 20 182/90 (120) 99 05/30/17 03:58 98.5 53 17 127/61 (83) 94 05/29/17 23:47 98.2 56 17 130/69 (89) 97 05/29/17 21:49 98.2 71 16 179/80 (113) 98 05/29/17 20:31 97 05/29/17 17:28 98.0 65 18 141/71 (94) 97 05/29/17 15:30 61 05/29/17 11:58 98.0 65 18 190/89 (122) 98 Physical Exam GENERAL: Well developed, well nourished. No acute distress. HEENT: Jugular venous pressure is normal. CHEST: Lungs clear to auscultation bilaterally. Unlabored respiratory effort. CARDIAC: Regular rate and rhythm without S3, S4, or murmur. ABDOMEN: Soft, nontender, no hepatosplenomegaly. Bowel sounds present. EXTREMITIES: No clubbing, cyanosis, or edema. Assessment and Plan Problem List: (1) CAD (coronary artery disease) ICD Codes: I25.10 - Atherosclerotic heart disease of [place] coronary artery without angina pectoris Status: Acute Plan: Overall stable overnight. Still with considerable dyspnea on exertion, possibly angina equivalent. Nuclear stress test imaging abnormal in both LAD and RCA territories. REC continue current regimen, try to add low dose beta frida cath Thursday morning by Dr. Allan will see patient PRN tomorrow (2) Hyperlipidemia ICD Codes: E78.5 - Hyperlipidemia, unspecified Status: Chronic Plan: Follows with PCP as outpatient. Rec continue high dose atorvastatin. (3) Hypertension ICD Codes: I10 - Essential (primary) hypertension Status: Chronic Plan: Widely fluctuating BP's. To add low dose carvedilol today. Code Status full code Discussed Condition With patient Problem Qualifiers (1) CAD (coronary artery disease): Qualified Codes: I25.110 - Atherosclerotic heart disease of [place] coronary artery with unstable angina pectoris (2) Hyperlipidemia: Qualified Codes: E78.5 - Hyperlipidemia, unspecified (3) Hypertension: Qualified Codes: I10 - Essential (primary) hypertension Michael Benito MD May 30, 2017 11:12
[2017-05-30] MEDS: SODIUM CHLOR 0.9% 1000 ML INJ 1,000 ML IV SCH ×2 (11:14→21:14)
[2017-05-30] MEDS ORDERED: DIAZEPAM 10 MG TAB PO SCH (11:15)
[2017-05-30] MEDS ORDERED: MIDAZOLAM HCL 2 MG/2 ML VIAL IV PUSH SCH (11:15)
[2017-05-30] MEDS ORDERED: diphenhydrAMINE HCL 50 MG CAP PO SCH (11:15)
[2017-05-30] MEDS ORDERED: INSULIN ASPAR PROT 70/30 1,000 UNITS/10 ML VIAL SQ ONE (12:00)
[2017-05-30] MEDS: LORazepam 0.5 MG TAB PO PRN ×2 (13:58→23:27)
[2017-05-30] MEDS: HEPARIN SODIUM - IV 10,000 UNITS/10 ML VIAL IV PUSH PRN (16:47)
[2017-05-30] MEDS: ATORVASTATIN 80 MG TAB PO SCH (23:26)
[2017-05-31] VITALS (10 sets, daily range): BP systolic 126–162; BP diastolic 67–79; PULSE 54–82; RESP 16–18; TEMP 97.8–98.6; O2SAT 96–98
[2017-05-31] MEDS: HEPARIN-D5W 25,000 U/250 ML 250 ML IV PRN ×2 (04:38→23:56)
[2017-05-31] MEDS: SODIUM CHLOR 0.9% 1000 ML INJ 1,000 ML IV SCH ×2 (07:14→17:18)
[2017-05-31] MEDS: HEPARIN SODIUM - IV 10,000 UNITS/10 ML VIAL IV PUSH PRN (07:26)
[2017-05-31] MEDS: LISINOPRIL 20 MG TAB PO SCH (08:32)
[2017-05-31] MEDS: PANTOPRAZOLE SOD 20 MG DELAYED RELEASE TAB PO SCH (08:32)
[2017-05-31] MEDS: GABAPENTIN 300 MG CAP PO SCH ×3 (08:32→17:17)
[2017-05-31] MEDS: CLOPIDOGREL 75 MG TAB PO SCH (08:32)
[2017-05-31] MEDS: ASPIRIN 81 MG CHEW TAB CHEW SCH (08:33)
[2017-05-31] MEDS: SODIUM CHLORIDE 0.9% FLUSH 10 ML FLUSH IV FLUSH PRN (08:33)
[2017-05-31] MEDS: INSULIN ASPART SUPPLEMENTAL SCALE SQ SCH ×4 (08:59→22:05)
[2017-05-31] MEDS: INSULIN HUMAN NPH/R 70/30 1,000 UNITS/10 ML VIAL SQ SCH ×2 (08:59→17:18)
--- NOTE | 2017-05-31 11:02 | HHI.PR ---
Subjective Remarks Less anxious says meds for anxiety works. No chest pain overnight, No n/v/d/c. BS eleazar a lower side decrease insulin to 30 U BID as patien will also be NpO after midnight Objective Vitals Vital Signs Date Time Temp Pulse Resp B/P (MAP) Pulse Ox O2 Delivery O2 Flow Rate FiO2 05/31/17 07:58 97.8 61 16 143/73 (96) 96 05/31/17 03:11 98.6 54 16 156/67 (96) 97 05/30/17 23:16 98.0 58 16 133/69 (90) 98 05/30/17 20:36 97 05/30/17 20:13 98.3 68 16 180/82 (114) 97 05/30/17 18:05 109 05/30/17 16:00 97.0 66 20 140/76 (97) 97 05/30/17 12:00 97.0 67 20 185/84 (117) 96 I/O 05/30/17 05/30/17 05/30/17 05/31/17 05/31/17 05/31/17 07:00 15:00 23:00 07:00 15:00 23:00 Intake Total 720 ml Balance 720 ml Intake Oral 720 ml # Voids 7 Result Diagram: 05/28/17 1520 05/28/17 1520 Imaging Last Impressions Myocardial Perfusion Scan Nuc Med 05/29/17 0000 Signed Impressions: Service Date/Time: Monday, May 29, 2017 10:31 - CONCLUSION: 1. Large partially reversible anterior and apical wall defects which could indicate ischemia in the left anterior descending artery distribution. 2. Moderate size reversible defect involving the inferior wall which could indicate ischemia in the right coronary artery distribution. 3. Normal wall motion and calculated ejection fraction. RISK CATEGORY: High (>3%% Annual Mortality Rate) Cecilio Javed MD Chest X-Ray 05/28/17 1515 Signed Impressions: Service Date/Time: May 15:20 - CONCLUSION: Normal examination. [place] Williamson MD Objective Remarks GENERAL: In nad, well nourished well developed patient. CARDIOVASCULAR: Regular rate and rhythm. RESPIRATORY: No accessory muscle use. Clear to auscultation. Breath sounds equal bilaterally. GASTROINTESTINAL: Abdomen soft, non-tender, nondistended. Hepatic and splenic margins not palpable. MUSCULOSKELETAL: Extremities without clubbing, cyanosis, or edema. No obvious deformities. NEUROLOGICAL: Awake and alert. No obvious cranial nerve deficits. Motor grossly within normal limits. Five out of 5 muscle strength in the arms and legs. Normal speech. PSYCHIATRIC: Appropriate mood and affect; insight and judgment normal. 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 Monitor BS with accuchecks Monitor BS DVT ppx on heparin drip Discussed with the patient, nurse DC plan pending improvement plan for cardiac cath on Thursday, Dr Hayes is her cardio CosmAnupama ambriz MD May 31, 2017 11:01
[2017-05-31] MEDS: LORazepam 0.5 MG TAB PO PRN ×2 (15:44→23:20)
--- NOTE | 2017-05-31 21:04 | HHI.PR ---
Subjective Remarks NOT SEEN Objective Vitals Vital Signs Date Time Temp Pulse Resp B/P (MAP) Pulse Ox O2 Delivery O2 Flow Rate FiO2 05/31/17 19:32 98.1 60 16 127/67 (87) 98 05/31/17 17:54 62 05/31/17 15:11 98.2 72 18 126/71 (89) 97 05/31/17 12:06 82 05/31/17 11:28 98.2 70 18 162/79 (106) 97 05/31/17 08:00 80 05/31/17 07:58 97.8 61 16 143/73 (96) 96 05/31/17 03:11 98.6 54 16 156/67 (96) 97 05/30/17 23:16 98.0 58 16 133/69 (90) 98 I/O 05/30/17 05/30/17 05/30/17 05/31/17 05/31/17 05/31/17 07:00 15:00 23:00 07:00 15:00 23:00 Intake Total 720 ml 750 ml Balance 720 ml 750 ml Intake Oral 720 ml 750 ml # Voids 7 Result Diagram: 05/28/17 1520 05/28/17 1520 Imaging Last Impressions Myocardial Perfusion Scan Nuc Med 05/29/17 0000 Signed Impressions: Service Date/Time: Monday, May 29, 2017 10:31 - CONCLUSION: 1. Large partially reversible anterior and apical wall defects which could indicate ischemia in the left anterior descending artery distribution. 2. Moderate size reversible defect involving the inferior wall which could indicate ischemia in the right coronary artery distribution. 3. Normal wall motion and calculated ejection fraction. RISK CATEGORY: High (>3%% Annual Mortality Rate) Cecilio Javed MD Chest X-Ray 05/28/17 1515 Signed Impressions: Service Date/Time: May 15:20 - CONCLUSION: Normal examination. [place] Williamson MD Objective Remarks GENERAL: In nad, well nourished well developed patient. CARDIOVASCULAR: Regular rate and rhythm. RESPIRATORY: No accessory muscle use. Clear to auscultation. Breath sounds equal bilaterally. GASTROINTESTINAL: Abdomen soft, non-tender, nondistended. Hepatic and splenic margins not palpable. MUSCULOSKELETAL: Extremities without clubbing, cyanosis, or edema. No obvious deformities. NEUROLOGICAL: Awake and alert. No obvious cranial nerve deficits. Motor grossly within normal limits. Five out of 5 muscle strength in the arms and legs. Normal speech. PSYCHIATRIC: Appropriate mood and affect; insight and judgment normal. A/P Problem List: (1) CAD (coronary artery disease) ICD Code: I25.10 - Atherosclerotic heart disease of [place] coronary artery without angina pectoris Status: Acute Assessment and Plan CAD (coronary artery disease). FRANCISCO positive consulted cardiology, plan for cath on Thursday. Heparin drip Hyperlipidemia. Ct statin Hypertension. Improving Diabetes mellitus. Decrease home insulin to 30 U BID as patient will also be NPO after midnight and also note low BS with home regimen. Monitor BS with accuchecks DVT ppx on heparin drip Problem Qualifiers (1) CAD (coronary artery disease): Qualified Codes: I25.110 - Atherosclerotic heart disease of [place] coronary artery with unstable angina pectoris Jeffrey Griffith MD May 31, 2017 21:04
[2017-05-31] MEDS: ATORVASTATIN 80 MG TAB PO SCH (22:04)
[2017-06-01] VITALS (11 sets, daily range): BP systolic 127–169; BP diastolic 57–83; PULSE 56–90; RESP 16–20; TEMP 97.5–98.7; O2SAT 95–98
[2017-06-01 05:59] LABS: HEMATOCRIT 39.1 % (35.0-46.0); HEMOGLOBIN 13.5 GM/DL (11.6-15.3); MEAN CORPUSCULAR HEMOGLOBIN 29.9 PG (27.0-34.0); MEAN CORPUSCULAR HGB CONC 34.4 % (32.0-36.0); MEAN PLATELET VOLUME 8.8 FL (7.0-11.0); PLATELET COUNT 297 TH/MM3 (150-450); RED CELL DISTRIBUTION WIDTH 13.1 % (11.6-17.2); WHITE BLOOD COUNT 7.4 TH/MM3 (4.0-11.0)
[2017-06-01 06:17] LABS: CHOLESTEROL 134 MG/DL (120-200); TRIGLYCERIDES 326 MG/DL (42-150)
[2017-06-01 06:19] LABS: CHOLESTEROL/ HDL RATIO 3.46 RATIO; HDL CHOLESTEROL 38.7 MG/DL (40.0-60.0); LDL CHOLESTEROL 30 MG/DL (0-99)
[2017-06-01] MEDS ORDERED: INSULIN HUMAN NPH 1,000 UNITS/10 ML VIAL SQ ONE (08:00)
[2017-06-01] MEDS: INSULIN ASPART SUPPLEMENTAL SCALE SQ SCH ×4 (08:30→21:57)
[2017-06-01] MEDS: PANTOPRAZOLE SOD 20 MG DELAYED RELEASE TAB PO SCH (08:39)
[2017-06-01] MEDS: GABAPENTIN 300 MG CAP PO SCH ×3 (08:39→18:20)
[2017-06-01] MEDS: CLOPIDOGREL 75 MG TAB PO SCH (08:39)
[2017-06-01] MEDS: LISINOPRIL 20 MG TAB PO SCH (08:40)
[2017-06-01] MEDS: ASPIRIN 81 MG CHEW TAB CHEW SCH (08:40)
--- NOTE | 2017-06-01 09:56 | HHI.PR ---
Subjective Remarks Follow-up abnormal stress test and diabetes mellitus. No chest pain. Diabetic education. Discussed with nursing staff Objective Vitals Vital Signs Date Time Temp Pulse Resp B/P (MAP) Pulse Ox O2 Delivery O2 Flow Rate FiO2 06/01/17 07:38 97.5 69 18 163/79 (107) 97 06/01/17 07:38 56 06/01/17 05:29 60 06/01/17 03:08 98.2 61 16 127/57 (80) 97 06/01/17 00:03 66 05/31/17 23:23 98.2 64 17 140/78 (98) 96 05/31/17 21:59 66 05/31/17 19:32 98.1 60 16 127/67 (87) 98 05/31/17 17:54 62 05/31/17 15:11 98.2 72 18 126/71 (89) 97 05/31/17 12:06 82 05/31/17 11:28 98.2 70 18 162/79 (106) 97 I/O 05/31/17 05/31/17 05/31/17 06/01/17 06/01/17 06/01/17 07:00 15:00 23:00 07:00 15:00 23:00 Intake Total 750 ml Balance 750 ml Intake Oral 750 ml Result Diagram: 06/01/17 0448 05/28/17 1520 Imaging Last Impressions Myocardial Perfusion Scan Nuc Med 05/29/17 0000 Signed Impressions: Service Date/Time: Monday, May 29, 2017 10:31 - CONCLUSION: 1. Large partially reversible anterior and apical wall defects which could indicate ischemia in the left anterior descending artery distribution. 2. Moderate size reversible defect involving the inferior wall which could indicate ischemia in the right coronary artery distribution. 3. Normal wall motion and calculated ejection fraction. RISK CATEGORY: High (>3%% Annual Mortality Rate) Cecilio Javed MD Chest X-Ray 05/28/17 1515 Signed Impressions: Service Date/Time: May 15:20 - CONCLUSION: Normal examination. [place] Williamson MD Objective Remarks GENERAL: In nad, well nourished well developed patient. CARDIOVASCULAR: Regular rate and rhythm. RESPIRATORY: No accessory muscle use. Clear to auscultation. Breath sounds equal bilaterally. GASTROINTESTINAL: Abdomen soft, non-tender, nondistended. MUSCULOSKELETAL: Extremities without clubbing, cyanosis, or edema. No obvious deformities. NEUROLOGICAL: Awake and alert. No obvious cranial nerve deficits. Motor grossly within normal limits. Five out of 5 muscle strength in the arms and legs. Normal speech. PSYCHIATRIC: Appropriate mood and affect; insight and judgment normal. A/P Problem List: (1) CAD (coronary artery disease) ICD Code: I25.10 - Atherosclerotic heart disease of [place] coronary artery without angina pectoris Status: Acute Assessment and Plan CAD (coronary artery disease). FRANCISCO positive consulted cardiology, plan for cath later today. Heparin drip. Continue antiplatelets and statin. Unable to start beta frida secondary to bradycardia Hyperlipidemia. Ct statin Hypertension. Improving on multiple meds Diabetes mellitus. Give NPH 12 units this morning and restart units twice a day tonight after cardiac catheterization. Diabetic education DVT ppx on heparin drip Discharge Planning Per cardiology Problem Qualifiers (1) CAD (coronary artery disease): Qualified Codes: I25.110 - Atherosclerotic heart disease of [place] coronary artery with unstable angina pectoris Jeffrey Griffith MD Jun 01, 2017 09:56
[2017-06-01] MEDS: SODIUM CHLOR 0.9% 1000 ML INJ 1,000 ML IV SCH ×3 (10:19→17:54)
[2017-06-01] MEDS ORDERED: MIDAZOLAM HCL 2 MG/2 ML VIAL ONE (12:06)
[2017-06-01] MEDS ORDERED: NITROGLYCERIN INJ 5 ML ONE (12:28)
[2017-06-01] MEDS ORDERED: HEPARIN SODIUM - IV 10,000 UNITS/10 ML VIAL ONE (12:34)
[2017-06-01] MEDS ORDERED: hydrALAZINE HCL 20 MG/ML VIAL ONE (12:58)
--- NOTE | 2017-06-01 13:44 | CATHPROC ---
[facility] HIS Report Study Information Study Number Admission Scheduled Start Study Start [id number] May 28 2017 7:14PM 05/30/2017 Jun 01 2017 11:54AM [place] Service Cardiac Catheterization Admit Source Facility Department Emergency department [facility] - Safety Coordinator Physician and Clinical Staff Initial Robert Thomas Internet Ecommerce Specialistkaur Patel RN, Nii Ott cathlab, cathlab Recorder Curtis Salazar RCIS(BS) Scrub Shawn, Alexa,SIGNAL INTEGRITY ENGINEER TECH2 Procedures Performed Procedure Location (Site) Vessel Name Coronary Angiograms LCA Left Coronary Coronary Angiograms RCA Right Coronary Drug Eluting Inflatio LAD Prox Left Coronary Drug Eluting Inflatio RCA Prox Right Coronary L Heart Cath PTCA LAD Prox Left Coronary PTCA RCA Prox Right Coronary Wire insertion Fem Art (right) Femoral Art Equipment Time Dairy Feed Worker Description Size Mfg Part Number Used/Scraped WIRE, BALANCE MIDDLEWEIGHT [id number] 12:37 [employer] 190CM Used 190CM *[id number] TRANSDUCER, TRUWAVE [id number] 11:55 PRASAD MEDINA * Used W/STOCKCOCK *[id number] INTRODUCER SET, 11:55 [employer] FR 5 [id number] *[id number] Used MICROPUNCTURE, STIFFENED [phone] *[id number] [phone] *[id number] 11:55 [employer] INDUSTRIES PACK, CCL CUSTOM * Used *[id number] 12:46 MEDTRONIC BALLOON, 2.0 X 10MM EUPHORA 10MM Used *[id number] BALLOON, 2.25 X 8MM NC [id number] 13:23 MEDTRONIC 8MM Used EUPHORA *[id number] BALLOON, 2.5 X 12MM NC [id number] 12:56 MEDTRONIC 12MM Used EUPHORA *[id number] 12:31 [employer]TRONIC JL 3.5 DXTERITY CATHETER FR 5 Used *[id number] 12:17 [employer]TR[employer] JL 4.0 DXTERITY CATHETER FR 5 Used *[id number] 12:17 MEDTRONIC JR 4.0 DXTERITY CATHETER FR 5 [id number] 13:20 MEDTR[employer]IC STENT, 2.25 12MM GARY 2.25 12MM Used *[id number] 12:52 [employer] STENT, 2.5 15MM GARY 2.5 15MM Used *[id number] 12:36 MEDTRONIC/AVE EBU 3.5 Z2 GUIDE CATHETER FR 6 Used *[id number] 12:36 [employer] MEDICAL 30 JEREMY INDEFLATOR Used *[id number] 11:55 [employer] MEDICAL WIRE, 3MMJ .035 180CM 180CM Used *[id number] 13:03 [employer] MEDICAL WIRE, 3MMJ .035 180CM 180CM Used *[id number] 11:55 NAMIC MANIFOLD, 4 PORT * Used *[id number] 11:55 [employer] OMNIPAQUE, 350 MG, 150ML 150ML [id number] Used [id number] 11:55 [employer] BLANKET,WARM AIR CCL * Used *[id number] 11:55 TERUMO MEDICAL SHEATH, FR5 TERUMO (10CM) FR 5 Used *[id number] 12:36 [employer] MEDICAL SHEATH, FR6 TERUMO (10CM) FR 6 Used *[id number] Equipment Model, Serial, Lot Number and Expiration Data Description Model Number Serial Number Lot Number Expiration Date BALLOON, 2.25 X 8MM NC [id number] 02-16-2019 EUPHORA BALLOON, 2.5 X 12MM NC [id number] 12-26-2018 EUPHORA STENT, 2.25 12MM GARY [id number] 12-22-2018 STENT, 2.5 15MM GARY [id number] 02-19-2019 History: Current Medications Medication Dosage/Unit Route Frequency Last Date/Time Taken ASA PLAVIX Statins (any) Beta Sherry History: Allergies Allergy Reaction Keflex RASH cephalexin RASH History: Risk Factors Family History of Hypertension Dyslipidemia Previous CA Previous Heart Failure Premature CAD Yes Yes Yes No No Prior Valve Prior PCI Prior PCIDate Prior CABG Surgery No Yes 12/30/2016 No Cerebrovascular Peripheral Artery Chronic Lung On Dialysis Diabetes Diabetes Therapy Disease Disease Disease No No No No Yes Oral History: Stress Tests Stress or Imaging Studies Performed Yes Standard Exercise Stress Test No Stress Echo No Stress Test SPECT Stress Test SPECT Result Stress Test SPECT Ischemia Risk/Extent Yes Positive Intermediate Stress Test CMR No Cardiac CTA Coronary Calcium Score No No History: Other Disease Selection Items HTN History: CA/CV Data Previous Cath Date 12/30/2016 History: Other Current Smoker Method Quit Packs a Day Years Used Pack Years Yes Cigarettes 1 Years Ago 1 45 45 Labs Hgb (g/dl) Hct (%) WBC (l/cumm) Platelets (thousands) 11.60-17.00 35.00-51.00 4.00-11.00 150.00-450.00 13.5 39.1 7.4 297 Glucose (mg/dl) BUN (mg/dl) Creatinine (mg/dl) BUN:Creatinine (1:x) 74.00-106.00 7.00-18.00 0.50-1.30 10.00-20.00 144 9 0.8 11.3 Na (meq/l) K (meq/l) 136.00-145.00 3.50-5.10 138 3.8 INR (PTT:PT) 0.90-1.10 1.1 Troponin I (ng/ml) CPK-MB (ng/ML) 0.02-0.05 0.50-3.60 0.02 Not Drawn Medication Medication Total Dose (Bolus/Oral) Medication Total Dosage/Unit 1% XYLOCAINE 20 mL FENTANYL 75 mcg HEPARIN 7000 units HYDRALAZINE 10 mg NTG (IC) 200 mcg VERSED 0.5 mg Medications (Bolus/Oral) Medication Time Given Dosage/Unit Administered By Reason FENTANYL 06/01/2017 12:19:47 PM 25 mcg Nii Patel RN 25 mcg FENTANYL given in lab by Nii Patel RN in Right Forearm via Peripheral IV. Ordered by Robert Chavira 1% XYLOCAINE 06/01/2017 12:20:10 PM 20 mL Robert Allan 20 mL 1% XYLOCAINE given in lab by Robert Allan in Right Groin via Subcutaneous. VERSED 06/01/2017 12:20:20 PM 0.5 mg Nii Patel RN 0.5 mg VERSED given in lab by Nii Patel RN in Right Forearm via Peripheral IV. Ordered by Robert Allan. NTG (IC) 06/01/2017 12:26:57 PM 200 mcg Robert Allan 200 mcg NTG (IC) given in lab by Robert Allan via Intra-coronary. HEPARIN 06/01/2017 12:37:39 PM 7000 units Nii Patel RN 7000 units HEPARIN given in lab by Nii Patel RN in Right Forearm via Peripheral IV. Ordered by Robert Boss HYDRALAZINE 06/01/2017 12:59:25 PM 10 mg Nii Patel RN 10 mg HYDRALAZINE given in lab by Nii Patel RN in Right Forearm via Peripheral IV. Ordered by Robert Llanos FENTANYL 06/01/2017 1:31:37 PM 50 mcg Nii Patel RN 50 mcg FENTANYL given in lab by Nii Patel RN in Right Forearm via Peripheral IV. Ordered by Robert Chavira Medication (Drip) Medication Time Given Dosage/Unit Concentration/Unit Diluent (ml) Solution IV Solutions 06/01/2017 11:56:31 AM 0 mL (IV) 500 NaCl .9 Patient arrived on IV Solutions given by beryl cordoba in Right Forearm via Peripheral IV. Pump/Dr ip Flow = 20 ml/hr using NaCl .9. Ordered by Robert Allan Initial Case Assessment Cardiovascular HR Rhythm NIBP Chest Pain 75 nsr 150/73 0 Edema Present Skin color Skin None Normal Warm Dry Circulatory - Right Pulses Dorsalis Pedis Femoral 2 2 Scale (0,1,2,3,4,d) Circulatory - Left Pulses Dorsalis Pedis Femoral 2 2 Scale (0,1,2,3,4,d) Neurological State Oriented to time-place- Alert Moves all extremities person Respiration - General Respiration Rate SpO2 (%) (B/min) 15 98 Final Case Assessment Cardiovascular HR Rhythm NIBP Chest Pain 83 nsr 135/73 0 Edema Present Skin color Skin None Normal Warm Dry Circulatory - Right Pulses Dorsalis Pedis Femoral 2 2 Scale (0,1,2,3,4,d) Circulatory - Left Pulses Dorsalis Pedis Femoral 2 2 Scale (0,1,2,3,4,d) Neurological State Oriented to time-place- Alert Moves all extremities person Respiration - General Respiration Rate SpO2 (%) (B/min) 15 98 Chronological Log Time Study Chronological Log 11:56:21 Patient arrived via Bed. 11:56:22 Patient Name, D.O.B, / Armband Verified By R.N. 11:56:23 Consent signed by the physician and the patient and verified by the Safety Coordinator staff. 11:56:23 Pre-op and post- op instructions given; patient acknowledges understanding of instructions. 11:56:24 Verbal Stimulation=2 Physical Stimulation=2 Airway=2 Respiration=2 TOTAL=8. (0=absent, 1=li mited, 2=present) 11:56:24 Presedation assessment performed by Safety Coordinator RN. :: Immediate Presedation assesment performed by physician. 11:56: Patient has been NPO for More than 6Hrs. 11:56: Skin Breakdown- NONE PER PATIENT :: Patient Warmer Placed on the Table. 11:: Catie Prominences Protected 11:: A # 20 IV was noted in the Forearm (right). Grade = 0 Patient arrived on IV Solutions given by cathlab, cathlab in Right Forearm via Peripheral IV. P ump/Drip Flow = 20 ml/hr :: using NaCl .9. Ordered by Robert Allan 11:56:50 History and physical on the chart or being dictated. 11:59:20 MD arrived. Vitals capture started with the following parameters, Patient=Adult, Interval=5 min, Initial Pr acqntn=121 mmHg, 12:01:20 Deflation Rate=5 mmHg, Cuff placed on Left Arm Assessment: Initial Case, HR=75 BPM, Rhythm=nsr, DKDT=495/73 mmhg, Chest Pain=0, Edema=None, [place]=Normal, Skin = Warm, Dry Right Pulses: Braden Ped=2, Femoral=2 12:01:26 Left Pulses: Braden Ped=2, Femoral=2 Neurological: State=Alert, Ox3, FAGAN Respiration: Resp=15 B/min, SpO2=98 % Vitals capture started with the following parameters, Patient=Adult, Interval=5 min, Initial Pr yceatq=364 mmHg, 12:03:45 Deflation Rate=5 mmHg, Cuff placed on Left Arm 12:03:55 Reference ECG taken 12:04:33 HR=67 bpm, QSVK=106/73 mmhg, SpO2=98 %, Resp=12 B/min, Pain=0, Peggy=10, Casas=2 12:08:08 Reference ECG taken 12:09:20 Bilateral groins prepped with 2% chlorhexidine, and draped after a 3 minute waiting time. 12:09:30 HR=69 bpm, GMAV=947/84 mmhg, SpO2=95.0 %, Resp=13 B/min, Pain=0, Peggy=10, Casas=2 12:: Contrast Scanned 12:: Immediate Presedation assesment performed by physician. 12:14: Pressure channel 1 zeroed. 12:14:27 HR=71 bpm, QDQU=791/83 mmhg, SpO2=98 %, Resp=18 B/min, Pain=0, Peggy=10, Casas=2 Time Out. Correct patient, correct procedure, correct physician, power injector not loaded with contrast with surgical 12:18:18 team present. Time Out Concurred by MD and individual staff in procedure. 12:18:38 Case Start 12:18:39 Verbal Stimulation=2 Physical Stimulation=2 Airway=2 Respiration=2 TOTAL=8. (0=absent, 1=li mited, 2=present) 12:19:32 HR=65 bpm, MAJM=297/76 mmhg, SpO2=94.0 %, Resp=15 B/min, Pain=0, Peggy=10, Casas=2 12:19:47 25 mcg FENTANYL given in lab by Nii Patel RN in Right Forearm via Peripheral IV. Ordered by Robert Allan. 12:20:10 20 mL 1% XYLOCAINE given in lab by Robert Allan in Right Groin via Subcutaneous. 12:20:20 0.5 mg VERSED given in lab by Nii Patel RN in Right Forearm via Peripheral IV. Ordered b Robert Hamilton. 12:22:41 Access site was Right Femoral Artery. A INTRODUCER SET, MICROPUNCTURE, STIFFENED FR 5 was advanced into the Fem Art (right) using the 12:22:45 Percutaneous technique. A SHEATH, FR5 TERUMO (10CM) FR 5 was exchanged in the Fem Art (right). This was necessary in or jay to 12:22:49 accomodate a larger catheter. 12:24:11 An injection in the Fem Art (right) was made through the SHEATH, FR5 TERUMO (10CM) FR 5. A JR 4.0 DXTERITY CATHETER FR 5 was advanced over a wire. OMNIPAQUE, 350 MG, 150ML 150ML was us ed for 12:24:23 injections. 12:24:33 HR=60 bpm, DRQI=083/68 mmhg, SpO2=96.0 %, Resp=16 B/min, Pain=0, Peggy=10, Casas=2 Recorded Pressure: LV, HR=65, Condition=Condition 1 12:26:35 (Left Ventricle) LV 136/-2/6 Recorded Pressure: LV, Ao, HR=65, Condition=Condition 1 12:26:39 (Left Ventricle) LV 134/-3/7, (Aorta) Ao 135/51/86 Recorded Pressure: Ao, HR=62, Condition=Condition 1 12:26:55 (Aorta) Ao 122/55/81 12:26:57 200 mcg NTG (IC) given in lab by Robert Allan via Intra-coronary. 12:27:00 The RCA was injected and visualized at various angles. OMNIPAQUE, 350 MG, 150ML 150ML used . 12:29:28 HR=66 bpm, WACK=430/60 mmhg, SpO2=87.0 %, Resp=14 B/min, Pain=0, Peggy=10, Casas=2 After removing the current catheter a JL 3.5 DXTERITY CATHETER FR 5 was advanced over a WIRE, 3 MMJ .035 180CM 12:30:40 180CM. 12:32:22 The LCA was injected and visualized at various angles. OMNIPAQUE, 350 MG, 150ML 150ML used . 12:34:51 HR=73 bpm, GOTG=994/67 mmhg, SpO2=95 %, Resp=17 B/min, Pain=0, Peggy=10, Casas=2 12:35:15 Catheter was removed A SHEATH, FR6 TERUMO (10CM) FR 6 was exchanged in the Fem Art (right). This was necessary in or jay to 12:36:15 accomodate a larger catheter. A EBU 3.5 Z2 GUIDE CATHETER FR 6 was advanced over a wire. OMNIPAQUE, 350 MG, 150ML 150ML was u sed for 12:36:21 injections. 12:37:39 7000 units HEPARIN given in lab by Nii Patel RN in Right Forearm via Peripheral IV. Orde red by Robert Allan. 12:39:28 HR=69 bpm, HGBB=184/74 mmhg, SpO2=95 %, Resp=20 B/min, Pain=0, Peggy=10, Casas=2 12:42:02 A WIRE, BALANCE MIDDLEWEIGHT 190CM 190CM was inserted via Fem Art (right). 12:44:56 HR=70 bpm, VFDW=794/67 mmhg, UqH4=054.0 %, Resp=20 B/min, Pain=0, Peggy=10, Casas=2 12:45:01 Interventional wire has crossed the lesion A BALLOON, 2.0 X 10MM EUPHORA 10MM was inserted over WIRE, BALANCE MIDDLEWEIGHT 190CM 190CM via the 12:45:50 LAD Prox. A BALLOON, 2.0 X 10MM EUPHORA 10MM over a WIRE, BALANCE MIDDLEWEIGHT 190CM 190CM in the LAD Pro x was 12:48:52 inflated using a 30 JEREMY INDEFLATOR at 8 jeremy for 18 sec. 12:49:28 HR=72 bpm, RGME=599/75 mmhg, SpO2=96.0 %, Resp=26 B/min, Pain=0, Peggy=10, Casas=2 12:51:12 Balloon Removed. A STENT, 2.5 15MM GARY 2.5 15MM was advanced through a EBU 3.5 Z2 GUIDE CATHETER FR 6 over a WI RE, 12:53:41 BALANCE MIDDLEWEIGHT 190CM 190CM. A STENT, 2.5 15MM GARY 2.5 15MM was deployed using a 30 JEREMY INDEFLATOR at 14 atmospheres for 30 seconds in 12:53:53 the LAD Prox. 12:54:41 Delivery device removed 12:55:55 HR=67 bpm, CYRM=098/79 mmhg, SpO2=93 %, Resp=22 B/min, Pain=0, Peggy=10, Casas=2 A BALLOON, 2.5 X 12MM NC EUPHORA 12MM was inserted over WIRE, BALANCE MIDDLEWEIGHT 190CM 190CM via 12:56:39 the LAD Prox. A BALLOON, 2.5 X 12MM NC EUPHORA 12MM over a WIRE, BALANCE MIDDLEWEIGHT 190CM 190CM in the LAD Prox 12:57:30 was inflated using a 30 JEREMY INDEFLATOR at 18 jeremy for 15 sec. A BALLOON, 2.5 X 12MM NC EUPHORA 12MM over a WIRE, BALANCE MIDDLEWEIGHT 190CM 190CM in the LAD Prox 12:58:59 was inflated using a 30 JEREMY INDEFLATOR at 18 jeremy for 10 sec. 10 mg HYDRALAZINE given in lab by Nii Patel RN in Right Forearm via Peripheral IV. Ordered Robert Ventura 12:59:25 G. 12:59:36 HR=66 bpm, EEXC=709/79 mmhg, SpO2=90 %, Resp=16 B/min, Pain=0, Peggy=10, Casas=2 13:00:00 Wire removed 13:00:55 Balloon Removed. After removing the current catheter a JR 4.0 GUIDE CATHETER FR 6 was advanced over a WIRE, 3MMJ .035 180CM 13:02:28 180CM. 13:04:33 HR=70 bpm, VSZC=755/75 mmhg, SpO2=93.0 %, Resp=11 B/min, Pain=0, Peggy=10, Casas=2 13:07:48 Activated Clotting Time Drawn 13:08:50 A WIRE, BALANCE MIDDLEWEIGHT 190CM 190CM was inserted via Fem Art (right). 13:09:30 HR=76 bpm, NCGL=267/67 mmhg, SpO2=97.0 %, Resp=11 B/min, Pain=0, Peggy=10, Casas=2 13:09:46 ACT (Normal Range 90-180) = 300 13:12:59 Wire removed After removing the current catheter a JR 4.0 SH GUIDE CATHETER FR 6 was advanced over a WIRE, 3 MMJ .035 180CM 13:13:44 180CM. 13:14:33 HR=76 bpm, ZRJZ=136/65 mmhg, SpO2=94.0 %, Resp=14 B/min, Pain=2, Peggy=10, Casas=2 13:16:34 A WIRE, BALANCE MIDDLEWEIGHT 190CM 190CM was inserted via Fem Art (right). 13:17:08 Interventional wire has crossed the lesion A BALLOON, 2.0 X 10MM EUPHORA 10MM was inserted over WIRE, BALANCE MIDDLEWEIGHT 190CM 190CM via the 13:17:19 RCA Prox. A BALLOON, 2.0 X 10MM EUPHORA 10MM over a WIRE, BALANCE MIDDLEWEIGHT 190CM 190CM in the RCA Pro x was 13:18:36 inflated using a 30 JEREMY INDEFLATOR at 8 jeremy for 15 sec. 13:19:32 HR=75 bpm, SGRR=331/64 mmhg, SpO2=95.0 %, Resp=16 B/min, Pain=2, Peggy=10, Casas=2 13:19:33 Balloon Removed. A STENT, 2.25 12MM GARY 2.25 12MM was advanced through a JR 4.0 SH GUIDE CATHETER FR 6 over a W BRET, 13:19:55 BALANCE MIDDLEWEIGHT 190CM 190CM. A STENT, 2.25 12MM GARY 2.25 12MM was deployed using a 30 JEREMY INDEFLATOR at 12 atmospheres for 30 seconds 13:21:37 in the RCA Prox. 13:22:22 Delivery device removed A BALLOON, 2.25 X 8MM NC EUPHORA 8MM was inserted over WIRE, BALANCE MIDDLEWEIGHT 190CM 190CM v ia the 13:23:06 RCA Prox. 13:24:31 HR=80 bpm, FFEY=506/82 mmhg, SpO2=94.0 %, Resp=18 B/min, Pain=2, Peggy=10, Casas=2 A BALLOON, 2.25 X 8MM NC EUPHORA 8MM over a WIRE, BALANCE MIDDLEWEIGHT 190CM 190CM in the RCA P phong 13:24:53 was inflated using a 30 JEREMY INDEFLATOR at 14 jeremy for 15 sec. 13:27:32 Balloon Removed. 13:28:28 Wire removed 13:30:07 HR=81 bpm, XBRL=167/73 mmhg, SpO2=96.0 %, Resp=13 B/min, Pain=2, Peggy=10, Casas=2 13:31:31 Catheter was removed 13:31:37 50 mcg FENTANYL given in lab by Nii Patel RN in Right Forearm via Peripheral IV. Ordered by Robert Allan 13:32:12 Case End 13:32:18 In the Fem Art (right) the SHEATH, FR6 TERUMO (10CM) FR [address] by Beto Escobar, SIGNAL INTEGRITY ENGINEER TECH2. Assessment: Final Case, HR=83 BPM, Rhythm=nsr, WKJG=120/73 mmhg, Chest Pain=0, Edema=None, [place] r=Normal, Skin = Warm, Dry Right Pulses: Braden Ped=2, Femoral=2 13:32:27 Left Pulses: Braden Ped=2, Femoral=2 Neurological: State=Alert, Ox3, FAGAN Respiration: Resp=15 B/min, SpO2=98 % 13:33:11 Catheter(s) removed without difficulty 13:33:43 Sterile dressing applied to site 13:33:44 No case complications noted. 13:33:44 Cine recording checked. 13:33:47 Holding Area notified of successful intervention. 13:33:48 Bedside Report will be given. 13:33:48 Implantable Device card placed in patient's chart. 13:33:49 Contrast Scanned 13:33:51 Verbal Stimulation=2 Physical Stimulation=2 Airway=2 Respiration=2 TOTAL=8. (0=absent, 1=li mited, 2=present) 13:33:57 A Left Heart Cath was performed. 13:34:34 HR=80 bpm, SQLX=755/77 mmhg, SpO2=95.0 %, Resp=16 B/min, Pain=0, Peggy=10, Casas=2 13:40:30 Patient moved to stretcher End Study - Contrast Media Used In Study Contrast Total Opened (mL) Total Used (mL) Total Wasted (mL) Omnipaque 140 140 0 End Study - Maximum Contrast Load Max Contrast Load (mL) 600.0 End Study - Radiation Exposure Fluoro Time (minutes) 16.2 End Study - Patient Disposition Complications Transferred To Interventional Outcome No Safety Coordinator Holding successful
[2017-06-01] MEDS ORDERED: oxyCODONE/ACETAMINOPHEN 5 MG/325 MG TAB PO PRN (13:45)
[2017-06-01] MEDS ORDERED: oxyCODONE/ACETAMINOPHEN 10 MG/325 MG TAB PO PRN (13:45)
[2017-06-01] MEDS ORDERED: MISC INFORMATION XX ONE (13:45)
[2017-06-01] MEDS ORDERED: ACETAMINOPHEN 325 MG TAB PO PRN (13:45)
[2017-06-01] MEDS ORDERED: GLUCAGON 1 MG/ML VIAL OTHER PRN (15:00)
[2017-06-01] MEDS ORDERED: DEXTROSE 50% IN WATER 50 ML VIAL(D50) IV PUSH PRN (15:00)
[2017-06-01] MEDS ORDERED: IOHEXOL 350 MG/ML 100 ML BTL (for Cath Lab) OTHER ONE (15:17)
[2017-06-01] MEDS ORDERED: IOHEXOL 350 MG/ML 50 ML BTL (for Cath Lab) OTHER ONE (15:17)
[2017-06-01 16:09] LABS: HEMOGLOBIN A1C 9.2 % (4.3-6.0)
[2017-06-01] MEDS: INSULIN HUMAN NPH/R 70/30 1,000 UNITS/10 ML VIAL SQ SCH (17:00)
[2017-06-01] MEDS ORDERED: INSULIN HUMAN NPH/R 70/30 1,000 UNITS/10 ML VIAL SQ SCH (17:00)
[2017-06-01] MEDS: ATORVASTATIN 80 MG TAB PO SCH (20:47)
[2017-06-01] MEDS: LORazepam 0.5 MG TAB PO PRN (22:46)
[2017-06-02] VITALS (11 sets, daily range): BP systolic 149–172; BP diastolic 76–77; PULSE 57–84; RESP 16–18; TEMP 98.2–98.5; O2SAT 96–98
[2017-06-02 06:45] LABS: AUTOMATED NEUTROPHIL # 4.9 TH/MM3 (1.8-7.7); BASOPHIL % 0.4 % (0.0-2.0); EOSINOPHIL # 0.1 TH/MM3 (0-0.4); EOSINOPHIL % 1.2 % (0.0-4.0); HEMATOCRIT 39.5 % (35.0-46.0); HEMOGLOBIN 13.3 GM/DL (11.6-15.3); LYMPH % 26.4 % (9.0-44.0); MEAN CORPUSCULAR HEMOGLOBIN 29.4 PG (27.0-34.0); MEAN CORPUSCULAR HGB CONC 33.8 % (32.0-36.0); MEAN PLATELET VOLUME 8.6 FL (7.0-11.0); MONOCYTE # 0.6 TH/MM3 (0-0.9); PLATELET COUNT 287 TH/MM3 (150-450); RED BLOOD COUNT 4.54 MIL/MM3 (4.00-5.30); RED CELL DISTRIBUTION WIDTH 13.1 % (11.6-17.2); WHITE BLOOD COUNT 7.6 TH/MM3 (4.0-11.0)
[2017-06-02 07:16] LABS: BICARBONATE 29.7 MEQ/L (21.0-32.0); CALCIUM 9.1 MG/DL (8.5-10.1); CREATININE 0.92 MG/DL (0.50-1.00)
[2017-06-02] MEDS: ASPIRIN 81 MG CHEW TAB CHEW SCH (08:40)
[2017-06-02] MEDS: GABAPENTIN 300 MG CAP PO SCH (08:41)
[2017-06-02] MEDS: PANTOPRAZOLE SOD 20 MG DELAYED RELEASE TAB PO SCH (08:42)
[2017-06-02] MEDS: LISINOPRIL 20 MG TAB PO SCH (08:42)
[2017-06-02] MEDS: CLOPIDOGREL 75 MG TAB PO SCH (08:42)
[2017-06-02] MEDS: INSULIN ASPART SUPPLEMENTAL SCALE SQ SCH (08:43)
[2017-06-02] MEDS: INSULIN HUMAN NPH/R 70/30 1,000 UNITS/10 ML VIAL SQ SCH (08:43)
[2017-06-02] MEDS ORDERED: PNEUMOCOCCAL POLYVALENT INJ 25 MCG/0.5 ML SYR IM ONE (09:00)
[2017-06-02] MEDS: SODIUM CHLOR 0.9% 1000 ML INJ 1,000 ML IV SCH (09:14)
--- NOTE | 2017-06-02 09:48 | HHI.DCPOC ---
Discharge Care Plan Diagnosis: (1) CAD (coronary artery disease) Goals to Promote Your Health * To prevent worsening of your condition and complications * To maintain your health at the optimal level Directions to Meet Your Goals Take your medications as prescribed Follow your dietary instruction Follow activity as directed Keep your appointments as scheduled Take your immunizations and boosters as scheduled If your symptoms worsen call your PCP, if no PCP go to Urgent Care Center or Emergency Room Smoking is Dangerous to Your Health. Avoid second hand smoke Call the 24-hour hour crisis hotline for domestic abuse at Palmira Stern MD Jun 02, 2017 09:48
--- NOTE | 2017-06-02 10:11 | PD.CARD.PN ---
Subjective Subjective Remarks No events overnight No chest pain/SOB Objective Medications Current Medications Medications (Trade) Dose Ordered Sig/Paula Route Start Time Stop Time Status Last Admin (NS Flush) 2 ml UNSCH PRN IV FLUSH 05/28/17 22:45 05/31/17 08:33 (NS Flush) 2 ml UNSCH PRN IV FLUSH 05/28/17 22:45 (Tylenol) 500 mg Q4H PRN PO 05/28/17 22:45 05/30/17 16:46 (Morphine Inj) 2 mg Q4H PRN IV 05/28/17 23:00 06/01/17 16:10 (Zofran Inj) 4 mg Q6H PRN IV PUSH 05/28/17 22:45 (Norvasc) 10 mg DAILY PO 05/29/17 12:45 06/02/17 08:40 (Aspirin Chew) 81 mg DAILY CHEW 05/30/17 09:00 06/02/17 08:40 (Lipitor) 80 mg HS PO 05/29/17 21:00 06/01/17 20:47 (Plavix) 75 mg DAILY PO 05/29/17 12:45 06/02/17 08:42 (Neurontin) 300 mg TID PO 05/29/17 13:00 06/02/17 08:41 (Prinivil) 40 mg DAILY PO 05/29/17 13:00 06/02/17 08:42 (Protonix) 20 mg DAILY PO 05/29/17 13:00 06/02/17 08:42 Sodium Chloride 1,000 ml @ 100 mls/hr Q10H IV 05/30/17 11:14 06/04/17 11:13 06/01/17 10:19 (Benadryl) 50 mg CASH PROCESSING SPECIALIST PO 05/30/17 11:15 06/03/17 11:14 (Valium) 10 mg CASH PROCESSING SPECIALIST PO 05/30/17 11:15 06/03/17 11:14 (Versed Inj) 1 mg CASH PROCESSING SPECIALIST IV PUSH 05/30/17 11:15 06/03/17 11:14 (Ativan) 0.25 mg Q8H PRN PO 05/30/17 11:45 06/01/17 22:46 (NovoLIN 70/30 INJ) 60 units DAILY@0800,1600 SQ 06/01/17 17:00 06/02/17 08:43 (Tylenol) 325 mg Q4H PRN PO 06/01/17 13:45 (Percocet 5-325 Mg) 1 tab Q4H PRN PO 06/01/17 13:45 (Percocet 10-325 Mg) 1 tab Q4H PRN PO 06/01/17 13:45 (NovoLOG SUPPLEMENTAL SCALE) 1 ACHS SLIDING SCALE SQ 06/01/17 17:00 06/02/17 08:43 (D50w (Vial) Inj) 50 ml UNSCH PRN IV PUSH 06/01/17 15:00 (Glucagon Inj) 1 mg UNSCH PRN OTHER 06/01/17 15:00 Vital Signs / I&O Vital Signs Date Time Temp Pulse Resp B/P (MAP) Pulse Ox O2 Delivery O2 Flow Rate FiO2 06/02/17 08:49 98.2 77 18 172/76 (108) 98 06/02/17 06:00 62 06/02/17 05:00 57 06/02/17 04:00 98.5 67 16 149/77 (101) 96 06/02/17 04:00 67 06/02/17 02:00 61 06/02/17 01:00 65 06/02/17 00:00 61 06/01/17 23:15 98.7 77 18 148/69 (95) 98 06/01/17 23:00 77 06/01/17 22:00 78 06/01/17 21:00 80 06/01/17 20:00 98.4 70 18 147/71 (96) 95 06/01/17 17:30 90 20 169/83 (111) 96 06/01/17 17:30 77 06/01/17 14:23 98 Room Air 06/01/17 11:14 98.0 67 16 149/71 (97) 98 I/O 06/01/17 06/01/17 06/01/17 06/02/17 06/02/17 06/02/17 07:00 15:00 23:00 07:00 15:00 23:00 Intake Total 960 ml Output Total 300 ml Balance -300 ml 960 ml Intake Oral 960 ml Output Urine Total 300 ml # Voids 5 Physical Exam GENERAL: NAD, AAOx3 SKIN: Warm and dry. HEAD: Atraumatic. Normocephalic. EYES: Pupils equal and round. No scleral icterus. No injection or drainage. ENT: No nasal bleeding or discharge. Mucous membranes pink and moist. NECK: Trachea midline. No JVD. CARDIOVASCULAR: Regular rate and rhythm. RESPIRATORY: No accessory muscle use. Clear to auscultation. Breath sounds equal bilaterally. GASTROINTESTINAL: Abdomen soft, non-tender, nondistended. Hepatic and splenic margins not palpable. MUSCULOSKELETAL: Extremities without clubbing, cyanosis, or edema. No obvious deformities. Right femoral no hematoma, distal pulses intact NEUROLOGICAL: Awake and alert. No obvious cranial nerve deficits. Motor grossly within normal limits. Five out of 5 muscle strength in the arms and legs. Normal speech. PSYCHIATRIC: Appropriate mood and affect; insight and judgment normal. Laboratory Laboratory Tests Test 06/01/17 19:18 06/02/17 04:30 Activated Partial Thromboplast Time 24.4 SEC White Blood Count 7.6 TH/MM3 Red Blood Count 4.54 MIL/MM3 Hemoglobin 13.3 GM/DL Hematocrit 39.5 % Mean Corpuscular Volume 87.0 FL Mean Corpuscular Hemoglobin 29.4 PG Mean Corpuscular Hemoglobin Concent 33.8 % Red Cell Distribution Width 13.1 % Platelet Count 287 TH/MM3 Mean Platelet Volume 8.6 FL Neutrophils (%) (Auto) 64.0 % Lymphocytes (%) (Auto) 26.4 % Monocytes (%) (Auto) 8.0 % Eosinophils (%) (Auto) 1.2 % Basophils (%) (Auto) 0.4 % Neutrophils # (Auto) 4.9 TH/MM3 Lymphocytes # (Auto) 2.0 TH/MM3 Monocytes # (Auto) 0.6 TH/MM3 Eosinophils # (Auto) 0.1 TH/MM3 Basophils # (Auto) 0.0 TH/MM3 CBC Comment DIFF FINAL Differential Comment Blood Urea Nitrogen 16 MG/DL Creatinine 0.92 MG/DL Random Glucose 212 MG/DL Calcium Level 9.1 MG/DL Sodium Level 137 MEQ/L Potassium Level 3.9 MEQ/L Chloride Level 102 MEQ/L Carbon Dioxide Level 29.7 MEQ/L Anion Gap 5 MEQ/L Estimat Glomerular Filtration Rate 62 ML/MIN Assessment and Plan Problem List: (1) CAD (coronary artery disease) ICD Codes: I25.10 - Atherosclerotic heart disease of [place] coronary artery without angina pectoris Status: Acute (2) Hyperlipidemia ICD Codes: E78.5 - Hyperlipidemia, unspecified Status: Chronic (3) Hypertension ICD Codes: I10 - Essential (primary) hypertension Status: Chronic Assessment and Plan 1) CAD s/p CELSO to RCA/LAD Con't ASA/Plavix/ROSY-I/Statin No BB, history of significant bradycardia on low dose BB 2) Cardiovascularly stable for discharge today 3) Has office visit with me in early Jun Problem Qualifiers (1) CAD (coronary artery disease): Qualified Codes: I25.110 - Atherosclerotic heart disease of [place] coronary artery with unstable angina pectoris (2) Hyperlipidemia: Qualified Codes: E78.5 - Hyperlipidemia, unspecified (3) Hypertension: Qualified Codes: I10 - Essential (primary) hypertension Robert Allan DO Jun 02, 2017 10:11
--- NOTE | 2017-06-02 10:51 | HHI.DS ---
Discharge Summary Admission Date Jun 01, 2017 at 10:51 Discharge Date: Jun 02, 2017 Admitting Diagnosis atypical chest pain (1) CAD (coronary artery disease) ICD Code: I25.10 - Atherosclerotic heart disease of crow coronary artery without angina pectoris Diagnosis: Principal Status: Acute Procedures See hospital course. Brief History - From Admission 62 YO lady with a known history of CAD and silent MO in past with two stents by Dr. Allan in December. She has been experiencing some vague SOB and palpitations while working out doors since the cold weather started about two weeks ago. Patient was initially admitted to chest pain center to rule out ACS. CBC/BMP: 06/02/17 0430 06/02/17 0430 Significant Findings Laboratory Tests Test 05/30/17 14:25 05/30/17 19:52 05/31/17 07:26 05/31/17 16:09 Activated Partial Thromboplast Time 30.7 SEC (24.3-30.1) 31.7 SEC (24.3-30.1) 41.5 SEC (24.3-30.1) Test 05/31/17 22:13 06/01/17 04:48 06/01/17 19:18 06/02/17 04:30 Activated Partial Thromboplast Time 41.1 SEC (24.3-30.1) 43.9 SEC (24.3-30.1) Hemoglobin A1c 9.2 % (4.3-6.0) Triglycerides Level 326 MG/DL (42-150) HDL Cholesterol 38.7 MG/DL (40.0-60.0) Random Glucose 212 MG/DL (74-106) Estimat Glomerular Filtration Rate 62 ML/MIN (>89) Imaging Last Impressions Myocardial Perfusion Scan Nuc Med 05/29/17 0000 Signed Impressions: Service Date/Time: Monday, May 29, 2017 10:31 - CONCLUSION: 1. Large partially reversible anterior and apical wall defects which could indicate ischemia in the left anterior descending artery distribution. 2. Moderate size reversible defect involving the inferior wall which could indicate ischemia in the right coronary artery distribution. 3. Normal wall motion and calculated ejection fraction. RISK CATEGORY: High (>3%% Annual Mortality Rate) Cecilio Javed MD Chest X-Ray 05/28/17 1515 Signed Impressions: Service Date/Time: May 15:20 - CONCLUSION: Normal examination. Lake Williamson MD PE at Discharge GENERAL: In nad, well nourished well developed patient. CARDIOVASCULAR: Regular rate and rhythm. RESPIRATORY: No accessory muscle use. Clear to auscultation. Breath sounds equal bilaterally. GASTROINTESTINAL: Abdomen soft, non-tender, nondistended. MUSCULOSKELETAL: Extremities without clubbing, cyanosis, or edema. No obvious deformities. NEUROLOGICAL: Awake and alert. No obvious cranial nerve deficits. Motor grossly within normal limits. Five out of 5 muscle strength in the arms and legs. Normal speech. PSYCHIATRIC: Appropriate mood and affect; insight and judgment normal. Pt update on day of discharge Follow-up for atypical chest pain Patient denies any chest pain, shortness of breathing, palpitation, lightheadedness dizziness. She is very anxious to go home. She saw Dr. Allan early who stated that she can be discharged home. I also spoke to Dr. Allan who stated patient will be discharged home. She denies any pain. Hospital Course This is a 62-year-old female who presented with atypical chest pain. Patient had cardiac workup which included cardiac enzymes were negative. She then had a Lexiscan done which was positive. Cake Winder was consulted and she was put on a heparin drip. She was initially started on aspirin and statin. Unable to start a beta frida secondary to bradycardia. Patient had PCI done by Dr. Allan in which she had CELSO to RCA/LAD on 06/01/2017. She did well with the procedure with no complication afterwards. Patient was discharged asymptomatic and stable condition. Per potato bucker continue aspirin, Plavix, ROSY inhibitor and statin. They did not recommend a beta frida secondary to low-dose of frida. Pt Condition on Discharge: Stable Discharge Disposition: Discharge Home Discharge Time: <= 30 minutes Discharge Instructions DIET: Follow Instructions for: Heart Healthy Diet, Diabetic Diet Activities you can perform: See Additionl Instruction Other Activity Instructions: as directed by your potato bucker. Follow up Referrals: Cardiology, Interventional @ [facility] with Robert Allan DO PCP Follow-up - 1 Week Continued Medications: Amlodipine (Amlodipine) 10 Mg Tab 10 MG PO DAILY for Blood Pressure Management, #30 TAB 0 Refills Aspirin (Aspirin Low Strength) 81 Mg Chew 81 MG CHEW DAILY for 30 Days, EA Atorvastatin (Atorvastatin) 80 Mg Tab 80 MG PO HS for 30 Days, TAB Clopidogrel (Plavix) 75 Mg Tab 75 MG PO DAILY for 30 Days, TAB Gabapentin (Gabapentin) 300 Mg Cap 300 MG PO TID, #90 CAP 0 Refills Hydroxyzine HCl (Hydroxyzine HCl) 25 Mg Tab 25 MG PO QID, TAB 0 Refills Insulin NPH Isophane-Reg (Human) 70-30 Inj (Humulin 70-30 Inj) 1,000 Unit/10 Ml Vial 60 UNITS IJ BID PRN for Blood Sugar Management for 30 Days, 3 Refills Lisinopril (Lisinopril) 40 Mg Tab 40 MG PO DAILY for Blood Pressure Management, #30 TAB 0 Refills Omeprazole (Omeprazole) 20 Mg Cap 20 MG PO DAILY Discontinued Medications: Metformin (Metformin) 500 Mg Tab 500 MG PO BIDPC for Blood Sugar Management, #60 TAB 0 Refills With meals Do not take until 01/01/17 Palmira Stern MD Jun 02, 2017 10:51
== END 2017-06-02 12:08 | disposition home or self-care (01) | DRG 247 ==
LOC: NEPE 14:39 → NEDA 19:14 → NEPGCP 20:16 → OBSVTOIN 06-01 10:51 → HCIS 06-01 12:59
PROVIDERS: ADMIT Family Medicine; ATTEND Family Medicine
PROC: 4A023N7 Measurement of Cardiac Sampling and Pressure, Left Heart, Percutaneous Approach (ICD-10-PCS; 2017-06-01)
PROC: B2111ZZ Fluoroscopy of Multiple Coronary Arteries using Low Osmolar Contrast (ICD-10-PCS; 2017-06-01)
PROC: 027135Z Dilation of Coronary Artery, Two Arteries with Two Drug-eluting Intraluminal Devices, Percutaneous Approach (ICD-10-PCS; principal; 2017-06-01 11:00)
DX: I25.110 Atherosclerotic heart disease of native coronary artery with unstable angina pectoris (principal); E11.42 Type 2 diabetes mellitus with diabetic polyneuropathy; I10 Essential (primary) hypertension; K21.9 Gastro-esophageal reflux disease without esophagitis; E78.5 Hyperlipidemia, unspecified; R00.1 Bradycardia, unspecified; F41.9 Anxiety disorder, unspecified; F32.9 Major depressive disorder, single episode, unspecified; M19.90 Unspecified osteoarthritis, unspecified site; Z23 Encounter for immunization; Z95.5 Presence of coronary angioplasty implant and graft; I25.2 Old myocardial infarction; Z87.891 Personal history of nicotine dependence; Z82.49 Family history of ischemic heart disease and other diseases of the circulatory system; Z79.4 Long term (current) use of insulin
CPT/HCPCS: 71045; 78452; 80048; 80053; 80061; 82272; 82550; 82552; 82948; 83036; 83735; 83880; 84484; 85002; 85025; 85027; 85347; 85610; 85730; 90732; 92928; 92929; 93005; 93017; 93458; 96361; 96365; 96366; 96372; 96375; 96376; 99152; 99153; A9502; C1725; C1769; C1874; C1887; C1893; G0378; J0360; J1644; J1815; J2250; J2270; J2785; J3010; J7030; Q9967